=== PATIENT | male | born 1940 | race Caucasian/White ===

== ENCOUNTER 2017-09-09 18:26 | Emergency (ER) | payer OTHER, MEDICARE ==
[~2017-09-09] VITALS: Ht 182.9 cm; Wt 97.5 kg
[2017-09-09 19:03] LABS: ABSOLUTE BASOPHIL COUNT 0.1 /CUMM (0.0-0.2); ABSOLUTE EOSINOPHIL COUNT 0.1 /CUMM (0.0-0.7); ABSOLUTE GRANULOCYTE CT 6.6 /CUMM (1.4-6.5); ABSOLUTE LYMPH COUNT 3.2 /CUMM (1.2-3.4); ABSOLUTE MONOCYTE COUNT 1.1 /CUMM (0.10-0.60); BASOPHIL % 0.9 % (0.0-2.0); EOSINOPHIL % 0.8 % (0-5); GRANULOCYTE % 59.1 % (42.2-75.2); HEMATOCRIT 46.1 % (42-52); MEAN CORPUSCULAR HGB 32.7 PG (27.0-31.0); MEAN CORPUSCULAR HGB CONC 34.4 G/DL (33.0-37.0); MEAN CORPUSCULAR VOLUME 95.1 FL (80.0-94.0); MEAN PLATELET VOLUME 8.1 FL (7.4-10.4); PLATELET COUNT 287 /CUMM (130-400); RBC DISTRIBUTION WIDTH 13.1 % (11.5-14.5); RED BLOOD CELL CT 4.84 /CUMM (4.70-6.10); WHITE BLOOD CELL COUNT 11.2 /CUMM (4.8-10.8)
--- NOTE | 2017-09-09 19:25 | RADIOLOGY REPORT ---
EXAMINATION: XR ELBOW, LEFT CLINICAL INFORMATION: Fall with pain and swelling. COMPARISON: None TECHNIQUE: Four views of the left elbow. FINDINGS: The bones and soft tissues are normal. No fracture or joint effusion. Alignment is anatomic. Joint spaces are maintained. IMPRESSION: No acute findings of the left elbow.
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
[2017-09-09 20:33] VITALS: BP 117/58
== END 2017-09-09 20:33 ==
LOC: ERH 18:26
PROVIDERS: Emergency Medicine
DX: S20.211A Contusion of right front wall of thorax, initial encounter (principal); S09.90XA Unspecified injury of head, initial encounter; W19.XXXA Unspecified fall, initial encounter; Y92.003 Bedroom of unspecified non-institutional (private) residence as the place of occurrence of the external cause; Y93.9 Activity, unspecified
CPT/HCPCS: 73080-LT; 93005; 93010

== ENCOUNTER 2017-09-14 17:56 | Emergency (ER) | payer OTHER, MEDICARE ==
[~2017-09-14] VITALS: Ht 177.8 cm; Wt 86.2 kg
[2017-09-14 18:08] VITALS: BP 129/79
--- NOTE | 2017-09-14 18:19 | ED NECK/BACK PAIN COMPLAINT ---
History of Present Illness General Chief Complaint: Fall Stated Complaint: WORSENING NECK PAIN S/P FALL 2 WEEKS AGO 2ND VISIT Source: patient, old records Exam Limitations: no limitations Vital Signs & Intake/Output Vital Signs & Intake/Output Vital Signs Date Time Temp Pulse Resp B/P B/P Pulse O2 O2 Flow FiO2 Mean Ox Delivery Rate 09/14 1808 98.6 92 18 129/79 98 Room Air Allergies Coded Allergies: No Known Allergies (09/09/17) Reconcile Medications Cyclobenzaprine HCl 10 MG TABLET 1 TAB PO QPM NECK PAIN Ibuprofen 400 MG TABLET 1 TAB PO TID NECK PAIN Oxycodone HCl/Acetaminophen (Oxycodone-Acetaminophen 5-325) 5 MG-325 MG TABLET 1 TAB PO TIDPRN NECK PAIN Triage Note: 76M RETURNS TO ED AFTER BEING SEEN EARLIER THIS WEEK S/P ?SYNCOPAL EPISODE AND FALL, HAD CT OF HEAD, NECK, MAXILLOFACIAL AND CHEST DONE WITH LEFT ELBOX XRAY. REPORTS 2-3 DAYS OF WORSENING CERVICAL PAIN RADIATING INTO SHOULDERS. NOTABLE DECREASED ROM AND UNABLE TO TOLERATE EAR TO SHOULDER OR CHIN TO CHEST. DENIES C-SPINE BONY TENDERNESS. DENIES CHANGE IN TINGLING TO HANDS FROM BASELINE. REPORTS HE DID NOT HAVE RX'S ON DISCHARGE AFTER LAST VISIT. SEEN BY DR PRATHER IN TRIAGE AND MEDICATED WITH IM TORADOL Triage Nurses Notes Reviewed? yes HPI: 76M PMH T2DM, HLD, recently seen in [place] ED for fall 5 days ago, presents with 1 day of severe neck stiffness and pain. 5 days ago got out of bed, tripped and hit his face on a dresser, and fell unconscious to the floor for an unknown period of time. He was worked up in the ED and had imaging of the face, head, neck, and elbow, all of which were negative. He was sent home and was doing well. He had a long car ride yesterday and since then has had severe paraspinal bilateral neck pain radiating to both shoulders. He has difficulty moving his head to the right due to pain. He has chronic paresthesia of both hands that is unchanged. He denies trauma since his fall 5 days ago, and denies fever, chills, vision changes, confusion, hearing changes, extremity weakness/ numbness, imbalance, ataxia. He is otherwise well and has no other complaints. He is walking well and drove here. Past History Travel History Traveled to [place] past 21 day No Medical History Any Pertinent Medical History? see below for history Neurological: NONE EENT: NONE Cardiovascular: hypertension, hyperlipidemia Respiratory: NONE Gastrointestinal: NONE Hepatic: NONE Renal: benign prost hyperplasia Musculoskeletal: NONE Psychiatric: depression, insomnia Endocrine: diabetes Surgical History Surgical History: appendectomy, splenectomy d/t ITP in 2006 cervical neck surgery for herniated disc Psychosocial History Who do you live with Spouse What is your primary language Northern Irish Tobacco Use: Never used ETOH Use: occasional use Illicit Drug Use: denies illicit drug use Family History Hx Contributory? No Review of Systems Review of Systems Constitutional: Reports: no symptoms. Eyes: Reports: no symptoms. Ears, Nose, Throat, Mouth: Reports: no symptoms. Respiratory: Reports: no symptoms. Cardiovascular: Reports: no symptoms. Gastrointestinal/Abdominal: Reports: no symptoms. Musculoskeletal: Reports: see HPI. Skin: Reports: no symptoms. Neurological/Psychological: Reports: no symptoms. All Other Systems: Reviewed and Negative Physical Exam Physical Exam General Appearance: well developed/nourished, mild distress Head: atraumatic, normal appearance Eyes: Bilateral: normal appearance, PERRL, EOMI, normal inspection. Ears, Nose, Throat, Mouth: hearing grossly normal, moist mucous membrane Neck: normal inspection, supple, bilateral paraspinal muscle tenderness, movement to the rightlimited by pain Respiratory: normal breath sounds Cardiovascular: regular rate/rhythm Gastrointestinal: soft, non-tender Back: normal inspection Extremities: normal range of motion Neurologic/Psych: awake, alert, oriented x 3, normal mood/affect Skin: intact, normal color, warm/dry Core Measures CVA/TIA Diagnosis: No Progress Differential Diagnosis: AAA, aortic dissection, C spine injury, carotid dissection, cauda equina syn, herniated disc, myofascial strain, pyelo/UTI, sciatica, spinal cord inj, thoracic outlet syn, T/L spine injury, ureterolithiasis Plan of Care: Current Medications Sig/Laura Start time Last Medication Dose Stop Time Status Admin Ketorolac 30 MG ONCE ONE 09/14 1814 UNVr 09/14 Tromethamine 09/14 (Toradol) Imaging from 5 days ago was negative, no benefit to repeating. Patient has neck strain and can be treated symptomatically. Was educated about treatment at home and when to return to ED. Departure Departure Disposition: HOME OR SELF CARE Condition: Stable Clinical Impression Primary Impression: Neck strain Referrals: Patricia BACK,Amilcar Romero (PCP/Family) Additional Instructions: Follow up with your PCP. The pain medication prescribed may make you sleepy or drowsy. You should not drive while taking this medication. You can use a warm compress or a rice sock on your neck for pain. Hot showers will help as well. Return to ER if any new or worsening symptoms. Departure Forms: Customer Survey General Discharge Information Prescriptions: Current Visit Scripts Cyclobenzaprine HCl 1 TAB PO QPM #30 TAB Oxycodone HCl/Acetaminophen (Oxycodone-Acetaminophen 5-325) 1 TAB PO TIDPRN #15 TAB Ibuprofen 1 TAB PO TID #30 TAB Oxycodone HCl 1 TAB PO TIDPRN #15 TAB
[2017-09-14] MEDS ORDERED: OXYCODONE-ACET1 EACH PO (18:35)
[2017-09-14] MEDS ORDERED: IBUPROFEN400 M1 PO (18:35)
[2017-09-14] MEDS ORDERED: CYCLOBENZAPRINE10 M1 PO (18:35)
[2017-09-14] MEDS ORDERED: OXYCODONE HCL5 M1 PO (18:44)
== END 2017-09-14 18:41 ==
LOC: ERH 17:56
DX: S16.1XXA Strain of muscle, fascia and tendon at neck level, initial encounter (principal); W18.09XA Striking against other object with subsequent fall, initial encounter; Y92.9 Unspecified place or not applicable; Y93.9 Activity, unspecified
CPT/HCPCS: 96372; J1885

== ENCOUNTER 2017-09-20 00:46 | Observation (INO) | payer OTHER, MEDICARE ==
[~2017-09-20] VITALS: Ht 182.9 cm; Wt 97.5 kg
[~2017-09-20 00:46] MED LIST: CYCLOBENZAPRINE10 M1 PO; IBUPROFEN400 M1 PO; OXYCODONE HCL5 M1 PO; OXYCODONE-ACET1 EACH PO
[2017-09-20 01:31] LABS: ABSOLUTE BASOPHIL COUNT 0 /CUMM (0.0-0.2); ABSOLUTE EOSINOPHIL COUNT 0 /CUMM (0.0-0.7); ABSOLUTE GRANULOCYTE CT 7.7 /CUMM (1.4-6.5); ABSOLUTE LYMPH COUNT 1.4 /CUMM (1.2-3.4); ABSOLUTE MONOCYTE COUNT 1.1 /CUMM (0.10-0.60); BASOPHIL % 0.4 % (0.0-2.0); EOSINOPHIL % 0.3 % (0-5); GRANULOCYTE % 75.2 % (42.2-75.2); HEMATOCRIT 42.6 % (42-52); MEAN CORPUSCULAR HGB 32.9 PG (27.0-31.0); MEAN CORPUSCULAR HGB CONC 35.3 G/DL (33.0-37.0); MEAN CORPUSCULAR VOLUME 93.4 FL (80.0-94.0); MEAN PLATELET VOLUME 7.3 FL (7.4-10.4); PLATELET COUNT 393 /CUMM (130-400); RBC DISTRIBUTION WIDTH 12.7 % (11.5-14.5); RED BLOOD CELL CT 4.56 /CUMM (4.70-6.10); WHITE BLOOD CELL COUNT 10.3 /CUMM (4.8-10.8)
--- NOTE | 2017-09-20 02:21 | CT SCAN REPORT ---
EXAMINATION: CT HEAD WITHOUT CONTRAST CLINICAL INFORMATION: Fall, confusion, hallucination COMPARISON: 09/09/2017 TECHNIQUE: Contiguous axial imaging was performed from the skull base to vertex without intravenous administration of contrast. DLP: 627.9 mGy-cm FINDINGS: There is no evidence of acute intracranial hemorrhage or territorial infarction. No abnormal mass effect or midline shift is seen. Mclaughlin to white matter differentiation is well preserved. No extra-axial fluid collections are identified. The ventricles are normal in size. There is no abnormal attenuation within the brain parenchyma. The osseous structures and soft tissues are normal. The mastoid air cells and visualized portions of the paranasal sinuses are well aerated. IMPRESSION: No acute intracranial pathology.
--- NOTE | 2017-09-20 02:22 | RADIOLOGY REPORT ---
EXAMINATION: XR PORTABLE CHEST CLINICAL INFORMATION: Cough, confusion COMPARISON: 09/09/2017 TECHNIQUE: Portable frontal view of the chest was obtained. FINDINGS: Lung volumes are symmetric. No focal consolidation is seen. No evidence of pneumothorax, pleural effusion, or pulmonary edema. The cardiomediastinal contour is unremarkable. No acute osseous findings are seen. IMPRESSION: No acute cardiopulmonary findings.
--- NOTE | 2017-09-20 02:45 | ED AMS/SEIZURE/WEAK/DIZZY ---
History of Present Illness General Chief Complaint: Altered Mental Status Stated Complaint: BIBA AMS Source: patient, family, old records, EMS Exam Limitations: clinical condition, confusion Vital Signs & Intake/Output Vital Signs & Intake/Output Vital Signs Date Time Temp Pulse Resp B/P B/P Pulse O2 O2 Flow FiO2 Mean Ox Delivery Rate 09/20 0510 104 16 129/65 94 Room Air Room Air 09/20 0058 Room Air 09/20 0048 98.4 120 20 135/80 94 Room Air Allergies Coded Allergies: No Known Allergies (09/09/17) Reconcile Medications Cyclobenzaprine HCl 10 MG TABLET 1 TAB PO QPM NECK PAIN Ibuprofen 400 MG TABLET 1 TAB PO TID NECK PAIN Oxycodone HCl 5 MG TABLET 1 TAB PO TIDPRN NECK STRAIN Oxycodone HCl/Acetaminophen (Oxycodone-Acetaminophen 5-325) 5 MG-325 MG TABLET 1 TAB PO TIDPRN NECK PAIN Triage Note: 76YO MALE TO 3 VIA AMB W/CO "PAIN TO THE BACK OF HIS NECK,SHOULDERS SP FALL LAST" STATES HE WAS SEEN HERE, PLACED ON FLEXERIL AND IBUPROFEN BUT THEY ARE NOT WORKING" RAMBLING SPEECH AND UNSTEADY GAIT PRESENT Triage Nurses Notes Reviewed? yes Onset: 2 days Duration: day(s):, constant, continues in ED Timing: recent history Injury Environment: home Severity: moderate, severe Modifying Factors: Worsens With: medication. HPI: 2 days prior to admission family notes patient is had episodic delusions hallucinations and bizarre behavior. He was started on ibuprofen Flexeril Percocet for neck pain after fall 5 days prior to admission. He denies fever chills nausea vomiting diarrhea abdominal pain chest pain shortness of breath headache dysuria rash bleeding. Past History Travel History Traveled to [place] past 21 day No Medical History Any Pertinent Medical History? see below for history Neurological: NONE EENT: NONE Cardiovascular: hypertension, hyperlipidemia Respiratory: NONE Gastrointestinal: NONE Hepatic: NONE Renal: benign prost hyperplasia Musculoskeletal: NONE Psychiatric: depression, insomnia Endocrine: diabetes Surgical History Surgical History: appendectomy, splenectomy d/t ITP in 2006 cervical neck surgery for herniated disc Psychosocial History Who do you live with Spouse What is your primary language Georgian Tobacco Use: Refused to answer Family History Hx Contributory? No Review of Systems Review of Systems Constitutional: Reports: no symptoms. EENTM: Reports: no symptoms. Respiratory: Reports: no symptoms. Cardiovascular: Reports: no symptoms. GI: Reports: no symptoms. Genitourinary: Reports: no symptoms. Musculoskeletal: Reports: see HPI, neck pain. Skin: Reports: no symptoms. Neurological/Psychological: Reports: see HPI, confusion. Hematologic/Endocrine: Reports: no symptoms. Immunologic/Allergic: Reports: no symptoms. All Other Systems: Reviewed and Negative Physical Exam Physical Exam General Appearance: well developed/nourished, alert, awake, anxious, obese Head: atraumatic, normal appearance Eyes: Bilateral: normal appearance, PERRL, EOMI. Ears, Nose, Throat: normal pharynx, normal ENT inspection, hearing grossly normal Neck: normal inspection, supple, full range of motion, no midline tenderness Respiratory: normal breath sounds, chest non-tender, no respiratory distress, quiet respiration, lungs clear Cardiovascular: regular rate/rhythm, normal peripheral pulses, norml femoral pulses equa Peripheral Pulses: 4+ carotid (R), 4+ carotid (L) Gastrointestinal: normal bowel sounds, soft, non-tender, no organomegaly Back: normal inspection, normal range of motion Extremities: normal range of motion, no ligament instability Neurologic/Psych: no motor/sensory deficits, awake, alert, oriented x 3, normal gait, normal mood/affect, nurse orthopedic II-XII nml as tested Reflexes: 2+: bicep (R), bicep (L). Skin: intact, normal color, warm/dry Lymphatic: no anterior cervical carolyn Core Measures ACS in differential dx? No CVA/TIA Diagnosis No Sepsis Present: No Sepsis Focused Exam Completed? No Progress Differential Diagnosis: alcohol intoxication, CVA/stroke, drug intoxication, electrolyte imbalance, hypoxia, intracranial Hem., pneumonia Plan of Care: Orders Procedure Date/time Status Regular Diet 09/20 B Active Intake & Output 09/20 0511 Active Add-on Test (ER Only) 09/20 0503 Active Patient Data 09/20 0413 Active OXYGEN SETUP (GEN) 09/20 032 Active Saline Lock 09/[address] in observation 09/20 032 Active Vital Signs 09/21 327 Active Activity/Ambulation 09/21 327 Active Code Status 09/21 327 Active URINE DRUG SCREEN FOR ER ONLY 09/20 104 Complete ACETOMINOPHEN 09/20 104 Complete SALICYLATE 09/20 104 Complete AMMONIA 09/20 104 Complete ETHANOL 09/20 104 Complete COMPREHENSIVE METABOLIC PANEL 09/20 104 Complete CBC WITHOUT DIFFERENTIAL 09/20 104 Complete Laboratory Tests 09/20/17 0502: Urine Color Cancelled, Urine Clarity Cancelled, Urine pH Cancelled, Ur Specific [place] Cancelled, Urine Protein Cancelled, Urine Ketones Cancelled, Urine Nitrite Cancelled, Urine Bilirubin Cancelled, Urine Urobilinogen Cancelled, Ur Leukocyte Esterase Cancelled, Ur Microscopic Cancelled, Urine Hemoglobin Cancelled, Urine Glucose Cancelled 09/20/17 0124: Anion Gap 16, Estimated GFR 59 L, BUN/Creatinine Ratio 19.2, Glucose 122 H, Calcium 9.3, Total Bilirubin 0.7, AST 19, ALT 28, Alkaline Phosphatase 105, Ammonia < 9 L, Total Protein 6.9, Albumin 3.8, Globulin 3.1, Albumin/Globulin Ratio 1.2, CBC w Diff NO MAN DIFF REQ, RBC 4.56 L, MCV 93.4, MCH 32.9 H, MCHC 35.3, RDW 12.7, MPV 7.3 L, Gran % 75.2, Lymphocytes % 13.5 L, Monocytes % 10.6 H, Eosinophils % 0.3, Basophils % 0.4, Absolute Granulocytes 7.7 H, Absolute Lymphocytes 1.4, Absolute Monocytes 1.1 H, Absolute Eosinophils 0, Absolute Basophils 0, Salicylates < 1.0, Acetaminophen < 10.0 L, Serum Alcohol < 10.0 09/20/17 0110: Urine Opiates Screen 168, Methadone Screen 67, Barbiturate Screen < 60, Ur Phencyclidine Scrn < 6.00, Amphetamines Screen < 100, U Benzodiazepines Scrn < 85, Urine Cocaine Screen < 50, Urine Cannabis Screen > 80.00 H Diagnostic Imaging: Viewed by Me: Radiology Read, CT Scan. Discussed w/RAD: Radiology Read, CT Scan. Radiology Impression: No acute intracranial pathology. CXR Impression: No acute cardiopulmonary findings. 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
[2017-09-20] MEDS ORDERED: FINASTERIDE5 M1 PO (05:18)
[2017-09-20] MEDS ORDERED: TRAZODONE HCL50 M1 PO (05:18)
[2017-09-20] MEDS ORDERED: METFORMIN HCL500 M3 PO (05:19)
[2017-09-20] MEDS ORDERED: ATORVASTATIN CA20 M1 PO (05:19)
[2017-09-20] MEDS ORDERED: RAMIPRIL2.5 M1 PO (05:19)
[2017-09-20] MEDS ORDERED: PAROXETINE HC37.5 MG PO (05:19)
--- NOTE | 2017-09-20 05:28 | History & Physical ---
Emiliano Rodríguez 09/20/17 0528: General Information and HPI MD Statement: I have seen and personally examined SHILOH DINH and documented this H&P. The patient is a 76 year old M who presented with a patient stated chief complaint of [AMS]. Source of Information: patient, family, old records History of Present Illness: This is 76-year-old man with medical history of hypertension, hyperlipidemia, prediabetes, benign prostatic hyperplasia, ITP status post splenectomy, anxiety, depression, insomnia, status post C6 disc repair 1979. Patient presented to the emergency department the chief complaint of altered mental status and confusion for the past 3 days. part of the HX was provided by his son on bedside. Patient stated that around 2 weeks ago when he dry to move out from his bed in the middle of the night he fell down and hit his head and he couple of his teeth and he lost his consciousness according to his , patient at that time he stated that he presented to the hospital and he was discharged from the emergency department. These after that patient be present to the emergency department with a chief complaint of severe neck and back pain and he was prescribed Percocet, oxycodone and Flexeril additional ibuprofen him a patient stated that for the past 6 days he's been taking this medication and he also reports smoking marijuana daily for the past 40 years to help him with his pain, the son stated that since Sunday according to the patient didn't notice he started to have some visual hallucinations and become AMS. According to the family the patient started to see a 7-year-old boy in his car, and also his son stated that he was seeing his granddaughter and can't blink in front of him and there were no one in the room. Patient by himself report that he saw the boy and blond women infront of him. Patient stated that this is the first time he had the symptoms. The family report that for the past couple date the patient oral intake wasn't that good. Also the patient reports some on and off pain during urination. Patient deny any chest pain or increasing shortness of breath, heart racing fever, chills, abdominal pain, lower extremity edema, nausea, vomiting, hematuria, bloody bowel movement. In the emergency department patient had positive U tox for marijuana. Head CAT scan and chest x-ray came back within normal limits. Allergies/Medications Allergies: Coded Allergies: No Known Allergies (09/09/17) Home Med list Atorvastatin Calcium 20 MG TABLET 1 TAB PO DAILY HLD (Reported) Cyclobenzaprine HCl 10 MG TABLET 1 TAB PO QPM NECK PAIN Finasteride 5 MG TABLET 1 TAB PO DAILY BPH (Reported) Ibuprofen 400 MG TABLET 1 TAB PO TID NECK PAIN Metformin HCl 500 MG TABLET 1 TAB PO DAILY PRE dm (Reported) Oxycodone HCl 5 MG TABLET 1 TAB PO TIDPRN NECK STRAIN Oxycodone HCl/Acetaminophen (Oxycodone-Acetaminophen 5-325) 5 MG-325 MG TABLET 1 TAB PO TIDPRN NECK PAIN Paroxetine HCl 37.5 MG TAB.ER.24H 1 TAB PO DAILY DEPRESSION (Reported) Ramipril 2.5 MG CAPSULE 1 CAP PO DAILY HTN (Reported) Trazodone HCl 50 MG TABLET 1 TAB PO QPM SLEEP (Reported) Past History Travel History Traveled to [place] past 21 day No Medical History Neurological: NONE EENT: NONE Cardiovascular: hypertension, hyperlipidemia Respiratory: NONE Gastrointestinal: NONE Hepatic: NONE Renal: benign prost hyperplasia Musculoskeletal: NONE Psychiatric: depression, insomnia Endocrine: diabetes Surgical History Surgical History: appendectomy, splenectomy d/t ITP in 2006 cervical neck surgery for herniated disc Past Family/Social History Functional Ability ADLs Independent: dressing, eating, toileting, bathing. Ambulation: independent IADLs Independent: shopping, housework, finances, food prep, telephone, transportation , medication admin. Review of Systems Review of Systems Constitutional: Reports: see HPI. Cardiovascular: Reports: see HPI. Respiratory: Reports: see HPI. GI: Reports: see HPI. Genitourinary: Reports: see HPI. Exam & Diagnostic Data Last 24 Hrs of Vital Signs/I&O Vital Signs Date Time Temp Pulse Resp B/P B/P Pulse O2 O2 Flow FiO2 Mean Ox Delivery Rate 09/20 0510 104 16 129/65 94 Room Air Room Air 09/20 0058 Room Air 09/20 0048 98.4 120 20 135/80 94 Room Air Intake & Output 09/20 0800 09/20 0000 09/19 1600 Intake Total 490 Output Total 220 Balance 270 Intake, IV 250 Intake, Oral 240 Output, Urine 220 Patient 215 lb Weight Physical Exam General Appearance Alert, Oriented X3, Cooperative, No Acute Distress HEENT Atraumatic, PERRLA, EOMI Neck Supple, No JVD Cardiovascular Regular Rate, Normal S1, Normal S2 Lungs Clear to Auscultation, Normal Air Movement Neurological Normal Speech, Strength at 5/5 X4 Ext, Sensation Intact, Cranial Nerves 3-12 NL Extremities No Edema Last 24 Hrs of Labs/Stevie: Laboratory Tests 09/20/17 0502: Urine Color Cancelled, Urine Clarity Cancelled, Urine pH Cancelled, Ur Specific Vina Cancelled, Urine Protein Cancelled, Urine Ketones Cancelled, Urine Nitrite Cancelled, Urine Bilirubin Cancelled, Urine Urobilinogen Cancelled, Ur Leukocyte Esterase Cancelled, Ur Microscopic Cancelled, Urine Hemoglobin Cancelled, Urine Glucose Cancelled 09/20/17 0124: Anion Gap 16, Estimated GFR 59 L, BUN/Creatinine Ratio 19.2, Glucose 122 H, Calcium 9.3, Total Bilirubin 0.7, AST 19, ALT 28, Alkaline Phosphatase 105, Ammonia < 9 L, Total Protein 6.9, Albumin 3.8, Globulin 3.1, Albumin/Globulin Ratio 1.2, CBC w Diff NO MAN DIFF REQ, RBC 4.56 L, MCV 93.4, MCH 32.9 H, MCHC 35.3, RDW 12.7, MPV 7.3 L, Gran % 75.2, Lymphocytes % 13.5 L, Monocytes % 10.6 H, Eosinophils % 0.3, Basophils % 0.4, Absolute Granulocytes 7.7 H, Absolute Lymphocytes 1.4, Absolute Monocytes 1.1 H, Absolute Eosinophils 0, Absolute Basophils 0, Salicylates < 1.0, Acetaminophen < 10.0 L, Serum Alcohol < 10.0 09/20/17 011: Urine Opiates Screen 168, Methadone Screen 67, Barbiturate Screen < 60, Ur Phencyclidine Scrn < 6.00, Amphetamines Screen < 100, U Benzodiazepines Scrn < 85, Urine Cocaine Screen < 50, Urine Cannabis Screen > 80.00 H, Urine Color Pending, Urine Clarity Pending, Urine pH Pending, Ur Specific Vina Pending, Urine Protein Pending, Urine Ketones Pending, Urine Nitrite Pending, Urine Bilirubin Pending, Urine Urobilinogen Pending, Ur Leukocyte Esterase Pending, Ur Microscopic SEDIMENT EXAMINED, Urine RBC Pending, Urine Hemoglobin Pending, Urine Glucose Pending Microbiology 09/20 109 URINE ROUT: Urine Culture - RECD Diagnostic Data CXR Results EXAMINATION: XR PORTABLE CHEST CLINICAL INFORMATION: Cough, confusion COMPARISON: 09/09/2017 TECHNIQUE: Portable frontal view of the chest was obtained. FINDINGS: Lung volumes are symmetric. No focal consolidation is seen. No evidence of pneumothorax, pleural effusion, or pulmonary edema. The cardiomediastinal contour is unremarkable. No acute osseous findings are seen. IMPRESSION: No acute cardiopulmonary findings. Other Results EXAMINATION: CT HEAD WITHOUT CONTRAST CLINICAL INFORMATION: Fall, confusion, hallucination COMPARISON: 09/09/2017 TECHNIQUE: Contiguous axial imaging was performed from the skull base to vertex without intravenous administration of contrast. DLP: 627.9 mGy-cm FINDINGS: There is no evidence of acute intracranial hemorrhage or territorial infarction. No abnormal mass effect or midline shift is seen. Mclaughlin to white matter differentiation is well preserved. No extra-axial fluid collections are identified. The ventricles are normal in size. There is no abnormal attenuation within the brain parenchyma. The osseous structures and soft tissues are normal. The mastoid air cells and visualized portions of the paranasal sinuses are well aerated. IMPRESSION: No acute intracranial pathology. Assessment/Plan Assessment: This is 76-year-old man with medical history of hypertension, hyperlipidemia, prediabetes, benign prostatic hyperplasia, ITP status post splenectomy, anxiety, depression, insomnia, status post C6 disc repair 1979. Patient presented to the emergency department the chief complaint of altered mental status and confusion for the past 3 days. part of the HX was provided by his son on bedside. Problem list: -Altered mental status/confusion/hallucinations most likely due to polypharmacy -Generalized weakness -Volume depletion Plan: -Admit patient to general medicine floor -Vitals every shift -Gentle IV fluid hydration normal saline at 75 per hour -Physical therapy consultation in -Avoid any delirum trigger -Avoid any opioid -Otherwise continue home medication -Accu-Chek, carbohydrate consistent diet -Pain pathway -DVT ppt: SC levonox -Full code As Ranked By This Provider Problem List: 1. Altered mental status 2. Marijuana abuse Core Measures/Misc (02/04) Acute Coronary Syndrome ACS Diagnosis: No Congestive Heart Failure Congestive Heart Failure Diagnosis No Cerebrovascular Accident CVA/TIA Diagnosis: No VTE (View Protocol) VTE Risk Factors Age>40 No Mechanical VTE Prophylaxis d/t N/A MechProphylax Ordered No VTE Pharm Prophylaxis d/t NA PharmProphylax ordered Sepsis (View protocol) Sepsis Present: No Silver BACK, [facility] 09/20/17 0604: Attending MD Review Statement Attending Statement Attending MD Statement: examined this patient, discuss w/resident/PA/FUELS ENGINEER, agreed w/resident/PA/FUELS ENGINEER, discussed with family, reviewed images, amended to note Attending Assessment/Plan: 76 yo M with h/o ITP s/p splenectomy, liver hemangioma, HTN, BPH, T2DM, CKD stage 3, depression, chronic neck pain s/p cervical spine surgery for herniated disc with chronic paresthesias, is brought in for evaluation of bizarre behaviour, auditory hallucinations, confusion and unsteady gait for the past 3 days. Patient sustained a fall while asleep 2 weeks ago, was found by with face to ground. He was evaluated at [facility] on September 09, imaging negative and was discharged home. He returned to the ER on September 14 for neck stiffness and pain, was prescribed flexeril, percocet, ibuprofen and oxycodone for pain management. Please note patient is also a chronic marijuana user and states he uses it for pain, not sure where he gets it from though. He does not have a medical marijuana card. Vitals stable except for tachycardia. Neurologically intact, slight unsteady with gait. Labs: BUN 23, glucose 122, ammonia negative, UA negative. Urine tox positive for cannabis. Alcohol <10. Tylenol and salicylate levels negative. CT head and CXR are negative. Assessment and plan: 1. Confusion, auditory hallucinations 2. Acute delirium, toxic encephalopathy 3. Chronic marijuana user 4. Polypharmacy - prescription opiates, muscle relaxants and drug abuse 5. Tachycardia ?drug induced - 23 hour observation on general medicine - Neurochecks Q4 - Fall precautions - Obtain EKG - IV fluids - Monitor for any signs of worsening delirium - Frequent orientation - Discontinue opiates, sedative meds - Use tylenol as needed for pain - PT and OT therapy - Consider Nellie-pysh consult if symptoms do not improve - Resume all home meds atorvastatin, finasteride, paroxetine, ramipril, trazodone. - Hold metformin, place on accucheks and novolog SS DVT ppx Lovenox. Full code Observation Initial Note - I have personally examined SHILOH DINH on 09/20/17 at 0604. The disposition of SHILOH DINH is uncertain at this time and before a determination can be made, he requires a period of observation for the following reasons [Confusion, auditory hallucinations likely medication side effect]
[2017-09-20 06:00] VITALS: BP 120/74
--- NOTE | 2017-09-20 07:56 | Event Note ---
Event Note Event Note: 76-year-old male with past medical history of ITP status post splenectomy, liver hemangioma, hypertension, BPH, Type 2 diabetes, CK D stage III, chronic neck pain status post cervical spine surgery for herniated disc with chronic paresthesia, chronic cannabis use, was brought in to the emergency for altered mental status. His urine examination was positive for opiates as well as cannabis, which is explained by the fact that he recently had visited emergency department, was prescribed opiates, in both his visits, and the history from the patient saying he took pain medications in excess when he thought he was having severe pain. His corroborated the story that he had 30 pills with him at home, but now only 2 pills were found. Fortunately, the patient has had a remarkable recovery, not requiring any antidotes, did not have any respiratory depression, and does not have any altered mental status at all. Patient, with his permission, his , his sister, his son, together were all involved in group discussion about his current health condition, and ways to avoid over medications. Everyone understood the condition, and all questions were answered. He also agreed to seek his PCPs help to get physical therapy after his discharge. No meds were prescribed on his discharge.
[2017-09-20 08:13] LABS: ABSOLUTE BASOPHIL COUNT 0 /CUMM (0.0-0.2); ABSOLUTE EOSINOPHIL COUNT 0 /CUMM (0.0-0.7); ABSOLUTE GRANULOCYTE CT 6.8 /CUMM (1.4-6.5); ABSOLUTE LYMPH COUNT 1.5 /CUMM (1.2-3.4); ABSOLUTE MONOCYTE COUNT 1.2 /CUMM (0.10-0.60); BASOPHIL % 0.4 % (0.0-2.0); EOSINOPHIL % 0.5 % (0-5); GRANULOCYTE % 71.1 % (42.2-75.2); HEMATOCRIT 43.2 % (42-52); MEAN CORPUSCULAR HGB 32.5 PG (27.0-31.0); MEAN CORPUSCULAR HGB CONC 34.3 G/DL (33.0-37.0); MEAN CORPUSCULAR VOLUME 94.8 FL (80.0-94.0); MEAN PLATELET VOLUME 7.7 FL (7.4-10.4); PLATELET COUNT 396 /CUMM (130-400); RBC DISTRIBUTION WIDTH 12.9 % (11.5-14.5); RED BLOOD CELL CT 4.56 /CUMM (4.70-6.10); WHITE BLOOD CELL COUNT 9.5 /CUMM (4.8-10.8)
--- NOTE | 2017-09-20 13:32 | Patient Discharge Instructions ---
Discharge Instructions General Discharge Information You were seen/treated for: Altered mental status, likely due to med overdose Special Instructions: Please visit your PCP after dischrage. Please make sure about the instructions for all your medications, and call us if in doubt. Diet Continue normal diet: Yes Activity Full Activity/No Limits: No Activity Self Limited: Yes Acute Coronary Syndrome Inclusion Criteria At DC or during hospital stay patient has or had the following: ACS DIAGNOSIS No Discharge Core Measures Meds if any: Prescribed or Continued at Discharge Meds if any: NOT Prescribed or Continued at Discharge Congestive Heart Failure Inclusion Criteria At DC or during hospital stay patient has or had the following: CHF DIAGNOSIS No Discharge Core Measures Meds if any: Prescribed or Continued at Discharge Meds if any: NOT Prescribed or Continued at Discharge Cerebrovascular accident Inclusion Criteria At DC or during hospital stay patient has or had the following: CVA/TIA Diagnosis No Discharge Core Measures Meds if any: Prescribed or Continued at Discharge Meds if any: NOT Prescribed or Continued at Discharge Venous thromboembolism Inclusion Criteria VTE Diagnosis No VTE Type NONE VTE Confirmed by (Test) NONE Discharge Core Measures - Per Current guidelines, there needs to be overlap - treatment for the first 5 days of Warfarin therapy. - If discharged on Warfarin prior to 5 days of - overlap therapy, the patient will need to be - assessed for post discharge needs including - *Post discharge parental anticoagulation - *Warfarin and/or parental anticoagulation education - *Follow up date to check INR post discharge At least 5 days overlap therapy as Inpatient No Meds if any: Prescribed or Continued at Discharge Note: Overlap Therapy is Warfarin and Anticoagulant Meds if any: NOT Prescribed or Continued at Discharge
[2017-09-20] MEDS ORDERED: CYCLOBENZAPRINE10 M1 PO (13:44)
[2017-09-20 14:16] VITALS: BP 116/70
== END 2017-09-20 14:46 ==
LOC: ERH 00:46 → 2NA 03:28 → ERHI 03:28 → ENRESERV 04:50 → 2NA 05:38 → ENPENDDIS 14:00 → ENTRNSPT 14:37 → 2NA 14:46 → CMPTRNSPT 14:46
PROVIDERS: Emergency Medicine; Internal Medicine Hematology & Oncology
DX: G92 Toxic encephalopathy (principal); F05 Delirium due to known physiological condition; I12.9 Hypertensive chronic kidney disease with stage 1 through stage 4 chronic kidney disease, or unspecified chronic kidney disease; E11.22 Type 2 diabetes mellitus with diabetic chronic kidney disease; N18.3 Chronic kidney disease, stage 3 (moderate); N40.0 Benign prostatic hyperplasia without lower urinary tract symptoms; D69.3 Immune thrombocytopenic purpura; F41.9 Anxiety disorder, unspecified; F32.9 Major depressive disorder, single episode, unspecified; G47.00 Insomnia, unspecified; E86.9 Volume depletion, unspecified; D18.03 Hemangioma of intra-abdominal structures; R44.0 Auditory hallucinations; R26.9 Unspecified abnormalities of gait and mobility; M54.2 Cervicalgia; F11.20 Opioid dependence, uncomplicated; R00.0 Tachycardia, unspecified; Z79.84 Long term (current) use of oral hypoglycemic drugs; F12.20 Cannabis dependence, uncomplicated
CPT/HCPCS: 6030; 71045; 80307; 81001; 82436; 87086; 93005; 93010; 97116-GP; 97161-GP; G0378; G0480; G8978-GP; G8979-GP; G8980-GP; J1650

== ENCOUNTER 2017-09-26 16:42 | Emergency (ER) | payer OTHER, MEDICARE ==
[~2017-09-26] VITALS: Ht 182.9 cm; Wt 93.9 kg
[~2017-09-26 16:42] MED LIST changes: +ATORVASTATIN CA20 M1 PO; +FINASTERIDE5 M1 PO; +METFORMIN HCL500 M3 PO; +PAROXETINE HC37.5 MG PO; +RAMIPRIL2.5 M1 PO; +TRAZODONE HCL50 M1 PO
[2017-09-26 16:58] VITALS: BP 117/63
--- NOTE | 2017-09-26 17:04 | ED UPPER/LOWER EXTREMITY COMPL ---
History of Present Illness General Chief Complaint: Lower Extremity Problems Stated Complaint: PT THINKS HIS RT ANKLE ISBROKEN Source: patient Exam Limitations: no limitations Vital Signs & Intake/Output Vital Signs & Intake/Output Vital Signs Date Time Temp Pulse Resp B/P B/P Pulse O2 O2 Flow FiO2 Mean Ox Delivery Rate 09/26 1658 97.8 94 18 117/63 94 Room Air Allergies Coded Allergies: No Known Allergies (09/26/17) Reconcile Medications Atorvastatin Calcium 20 MG TABLET 1 TAB PO DAILY HLD (Reported) Cyclobenzaprine HCl 10 MG TABLET 1 TAB PO QPM PRN NECK PAIN Finasteride 5 MG TABLET 1 TAB PO DAILY BPH (Reported) Ibuprofen 400 MG TABLET 1 TAB PO TID NECK PAIN Metformin HCl 500 MG TABLET 1 TAB PO DAILY PRE dm (Reported) Oxycodone HCl 5 MG TABLET 1 TAB PO TIDPRN NECK STRAIN Paroxetine HCl 37.5 MG TAB.ER.24H 1 TAB PO DAILY DEPRESSION (Reported) Ramipril 2.5 MG CAPSULE 1 CAP PO DAILY HTN (Reported) Trazodone HCl 50 MG TABLET 1 TAB PO QPM SLEEP (Reported) Triage Note: PT TO TRIAGE FOR RIGHT ANKLE PAIN P ROLLING IT GETTING OUT OF BED, SOME SWELLING NOTED, ICE APPLIED, TOOK TYLENOL AT HOME, DENIES MOTRIN BECAUSE HE TAKES MELOXICAM AT HOME Triage Nurses Notes Reviewed? yes Onset: Abrupt Duration: constant Timing: single episode today Severity: severe Severity Numbers: 8 HPI: Patient is a 36-year-old male with a past medical history of hypertension hyperlipidemia, BPH, anxiety depression who was recently admitted to [facility] for observation for concerns of altered mental status in which old records indicate there was concerns of polysubstance abuse where patient was overusing his previously prescribed opiates and combining this with marijuana and muscle relaxers. He no longer gets prescribed opiates in which today he was in his normal state of health patient states that getting out of his bed at 1430 he fell and twisted his right ankle and had acute onset of sharp stabbing severe right ankle pain. Patient denies any preceding episode of lightheaded sensation or dizziness denies any foot or knee pain. Patient took Tylenol before arrival. Patient states ambulation makes worse. (Deandra SALAMANCA,Antonio) Past History Travel History Traveled to [place] past 21 day No Medical History Any Pertinent Medical History? 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 No (Antonio Lazcano) Review of Systems Review of Systems Constitutional: Reports: no symptoms. EENTM: Reports: no symptoms. Respiratory: Reports: no symptoms. Cardiovascular: Reports: no symptoms. Gastrointestinal/Abdominal: Reports: no symptoms. Genitourinary: Reports: no symptoms. Musculoskeletal: Reports: see HPI, joint pain, joint swelling. Skin: Reports: no symptoms. Neurological/Psychological: Reports: no symptoms. Hematologic/Endocrine: Reports: no symptoms. Immunological: Reports: no symptoms. All Other Systems: Reviewed and Negative (Antonio Lazcano) Physical Exam Physical Exam General Appearance: no apparent distress, alert, comfortable Head: atraumatic Eyes: Bilateral: normal appearance. Ears, Nose, Throat: hearing grossly normal Neck: normal inspection Peripheral Pulses: 2+ dorsalis pedis (R) Neurologic/Tendon: normal sensation, normal motor functions, normal tendon functions, responds to pain, no evidence tendon injury, no pulse deficit Skin: intact, normal color, warm/dry Comments: Right knee normal inspection nontender Right ankle noted general his point tenderness swelling and decreased active range of motion Right foot normal section nontender pedal pulse +2 (Antonio Lazcano) Progress Differential Diagnosis: arterial insufficiency, compartment syndrome, contusion, dislocation, DVT, fracture, gout, septic arthritis, sprain, tendon injury Plan of Care: Orders Procedure Date/time Status XRY-ANKLE 3 OR MORE VIEWS R 09/26 1700 Active Current Medications Sig/Laura Start time Last Medication Dose Stop Time Status Admin Ibuprofen 600 MG ONCE ONE 09/26 1699 UNVr (Motrin) 09/26 1700 Due to past medical history and recent admission of polysubstance abuse and opiate misuse that he was offered Motrin in the emergency room, Patient does have concerned of right distal fibular fracture. Using Malhotra an Kannan wrap I also used with orthopedic glass, I applied splinting to the right ankle of a posterior splint and a stirrup. Pre-and post- neurovascular was intact. PT WAS GIVEN A STEERABLE ROLLING KNEE WALKER Patient felt comfortable to be safely discharged home. I strongly advised patient that if he did not feel comfortable with his mobility to return to emergency room. Diagnostic Imaging: Viewed by Me: Radiology Read. Radiology Impression: acute abnormality Comments: PATIENT: SHILOH DINH PRESENT AGE: 76 PATIENT ACCOUNT NO: [id number] : 41 LOCATION: [facility] ORDERING PHYSICIAN: Antonio SALAMANCA SERVICE DATE: 09/26/17 EXAM TYPE: RAD - XRY-ANKLE 3 OR MORE VIEWS R EXAMINATION: XR ANKLE, RIGHT CLINICAL INFORMATION: Right ankle pain. COMPARISON: None TECHNIQUE: AP, lateral, and mortise views of the right ankle. FINDINGS: The talar dome is well-positioned within the ankle mortise. Acute, oblique fracture of the distal fibular metadiaphysis with 0.2 cm lateral displacement of the distal fibular fragment (i.e., Malhotra B injury). Soft tissues of the lateral ankle are mildly swollen. No evidence of medial malleolar or posterior malleolar fracture. Small plantar calcaneal enthesophyte. IMPRESSION: Acute, minimally displaced, oblique fracture of the distal fibular metadiaphysis. DICTATED BY: Familia Hernandez MD DATE/TIME DICTATED:09/26/171718 ROVING WEIGHT GAUGER:LOREN DATE/TIME TRANSCRIBED:09/26/171718 CONFIDENTIAL, DO NOT COPY WI (Deandra SALAMANCA,Antonio) Departure Departure Disposition: HOME OR SELF CARE Condition: Stable Clinical Impression Primary Impression: Closed fracture of right distal fibula Referrals: Patricia BACK,Amilcar Romero (PCP/Family) Bebo Aquino MD Additional Instructions: As discussed begin to elevate the foot for swelling. Begin [id number] Motrin or Tylenol for pain. The splint that has been given to you in the emergency room, leave this on all Times until you follow up with the orthopedic doctor, tomorrow please follow up with orthopedic Dr. Aquino for further evaluation treatment. If symptoms worsen return to emergency room. Begin using the walker that you have at home for weightbearing as tolerated Departure Forms: Customer Survey General Discharge Information Prescriptions: Current Visit Scripts [Steerable Knee Walke] UNIT ONCE #1 STEERABLE KNEE WALKER DX- RIGHT DISTAL FIBULAR FRACTURE (Antonio Lazcano) PA/CORONER TECHNICIAN Co-Sign Statement Statement: ED Attending supervision documentation- [x] I saw and evaluated the patient. I have also reviewed all the pertinent lab results and diagnostic results. I agree with the findings and the plan of care as documented in the PA's/CORONER TECHNICIAN's documentation. [] I have reviewed the ED Record and agree with the PA's/CORONER TECHNICIAN's documentation. [] Additions or exceptions (if any) to the PAs/CORONER TECHNICIAN's note and plan are summarized below: [] (Qiuncy Corral DO)
--- NOTE | 2017-09-26 17:25 | RADIOLOGY REPORT ---
EXAMINATION: XR ANKLE, RIGHT CLINICAL INFORMATION: Right ankle pain. COMPARISON: None TECHNIQUE: AP, lateral, and mortise views of the right ankle. FINDINGS: The talar dome is well-positioned within the ankle mortise. Acute, oblique fracture of the distal fibular metadiaphysis with 0.2 cm lateral displacement of the distal fibular fragment (i.e., Malhotra B injury). Soft tissues of the lateral ankle are mildly swollen. No evidence of medial malleolar or posterior malleolar fracture. Small plantar calcaneal enthesophyte. IMPRESSION: Acute, minimally displaced, oblique fracture of the distal fibular metadiaphysis.
[2017-09-26] MEDS ORDERED: [UNRECOGNIZED DRUG - SUPPLY] (17:47)
== END 2017-09-26 19:09 ==
LOC: ERH 16:42
DX: S82.431A Displaced oblique fracture of shaft of right fibula, initial encounter for closed fracture (principal); X58.XXXA Exposure to other specified factors, initial encounter; Y92.003 Bedroom of unspecified non-institutional (private) residence as the place of occurrence of the external cause; Y93.89 Activity, other specified
CPT/HCPCS: 73610-RT

== ENCOUNTER 2017-11-12 12:27 | Inpatient (IN) | payer OTHER, MEDICARE ==
[~2017-11-12] VITALS: Ht 182.9 cm; Wt 85.3 kg
[~2017-11-12 12:27] MED LIST changes: +[UNRECOGNIZED DRUG - SUPPLY]
[2017-11-12] MEDS ORDERED: MELOXICAM15 M1 PO (13:15)
--- NOTE | 2017-11-12 13:15 | ED GENERAL ADULT ---
History of Present Illness General Chief Complaint: General Adult Stated Complaint: SIB DR MAXWELL FOR ADMISSION S/P CAT SCAN RESULTS Source: patient Exam Limitations: no limitations Allergies Coded Allergies: No Known Allergies (09/26/17) Reconcile Medications Atorvastatin Calcium 20 MG TABLET 1 TAB PO DAILY HLD (Reported) Finasteride 5 MG TABLET 1 TAB PO DAILY BPH (Reported) Meloxicam 15 MG TABLET 1 TAB PO DAILY PAIN (Reported) Metformin HCl 500 MG TABLET 1 TAB PO DAILY PRE dm (Reported) Paroxetine HCl 37.5 MG TAB.ER.24H 1 TAB PO DAILY DEPRESSION (Reported) Ramipril 2.5 MG CAPSULE 1 CAP PO DAILY HTN (Reported) Trazodone HCl 50 MG TABLET 1 TAB PO QPM SLEEP (Reported) Triage Note: 77 Y/O MALE SENT IN BY DR GUTIERREZ FOR ADMISSION SECONDARY TO CT RESULTS, ? OSTEOMYLITIS/ABCESS IN CERVICAL NECK. PT REPORTS PAIN AND FEVERS X WEEK. PT REPORTS PAIN WORSE LAST NIGHT, RELIEVED WITH TRAMADOL AND TYLENOL LAST NIGHT WITH GOOD EFFECT (NO MEDS TAKEN TODAY). EVAL'D BY JADYN MARIE AND TAKEN TO ROOM 2 FOR BLOODWORK/EKG Triage Nurses Notes Reviewed? yes Onset: Gradual Duration: week(s): Timing: constant HPI: 77-year-old male history of hypertension, hyperlipidemia, diabetes, ITP presenting with neck pain 2 months and fevers one week. Reports two mechanical falls in early September where she struck his mouth and lost several teeth, no direct C-spine trauma, but states this is when his pain initially began. He has had gradually worsening neck pain over the past few weeks and now with fevers. Reports a C6 discectomy 30 years ago, no recent C-spine surgical interventions. No history of IV drug use. Denies back pain, numbness, paresthesias. Patient was seen by his PMD Dr. Marshall had outpatient CT that showed C-spine osteomyelitis and discitis with questionable epidural phlegmon versus abscess. (Sophie Angel) Vital Signs & Intake/Output Vital Signs & Intake/Output Vital Signs Date Time Temp Pulse Resp B/P B/P Pulse O2 O2 Flow FiO2 Mean Ox Delivery Rate 11/12 1659 98.8 85 18 136/70 95 Room Air 11/12 1418 98.6 125/62 96 Room Air 11/12 1235 98.6 103 18 114/76 95 Room Air (Grace BACK,Quincy Holland) Past History Travel History Traveled to [place] past 21 day No Medical History Any Pertinent Medical History? 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 No (Sophie Angel) Review of Systems Review of Systems Constitutional: Reports: see HPI. EENTM: Reports: no symptoms. Respiratory: Reports: no symptoms. Cardiovascular: Reports: no symptoms. GI: Reports: no symptoms. Genitourinary: Reports: no symptoms. Musculoskeletal: Reports: see HPI. Skin: Reports: no symptoms. Neurological/Psychological: Reports: no symptoms. Hematologic/Endocrine: Reports: no symptoms. Immunologic/Allergic: Reports: no symptoms. (Sophie Angel) Physical Exam Physical Exam General Appearance: well developed/nourished, no apparent distress, alert, awake , comfortable Head: atraumatic, normal appearance Eyes: Bilateral: normal appearance, PERRL, EOMI. Neck: normal inspection, supple, full range of motion, diffuse midline tenderness to palpation Respiratory: normal breath sounds, lungs clear Cardiovascular: regular rate/rhythm Gastrointestinal: soft, non-tender Back: normal inspection, normal range of motion, no vertebral tenderness Extremities: normal inspection Neurologic/Psych: no motor/sensory deficits, awake, alert, oriented x 3, normal gait, normal mood/affect, field checker II-XII nml as tested, cerebellar function intact Skin: intact, normal color, warm/dry Core Measures ACS in differential dx? No CVA/TIA Diagnosis: No Sepsis Present: No Sepsis Focused Exam Completed? No (Sophie Angel) Progress Differential Diagnoses I considered the following diagnoses in my evaluation of the patient: [ Osteomyelitis versus discitis versus epidural abscess versus sepsis] Initial ED EKG: NSR, no ST T wave changes (Sophie Angel) Plan of Care: Orders Procedure Date/time Status XRY-CERV SPINE 4 OR 5 VIEWS 11/13 0700 Active Nothing by Mouth 11/12 D Active Pathway - chart 11/12 1623 Active House Staff 11/12 1623 Active Patient Data 11/12 1623 Active Code Status 11/12 1623 Active URINALYSIS 11/12 1620 Active URINE DRUGS OF ABUSE 11/12 1619 Active LACTIC ACID 11/12 1538 Active Misc Message 11/12 1458 Active ED Holding Orders 11/12 1458 Active Admit to inpatient 11/12 1458 Active Patient Data 11/12 1458 Active Vital Signs 11/12 1458 Active Code Status 11/12 1458 Complete Intake & Output 11/12 1314 Active BLOOD CULTURE 11/12 1238 Active TROPONIN LEVEL 11/12 1238 Complete LACTIC ACID 11/12 1238 Complete WESTERGREN SED RATE 11/12 1238 Complete C-REACTIVE PROTEIN 11/12 1238 Complete COMPREHENSIVE METABOLIC PANEL 11/12 1238 Complete CBC WITHOUT DIFFERENTIAL 11/12 1238 Complete EKG 11/12 1238 Active VTE Mechanical Prophylaxis 11/12 UNK Active MISTAKE 11/12 UNK Active Splints 11/12 UNK Active Intake & Output 11/12 UNK Active [place] Coma Scale 11/12 UNK Active Activity/Ambulation 11/12 UNK Active Current Medications Sig/Laura Start time Last Medication Dose Stop Time Status Admin Atorvastatin Calcium 20 MG DAILY 11/13 09 AC (Lipitor) Finasteride 5 MG DAILY 11/13 899 AC (Proscar) Lisinopril 10 MG DAILY 11/13 09 AC (Prinivil) Paroxetine HCl 20 MG DAILY 11/13 09 AC (Paxil) Acetaminophen 650 MG Q6P PRN 11/12 1630 AC (Tylenol) Lidocaine 1 PAT Q24H 11/12 1630 AC 11/12 (Lidoderm) 1657 Morphine Sulfate 2 MG Q4P PRN 11/12 1630 AC (MORPHINE SULFATE) Oxycodone/ 1 TAB Q6P PRN 11/12 1630 AC Acetaminophen (Percocet) Laboratory Tests 11/12/ 1308: Anion Gap 10, Estimated GFR > 60, BUN/Creatinine Ratio 22.2, Glucose 108 H, Lactic Acid 1.2, Calcium 9.7, Total Bilirubin 0.5, AST 17, ALT 20 L, Alkaline Phosphatase 106, Troponin I < 0.01, C-Reactive Prot, Quant 3.2 H, Total Protein 6.8, Albumin 3.6, Globulin 3.2, Albumin/Globulin Ratio 1.1, CBC w Diff NO MAN DIFF REQ, RBC 4.39 L, MCV 94.1 H, MCH 32.5 H, MCHC 34.6, RDW 13.2, MPV 7.8, Gran % 66.3, Lymphocytes % 21.3, Monocytes % 10.7 H, Eosinophils % 0.5, Basophils % 1.2, Absolute Granulocytes 6.7 H, Absolute Lymphocytes 2.2, Absolute Monocytes 1.1 H, Absolute Eosinophils 0.1, Absolute Basophils 0.1, ESR Westergren 55 H Microbiology 11/12 1308 BLOOD: Blood Culture - RECD 11/12 1257 BLOOD: Blood Culture - RECD Labs including cultures sent. Patient covered with vancomycin and ceftriaxone. MRI shows no drainable collection. Discussed with neurosurgery attending and surgical PA. [facility] admit to [facility]. 6:15PM Pt initially endorses mechanical falls, but is now stating that he believes his two falls were syncopal episodes. Discussed with hospitalist and will change admission to tele. (Sophie Angel) (Grace BACK,Quincy Holland) Departure Departure Disposition: STILL A PATIENT Condition: Stable Clinical Impression Primary Impression: Osteomyelitis Secondary Impressions: Discitis, Epidural abscess Referrals: Patricia BACK,Amilcar Romero (PCP/Family) Departure Forms: Customer Survey General Discharge Information Admission Note Spoke With: Nita Jacobs MD Documentation of Exam: Documentation of any treatments & extenuating circumstances including Concerns Regarding Discharge (functional status, medication knowledge or non-compliance, living conditions, etc.) that warrant an admission rather than observation: [IV antibiotics, neurosurgical evaluation, possible surgical intervention for epidural abscess drainage and washout, hemodynamic monitoring] (Sophie Angel) PA/OBSERVER [employer]LECT[employer]OSPECTING Co-Sign Statement Statement: ED Attending supervision documentation- [X] I saw and evaluated the patient. I have also reviewed all the pertinent lab results and diagnostic results. I agree with the findings and the plan of care as documented in the PA's/OBSERV[employer]PECTING's documentation. Pt presents at request of PMD for possible spinal abscess/myeltis seen on ct scan. Physical examination reveals a grossly nonfocal neurologic examination and otherwise comfortable/conversant patient. [] I have reviewed the ED Record and agree with the PA's/OBS[employer]PECTING's documentation. [] Additions or exceptions (if any) to the PAs/OBS[employer]ER [employer]PECTING's note and plan are summarized below: [] (Grace BACK,Quincy Holland) Critical Care Note Critical Care Note Critical Care Time: 30-74 min (Caitlyn SALAMANCA,Sophie)
[2017-11-12 13:21] LABS: ABSOLUTE BASOPHIL COUNT 0.1 /CUMM (0.0-0.2); ABSOLUTE EOSINOPHIL COUNT 0.1 /CUMM (0.0-0.7); ABSOLUTE GRANULOCYTE CT 6.7 /CUMM (1.4-6.5); ABSOLUTE LYMPH COUNT 2.2 /CUMM (1.2-3.4); ABSOLUTE MONOCYTE COUNT 1.1 /CUMM (0.10-0.60); BASOPHIL % 1.2 % (0.0-2.0); EOSINOPHIL % 0.5 % (0-5); GRANULOCYTE % 66.3 % (42.2-75.2); HEMATOCRIT 41.3 % (42-52); MEAN CORPUSCULAR HGB 32.5 PG (27.0-31.0); MEAN CORPUSCULAR HGB CONC 34.6 G/DL (33.0-37.0); MEAN CORPUSCULAR VOLUME 94.1 FL (80.0-94.0); MEAN PLATELET VOLUME 7.8 FL (7.4-10.4); PLATELET COUNT 333 /CUMM (130-400); RBC DISTRIBUTION WIDTH 13.2 % (11.5-14.5); RED BLOOD CELL CT 4.39 /CUMM (4.70-6.10); WHITE BLOOD CELL COUNT 10.1 /CUMM (4.8-10.8)
--- NOTE | 2017-11-12 14:47 | History & Physical ---
Chan BACK,[facility] 11/12/17 1446: General Information and HPI MD Statement: I have seen and personally examined SHILOH DINH and documented this H&P. The patient is a 77 year old M who presented with a patient stated chief complaint of [worsening neck pain]. Source of Information: patient, family, old records Exam Limitations: no limitations History of Present Illness: 76-year-old man with medical history of hypertension, hyperlipidemia, prediabetes, benign prostatic hyperplasia, ITP status post splenectomy, anxiety, depression, insomnia, status post C6 disc repair 1979. Patient states his symptoms have been going on for the past two months now. He recalls the inciting event when he initially fell down (September 09), while rushing out of bed to use the bathroom, when he accidentally tripped and fell down on the floor, losing his teeth. He was seen in the ER at the time and had a CT of his head which showed no acute traumatic injury of the head, face, or cervical spine. The next week (September 16) he had another fall for which he was seen in the [place] ER with complains of severe neck pain. He was prescribed pain killers and muscle relaxants at the time and discharged. On September 20, the patient was admitted under observation for AMS which was attributed to pain medications. The patient presented again (September 26) after another fall with concerns of ankle fracture. He was provided an orthopedic referral and subsequently received physical therapy. A week after around mid-September , the patient mentions that he had some dental work done for his broken teeth. Today he had a root canal that was done. Throughout this period, he states that his neck pain has been progressively getting worse. He descibes his neck pain as sharp, 8/10 in severity, radiating downwards, constant in nature, aggravated with exercise with no relieving factors. He denies any weakness, numbess, pins/needles sensation or loss of bowel/urinary control. However, he does endorses lightheadedness which is new for him experiencing every time he gets up from bed. He was seen in his PCP office a few days ago and was recommended a CAT scan of neck which came back with findings suggestive of osteomyelitis of the neck. The patient was recommended to come to the ER for further management. Endorses fevers and chills for the past 2-3 weeks but is unsure how high his temperature was he did not measure it. Allergies/Medications Allergies: Coded Allergies: No Known Allergies (09/26/17) Home Med list Atorvastatin Calcium 20 MG TABLET 1 TAB PO DAILY HLD (Reported) Finasteride 5 MG TABLET 1 TAB PO DAILY BPH (Reported) Meloxicam 15 MG TABLET 1 TAB PO DAILY PAIN (Reported) Metformin HCl 500 MG TABLET 1 TAB PO DAILY PRE dm (Reported) Paroxetine HCl 37.5 MG TAB.ER.24H 1 TAB PO DAILY DEPRESSION (Reported) Ramipril 2.5 MG CAPSULE 1 CAP PO DAILY HTN (Reported) Trazodone HCl 50 MG TABLET 1 TAB PO QPM SLEEP (Reported) Past History Travel History Traveled to [place] past 21 day No Medical History Neurological: NONE EENT: NONE Cardiovascular: hypertension, hyperlipidemia Respiratory: NONE Gastrointestinal: NONE Hepatic: NONE Renal: benign prost hyperplasia Musculoskeletal: NONE Psychiatric: depression, insomnia Endocrine: diabetes Blood Disorders: ITP Cancer(s): NONE CLINICAL NURSING DIRECTOR/Reproductive: NONE Surgical History Surgical History: appendectomy, splenectomy d/t ITP in 2005 cervical neck surgery for herniated disc Past Family/Social History Functional Ability ADLs Independent: dressing, eating, toileting, bathing. Ambulation: independent IADLs Independent: shopping, housework, finances, food prep, telephone, transportation , medication admin. Review of Systems Review of Systems Constitutional: Reports: chills, fever. EENTM: Reports: no symptoms. Cardiovascular: Denies: chest pain, palpitations. Respiratory: Denies: cough, short of breath. GI: Denies: abdominal pain, diarrhea. Genitourinary: Reports: nocturia. Musculoskeletal: Reports: joint pain, muscle pain. Skin: Reports: no symptoms. Neurological/Psychological: Denies: headache, numbness, paresthesia, tingling. Exam & Diagnostic Data Last 24 Hrs of Vital Signs/I&O Vital Signs Date Time Temp Pulse Resp B/P B/P Pulse O2 O2 Flow FiO2 Mean Ox Delivery Rate 11/12 1418 98.6 125/62 96 Room Air 11/12 1235 98.6 103 18 114/76 95 Room Air Intake & Output 11/12 1600 11/12 0800 11/12 0000 Intake Total 0 Output Total Balance 0 Intake, Oral 0 Patient 190 lb Weight Weight Reported by Patient Measurement Method Physical Exam General Appearance Alert, Oriented X3, Cooperative, Mild Distress Skin No Rashes, No Breakdown Skin Temp/Moisture Exam: Warm/Dry Sepsis Skin Exam (color): Normal for Ethnicity HEENT Atraumatic Neck palpable tenderness at C5-6 level Cardiovascular Normal S1, Normal S2, No Murmurs Lungs Normal Air Movement Abdomen Soft, No Tenderness Neurological Normal Speech, Strength at 5/5 X4 Ext, Sensation Intact, Cranial Nerves 3-12 NL, palpable tenderness in neck around C6. weakness with turning face against resistance Extremities No Edema Last 24 Hrs of Labs/Stevie: Laboratory Tests 11/12/17 1308: Anion Gap 10, Estimated GFR > 60, BUN/Creatinine Ratio 22.2, Glucose 108 H, Lactic Acid 1.2, Calcium 9.7, Total Bilirubin 0.5, AST 17, ALT 20 L, Alkaline Phosphatase 106, Troponin I < 0.01, C-Reactive Prot, Quant 3.2 H, Total Protein 6.8, Albumin 3.6, Globulin 3.2, Albumin/Globulin Ratio 1.1, CBC w Diff NO MAN DIFF REQ, RBC 4.39 L, MCV 94.1 H, MCH 32.5 H, MCHC 34.6, RDW 13.2, MPV 7.8, Gran % 66.3, Lymphocytes % 21.3, Monocytes % 10.7 H, Eosinophils % 0.5, Basophils % 1.2, Absolute Granulocytes 6.7 H, Absolute Lymphocytes 2.2, Absolute Monocytes 1.1 H, Absolute Eosinophils 0.1, Absolute Basophils 0.1, ESR Westergren 55 H Microbiology 11/12 1308 BLOOD: Blood Culture - RECD 11/12 1257 BLOOD: Blood Culture - RECD Assessment/Plan Assessment: 76-year-old man with medical history of hypertension, hyperlipidemia, prediabetes, benign prostatic hyperplasia, ITP status post splenectomy, anxiety, depression, insomnia, status post C6 disc repair 1979 was sent in to the ED by his PCP after findings of osteomyelitis on his CT scan. Assessment: 1. 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 2. Hyperkalemia 3. History of diabetes Plan: * Admit patient to telemetry. * He has already received IV Vancomycin and Ceftriaxone in the ER. * Would hold off further antibiotics at this time. * Blood cultures - pending * Await MRI - results * ESR - pending. His CRP was high. * Neurosugrical evaluation * Soft collar of the neck was recommended to the patient but he is refusing this currently. * ID consult * Hyperkalemia can be watched for now. Will repeat BEP in am. * Hold Metformin, Trazodone and Meloxicam at this time. * Insulin SS with Accucheks * Diet: Diabetic. NPO after midnight * DVT Prophylaxis: SC Lovenox * Code: Full Code As Ranked By This Provider Problem List: 1. Epidural abscess Core Measures/Misc (02/04) Acute Coronary Syndrome ACS Diagnosis: No Congestive Heart Failure Congestive Heart Failure Diagnosis No Cerebrovascular Accident CVA/TIA Diagnosis: No VTE (View Protocol) VTE Risk Factors Age>40 No Mechanical VTE Prophylaxis d/t N/A MechProphylax Ordered No VTE Pharm Prophylaxis d/t NA PharmProphylax ordered Sepsis (View protocol) Sepsis Present: No If YES complete Sepsis Event Note If YES complete Sepsis Event Note Alek BACK,[facility] 11/12/17 1459: Core Measures/Misc (02/04) Sepsis (View protocol) If YES complete Sepsis Event Note If YES complete Sepsis Event Note Resident Review Statement Resident Statement: examined this patient, discussed with internet network specialist, agreed with internet network specialist Other Findings: This is a 77-year-old male with past medical history significant for hypertension, BPH, hyperlipidemia, ITP status post splenectomy 2005, anxiety, depression, disc repair at the level of C6 in 1979, who was sent in by his PCP Dr. Thomason for further evaluation of cervical spine osteomyelitis. Apparently, patient had imaging performed on the outpatient basis for evaluation of his chronic back pain and it showed evidence of acute changes in cervical spine. Notably, a maxillofacial CT on 09/09/2017 was relatively normal other than some narrowing at the level of C6-C7, however his November 09 CT shows concern for infection infection. Pt states that he had a series of falls since July. Several falls have resulted in significant trauma as his first fall resulted in loss of three teeth and then in September 26 he another fall that resulted in broken ankle, and last week he fell again and lost two additional teeth. He states that he has had chronic neck pain since his episode of discitis in 1979, but it has acutely worsened since August. He states that for the past three nights he has had 8/10 constant stabbing pain in his neck radiating to his mid back that prevented him sleeping. Due to falls he had seen Dr. Gomez his PCP who ordered a CAT scan of neck which came back today with the findings. Notably pt has had dental surgery around Mid-September and today. He complains of fevers for 2-3 weeks, along with chills. He also endorses dizziness prior to each fall which gets worse when he stands up suddenly He also has chronic r. index finger pins and needles. Other figueredo he denies any weakness , headache, nausea, vomiting, diarrhea. He does endorse some constipation. Notably, patient had an admission to [facility] in September 20, 2017 for chief complaint of altered mental status which was thought to be secondary to polypharmacy. ASSESSMENT: This is a 77-year-old male with past medical history significant for hypertension, BPH, hyperlipidemia, ITP status post splenectomy 2005, anxiety, depression, disc repair at the level of C6 in 1979, who was sent in by his PCP Dr. Thomason for further evaluation of cervical spine osteomyelitis. CAT scan shows " new erosive endplate changes and there is new vertebral body height loss involving the C5-C6 opposing endplates and an anterior endplate osteophyte at this level. Progressive opposing endplate erosive changes at C6- C7. There is prevertebral soft tissue swelling and possible anterior epidural soft tissue at these levels. Findings are concerning for the sequela of osteomyelitis discitis with paravertebral and possibly epidural phlegmon and/or abscess." A CAT scan 3 months ago shows no evidence of infectious changes in spine, so these changes seem more acute in nature. In addressing possible etiologies of bacteremia pt has had recent dental surgery and trauma w/ broken bone and soft tissue injury to his LE. Pt has no weakness or focal neurologic deficits and further intervention will be guided by pending MRI. PLAN: Cervical osteomyelitis/discitis/epidual abscess: * ESR * CRP * Blood culture * Urine culture * Awaiting MRI * Appreciate ID recs * Appreciate neurosurgery recs * Got Vanc and Ceftriaxone in ED. Will await MRI prior to more abx. Hyperkalemia: K 5.4. No intervention at this time. * Con't monitor HLD: * Con't statin DM: * Hold metformin * FS * CCD * SS HTN: * Con't Home ACEi HOLDING: Trazadone and Meloxicam Note that is bringing his med list as he is unsure of the doses of meds FC Chem ppx NPO pending possible intervention. Jason BACK,[facility] 11/12/17 1520: Core Measures/Misc (02/04) Sepsis (View protocol) If YES complete Sepsis Event Note If YES complete Sepsis Event Note Attending MD Review Statement Attending Statement Attending MD Statement: examined this patient, discuss w/resident/PA/SERVICE CENTER MANAGER, agreed w/resident/PA/SERVICE CENTER MANAGER, discussed with family, reviewed EMR data (avail), discussed with nursing, reviewed images, amended to note Attending Assessment/Plan: 77-year-old male with past medical history significant for hypertension, hyperlipidemia, diabetes, depression, insomnia who was sent in from Dr. Pinedo's office after his CT cervical spine shows evidence off discitis and possible loss to myelitis. Patient had a history of cervical spine surgery in 1979. He has been complaining of neck pain for last 2 months. It is worse from last 2 days. Now the pain is almost 8-9 out of 10 in intensity and it is shooting down into his arms and his shoulder. He denies any low back pain. He did complain of some headache. He denies any blurriness of vision. He denies any weakness as such but he also has a right ankle fracture that occurred few weeks ago. Therefore his gait is not perfect and he does complain of some pain in his right ankle when he walks. He denies any urinary or stool incontinence. Vital Signs Date Time Temp Pulse Resp B/P B/P Pulse O2 O2 Flow FiO2 Mean Ox Delivery Rate 11/12 1418 98.6 125/62 96 Room Air 11/12 1235 98.6 103 18 114/76 95 Room Air on exam; aox3, nad. cv; s1,s2, rrr resp; clear abd; soft, nt, bs+ ext; no edema neuro: Non focal. rom at right ankle is somewhat limited. Laboratory Tests 11/12 1308 Chemistry Sodium (137 - 145 mmol/L) 140 Potassium (3.5 - 5.1 mmol/L) 5.4 H Chloride (98 - 107 mmol/L) 100 Carbon Dioxide (22 - 30 mmol/L) 30 Anion Gap (5 - 16) 10 BUN (9 - 20 mg/dL) 20 Creatinine (0.7 - 1.2 mg/dL) 0.9 Estimated GFR (>60 ml/min) > 60 BUN/Creatinine Ratio (7 - 25 %) 22.2 Glucose (65 - 99 mg/dL) 108 H Lactic Acid (0.7 - 2.1 mmol/L) 1.2 Calcium (8.4 - 10.2 mg/dL) 9.7 Total Bilirubin (0.2 - 1.3 mg/dL) 0.5 AST (17 - 59 U/L) 17 ALT (21 - 72 U/L) 20 L Alkaline Phosphatase (< 127 U/L) 106 Troponin I (<0.11 ng/ml) < 0.01 C-Reactive Prot, Quant (<1.0 mg/dL) 3.2 H Total Protein (6.3 - 8.2 g/dL) 6.8 Albumin (3.5 - 5.0 g/dL) 3.6 Globulin (1.9 - 4.2 gm/dL) 3.2 Albumin/Globulin Ratio (1.1 - 2.2 %) 1.1 Hematology CBC w Diff NO MAN DIFF REQ WBC (4.8 - 10.8 /CUMM) 10.1 RBC (4.70 - 6.10 /CUMM) 4.39 L Hgb (14.0 - 18.0 G/DL) 14.3 Hct (42 - 52 %) 41.3 L MCV (80.0 - 94.0 FL) 94.1 H MCH (27.0 - 31.0 PG) 32.5 H MCHC (33.0 - 37.0 G/DL) 34.6 RDW (11.5 - 14.5 %) 13.2 Plt Count (130 - 400 /CUMM) 333 MPV (7.4 - 10.4 FL) 7.8 Gran % (42.2 - 75.2 %) 66.3 Lymphocytes % (20.5 - 51.1 %) 21.3 Monocytes % (1.7 - 9.3 %) 10.7 H Eosinophils % (0 - 5 %) 0.5 Basophils % (0.0 - 2.0 %) 1.2 Absolute Granulocytes (1.4 - 6.5 /CUMM) 6.7 H Absolute Lymphocytes (1.2 - 3.4 /CUMM) 2.2 Absolute Monocytes (0.10 - 0.60 /CUMM) 1.1 H Absolute Eosinophils (0.0 - 0.7 /CUMM) 0.1 Absolute Basophils (0.0 - 0.2 /CUMM) 0.1 ESR Westergren (0 - 10 MM) 55 H EKG>>> NSR. CT HEAD AND CERVICAL SPINE WITHOUT CONTRAST. IMPRESSION: 1. No acute intracranial abnormality. 2. There are new erosive endplate changes and there is new vertebral body height loss involving the C5-C6 opposing endplates and an anterior endplate osteophyte at this level. Progressive opposing endplate erosive changes at C6-C7. There is prevertebral soft tissue swelling and possible anterior epidural soft tissue at these levels. Findings are concerning for the sequela of osteomyelitis discitis with paravertebral and possibly epidural phlegmon and/or abscess. A cervical spine MRI with and without contrast is recommended for further assessment. A/P: 77-year-old male with past medical history significant for hypertension, hyperlipidemia, diabetes, depression, insomnia sent in from his primary care doctor's office with complains of neck pain and CT of the cervical spine showing possible discitis/osteomyelitis with paravertebral and possibly epidural phlegmon and/or abscess. Patient received vancomycin and ceftriaxone in the emergency room. Patient is getting cervical spine MRI. Neurosurgery consult has been called. We'll also consult infectious disease. Currently neurosurgeon is an operating room therefore we could not speak with Dr. Méndez directly. Will follow up cultures. Hold any antiplatelet patient taking any. Confirm and continue the rest of the home meds. Sliding scale insulin and Accu-Cheks for diabetes. DVT prophylaxis: Mechanical until we know plan from a neurosurgical standpoint. Discussed with patient's at bedside
--- NOTE | 2017-11-12 16:07 | Cons- Neurosurgical ---
Emil Ji 11/12/17 1530: General Information and HPI Consulting Request Date of Consult: 11/12/17 Requested By: Noreen Gomez MD Reason for Consult: Cervical osteo/discitis, possible abscess Source of Information: patient History of Present Illness: This is a 77 year-old male who presents to the emergency room at the request of his PCP, Dr. Gloria due to findings on a outpatient CT cervical spinal preformed on 11/09/17, which revealed finding concerning for osteomyelitis discitis with paravertebral and possibly epidural phlegmon and/or abscess at C5-C6, C6-C7. Patient reports history of a mechanical fall 2 months ago while getting up out of bed at night to urinate, he felt lightheaded and feel face forward and broke his two front teeth. He reports having temporary fillers twice due to the intial filler coming out due to chewing gum. He reports having a root canal and bridge placed today. During his inital fall in August, he presented to [place] [facility] two days after the fall on 09/09/17 where he had a CT head and cervical spine which revealed no acute traumatic injury of the head, face, or cervical spine. The following week he had another fall which and was prescribed narcotics and muscle relaxants, which resulted in AMS changes approximately 4 days later and was admitted due to polysubstance use. He reports falling again on 09/26/17, which resulted in a right ankle fracture and was placed in a boot and did not require surgical intervention. Since then he reports progressively worsening constant sharp neck pain that radiates down the midline of his back with assoicated fevers and chills. He reports a baseline history of numbness/parasthesias in his left index finger and lightheadedness when he gets up quickly. He denies further numbness, parathesias, headache, stool/urine incontience, dizziness, nausea, vomiting, vision or changes in speech. Allergies/Medications Allergies: Coded Allergies: No Known Allergies (09/26/17) Home Med List: Atorvastatin Calcium 20 MG TABLET 1 TAB PO DAILY HLD (Reported) Finasteride 5 MG TABLET 1 TAB PO DAILY BPH (Reported) Meloxicam 15 MG TABLET 1 TAB PO DAILY PAIN (Reported) Metformin HCl 500 MG TABLET 1 TAB PO DAILY PRE dm (Reported) Paroxetine HCl 37.5 MG TAB.ER.24H 1 TAB PO DAILY DEPRESSION (Reported) Ramipril 2.5 MG CAPSULE 1 CAP PO DAILY HTN (Reported) Trazodone HCl 50 MG TABLET 1 TAB PO QPM SLEEP (Reported) Past History Medical History Neurological: NONE EENT: NONE Cardiovascular: hypertension, hyperlipidemia Respiratory: NONE Gastrointestinal: NONE Hepatic: NONE Renal: benign prost hyperplasia Musculoskeletal: NONE Psychiatric: depression, insomnia Endocrine: diabetes Blood Disorders: ITP Cancer(s): NONE 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 Ambulation: independent IADLs Independent: shopping, housework, finances, food prep, telephone, transportation , medication admin. Review of Systems Review of Systems: As per HPI Exam & Diagnostic Data Vital Signs and I&O Vital Signs Date Time Temp Pulse Resp B/P B/P Pulse O2 O2 Flow FiO2 Mean Ox Delivery Rate 11/12 1418 98.6 125/62 96 Room Air 11/12 1235 98.6 103 18 114/76 95 Room Air Intake & Output 11/12 1600 11/12 0800 11/12 0000 11/11 1600 11/11 0800 11/11 0000 Intake Total 0 Output Total Balance 0 Intake, Oral 0 Patient 190 lb Weight Weight Reported by Patient Measurement Method Physical Exam: General: resting comfortably accompained by his in nad Cardiac: S1S2 noted, RRR Lungs: CTAB Abdomen: Soft, nontender Extremities: paraspinal tenderness noted along the posterior C4-6 region, no edema or calf tenderness noted Neuro: A&O x3, UE 5/5, LE 5/5, sensory intact, no gross focal deficits Last 24 Hours of Labs: Laboratory Tests 11/12 1308 Chemistry Sodium (137 - 145 mmol/L) 140 Potassium (3.5 - 5.1 mmol/L) 5.4 H Chloride (98 - 107 mmol/L) 100 Carbon Dioxide (22 - 30 mmol/L) 30 Anion Gap (5 - 16) 10 BUN (9 - 20 mg/dL) 20 Creatinine (0.7 - 1.2 mg/dL) 0.9 Estimated GFR (>60 ml/min) > 60 BUN/Creatinine Ratio (7 - 25 %) 22.2 Glucose (65 - 99 mg/dL) 108 H Lactic Acid (0.7 - 2.1 mmol/L) 1.2 Calcium (8.4 - 10.2 mg/dL) 9.7 Total Bilirubin (0.2 - 1.3 mg/dL) 0.5 AST (17 - 59 U/L) 17 ALT (21 - 72 U/L) 20 L Alkaline Phosphatase (< 127 U/L) 106 Troponin I (<0.11 ng/ml) < 0.01 C-Reactive Prot, Quant (<1.0 mg/dL) 3.2 H Total Protein (6.3 - 8.2 g/dL) 6.8 Albumin (3.5 - 5.0 g/dL) 3.6 Globulin (1.9 - 4.2 gm/dL) 3.2 Albumin/Globulin Ratio (1.1 - 2.2 %) 1.1 Hematology CBC w Diff NO MAN DIFF REQ WBC (4.8 - 10.8 /CUMM) 10.1 RBC (4.70 - 6.10 /CUMM) 4.39 L Hgb (14.0 - 18.0 G/DL) 14.3 Hct (42 - 52 %) 41.3 L MCV (80.0 - 94.0 FL) 94.1 H MCH (27.0 - 31.0 PG) 32.5 H MCHC (33.0 - 37.0 G/DL) 34.6 RDW (11.5 - 14.5 %) 13.2 Plt Count (130 - 400 /CUMM) 333 MPV (7.4 - 10.4 FL) 7.8 Gran % (42.2 - 75.2 %) 66.3 Lymphocytes % (20.5 - 51.1 %) 21.3 Monocytes % (1.7 - 9.3 %) 10.7 H Eosinophils % (0 - 5 %) 0.5 Basophils % (0.0 - 2.0 %) 1.2 Absolute Granulocytes (1.4 - 6.5 /CUMM) 6.7 H Absolute Lymphocytes (1.2 - 3.4 /CUMM) 2.2 Absolute Monocytes (0.10 - 0.60 /CUMM) 1.1 H Absolute Eosinophils (0.0 - 0.7 /CUMM) 0.1 Absolute Basophils (0.0 - 0.2 /CUMM) 0.1 ESR Westergren (0 - 10 MM) 55 H Imaging Results: SERVICE DATE: 11/09/17151 EXAM TYPE: CAT - CT CERV SPINE WO IV CONTRAST; CT HEAD WO IV CONTRAST CT HEAD WITHOUT IV CONTRAST CT CERVICAL SPINE WITHOUT IV CONTRAST INDICATION: 3 falls in one month. COMPARISON: Head CT 09/20/2017. Cervical spine CT 09/09/2017. TECHNIQUE: Multidetector CT acquisitions of the head and cervical spine were obtained without IV contrast. Multiplanar reformats were acquired and utilized for image interpretation. FINDINGS: HEAD: Arachnoid granulations within the occipital bone. There is no intracranial hemorrhage, hydrocephalus, extra-axial surface collection, midline shift, or other herniation pattern. Mclaughlin to white matter differentiation is diffusely maintained without evidence of an evolved acute territorial infarct. The basilar cisterns are preserved. No significant soft tissue abnormality. No acute osseous abnormality. The paranasal sinuses and the mastoid air cells are well-aerated. CERVICAL SPINE: There are new erosive endplate changes and vertebral body height loss involving the C5-C6 opposing endplates and an anterior endplate osteophyte at this level. There is prevertebral soft tissue swelling at these levels and possible anterior epidural soft tissue at these levels. Findings are concerning for the sequela of osteomyelitis discitis with paravertebral and possibly epidural phlegmon. A cervical spine MRI with and without contrast is recommended for further assessment. There are left foraminotomy changes at C6-C7. The craniocervical and atlantoaxial articulations are normal. No significant soft tissue abnormality within the neck. The visualized lung apices are clear. IMPRESSION: 1. No acute intracranial abnormality. 2. There are new erosive endplate changes and there is new vertebral body height loss involving the C5-C6 opposing endplates and an anterior endplate osteophyte at this level. Progressive opposing endplate erosive changes at C6-C7. There is prevertebral soft tissue swelling and possible anterior epidural soft tissue at these levels. Findings are concerning for the sequela of osteomyelitis discitis with paravertebral and possibly epidural phlegmon and/or abscess. A cervical spine MRI with and without contrast is recommended for further assessment. Findings discussed with Dr. Gomez at 4:17 PM on 11/09/2017. Assessment/Plan Assessment/Plan This is a 77 year-old male who presents with a progressively worsening neck pain and fever with imaging concerning for osteomyelitis, discitis with prevertebral soft tissue swelling and a possible epidural phlegmon and/or abscess at C5-C6, C6-C7 likely due to recent dental procedure Admit to medical service Await MRI w/ and w/o gadolinium Continue IV antibiotics Recommend soft cervical collar Follow up blood cultures Further recommendations to follow pending MRI Discussed with Dr. Méndez Consult Acknowledgment - Thank you for your consult request. Kimberli Méndez MD 11/12/17 0538: Assessment/Plan Consult Acknowledgment - Thank you for your consult request.
--- NOTE | 2017-11-12 17:19 | MRI REPORT ---
MR CERVICAL SPINE WITHOUT AND WITH CONTRAST CLINICAL INFORMATION: Neck pain and fever with possible osteomyelitis discitis. COMPARISON: Cervical spine CT 11/09/2017. TECHNIQUE: MRI of the cervical spine without and with contrast was obtained using routine sequences. Intravenous contrast: Gadavist 9 mL. FINDINGS: Enhancing marrow replacement throughout the C5, C6, and C7 vertebral bodies as well as the C5-C6 and C6-C7 intervertebral discs compatible with osteomyelitis discitis at these levels. Possible early osteomyelitis discitis involving the anterior aspect of C4-C5. There is enhancing epidural phlegmon at the C4-C7 levels flattening the ventral cord and resulting in moderate central canal stenosis at C5-C6 and C6-C7. There is enhancing paravertebral soft tissue at C4-C7 compatible with paravertebral phlegmon. There is longus coli muscle Myositis. No discrete drainable soft tissue abscess is identified. No discrete epidural abscess. Engorgement of the ventral epidural venous plexus above the levels of osteomyelitis discitis. No cord signal abnormality. The cervical arterial flow voids are maintained. Reversal of the cervical lordosis. The vertebral body heights are maintained. Severe disc volume loss at C5-C6 and C6-C7 and moderate disc volume loss at C4-C5. The craniocervical junction is unremarkable. C2-C3: Disc contour normal. No central canal stenosis and no foraminal stenosis. C3-C4: Slight anterior subluxation. Right paracentral disc osteophyte complex flattens the right ventral cord resulting in mild narrowing of the central canal. Uncovertebral joint hypertrophy and hypertrophic facet arthropathy result in moderate right and mild left foraminal stenosis. C4-C5: Shallow central disc protrusion flattens the ventral cord, resulting in mild to moderate central canal stenosis. Uncovertebral joint hypertrophy and hypertrophic facet arthropathy result in severe right and mild left foraminal stenosis. C5-C6: As discussed above there is enhancing epidural phlegmon that flattens the ventral cord resulting in moderate central canal stenosis. There is disc osteophyte also indenting the ventral thecal sac. Uncovertebral joint spurring and hypertrophic facet arthropathy result in severe bilateral foraminal stenosis. C6-C7: Enhancing epidural phlegmon flattens the ventral cord resulting in moderate central canal stenosis of the C6 vertebral body level. Left foraminotomy changes. Uncovertebral joint spurring with mild foraminal narrowing bilaterally. C7-T1: Disc contour is normal. No central canal stenosis and no foraminal stenosis. IMPRESSION: - There is osteomyelitis discitis at C5-C6, C6-C7, and possibly involving the anterior aspect of C4-C5 associated with enhancing epidural phlegmon at C4-C7 that results in flattening of the ventral cord and moderate central canal stenosis at C5-C6 and C6-C7. There is also enhancing paravertebral retropharyngeal phlegmon at these levels and there is longus coli myositis. No discrete abscesses. - Cervical spondylosis as discussed above. These findings were discussed with Dr. Garibay at 5:09 PM on 11/12/2017.
--- NOTE | 2017-11-12 17:21 | PN- Neurosurgical ---
See Addendum Surgical Brief Attending Note Brief Attending Note: Pt's history and imaging reviewed including the MRI C-spine done today c/w osteomyelitis, discitis of C4/5, C5/6, C6/7 with pre and paravertebral enhancement and anterior longitudinal epidural enhancement from C1 to C7 c/w engorged, prominent venous plexus vs. granulation/phlegmon superimposed on multilevel spondylosis and DDD, kyphosis, and mild to mod canal stenosis with mild ventral thecal sac compression without any cord signal change. Would await result of blood cultures. could consider biopsy of the prevertebral collection to culture organism vs. multilevel anterior corpectomy and reconstruction though no compelling symptomatic compression or clear epidural abscess requiring urgent surgery at this time in this pt with axial neck pain and normal neuro exam. soft collar for comfort. obtain baseline cervical xrays - AP, lat views call with questions.
--- NOTE | 2017-11-12 17:21 | Cons- Infect Disease ---
General Information and HPI Consulting Request Date of Consult: 11/12/17 Requested By: Noreen Gomez MD Reason for Consult: Cervical discitis/osteomyelitis Source of Information: patient, old records History of Present Illness: This is a 77-year-old man with a history of hypertension, prediabetes, ITP, status post splenectomy, BPH, status post C6 disc repair 38 years prior to admission, status post a fall 2 months prior to admission, resulting in a nasal laceration and loss of several front teeth, seen in the ER 2 days later with right rib, left elbow and neck pain, with a CT of the head, cervical spine and chest negative, seen again in the ER 5 days later with severe paraspinal neck pain and discharged on Oxycodone, Motrin and Flexeril, admitted for observation 6 days later because of an altered mental status felt to be secondary to medications, with a negative chest x-ray and CT of the head, seen again in the emergency room 6 days later with right ankle pain after another fall, found to have a minimally displaced oblique fracture of the distal fibula, managed conservatively, admitted today after he was referred to the emergency room by his primary care physician after a CT of the head and cervical spine 3 days prior to admission, done because of persistent neck pain and several weeks of fevers, revealed findings concerning for discitis/osteomyelitis C5-C7 with a paravertebral and possibly epidural phlegmon or abscess. On admission he was afebrile. Laboratory data revealed a white blood cell count of 10,000, ESR 55, BUN/creatinine 20 and 0.9, with normal liver enzymes. He was given Vancomycin and Ceftriaxone in the emergency room. At present he does not offer any complaints. He did have dental work performed today with root canal and a bridge placed. Allergies/Medications Allergies: Coded Allergies: No Known Allergies (09/26/17) Home Med List: Atorvastatin Calcium 20 MG TABLET 1 TAB PO DAILY HLD (Reported) Finasteride 5 MG TABLET 1 TAB PO DAILY BPH (Reported) Meloxicam 15 MG TABLET 1 TAB PO DAILY PAIN (Reported) Metformin HCl 500 MG TABLET 1 TAB PO DAILY PRE dm (Reported) Paroxetine HCl 37.5 MG TAB.ER.24H 1 TAB PO DAILY DEPRESSION (Reported) Ramipril 2.5 MG CAPSULE 1 CAP PO DAILY HTN (Reported) Trazodone HCl 50 MG TABLET 1 TAB PO QPM SLEEP (Reported) Past History Travel History Traveled to [place] past 21 day No Medical History Neurological: NONE EENT: NONE Cardiovascular: hypertension, hyperlipidemia Respiratory: NONE Gastrointestinal: NONE Hepatic: NONE Renal: benign prost hyperplasia Musculoskeletal: NONE Psychiatric: depression, insomnia Endocrine: diabetes Blood Disorders: ITP Cancer(s): NONE 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 Ambulation: independent IADLs Independent: shopping, housework, finances, food prep, telephone, transportation , medication admin. Review of Systems Review of Systems All Other Systems: Reviewed and Negative Exam & Diagnostic Data Last 24 Hrs of Vital Signs/I&O Vital Signs Date Time Temp Pulse Resp B/P B/P Pulse O2 O2 Flow FiO2 Mean Ox Delivery Rate 11/12 1659 98.8 85 18 136/70 95 Room Air 11/12 1418 98.6 125/62 96 Room Air 11/12 1235 98.6 103 18 114/76 95 Room Air Intake & Output 11/12 1600 11/12 0800 11/12 0000 Intake Total 0 Output Total Balance 0 Intake, Oral 0 Patient 190 lb Weight Weight Reported by Patient Measurement Method Physical Exam Other Physical Findings: He is awake and alert in no acute distress. He is afebrile. Skin reveals no rash. HEENT exam is negative. Neck is supple with no adenopathy; mild paraspinal tenderness. Lungs are clear. Heart regular rhythm with no murmur. Abdomen is soft, nontender with positive bowel sounds. Back no CVA tenderness. Extremities no cyanosis, clubbing or edema. Neuro is without focality. Last 24 Hours of Lab Results: Laboratory Tests 11/12 1308 Chemistry Sodium (137 - 145 mmol/L) 140 Potassium (3.5 - 5.1 mmol/L) 5.4 H Chloride (98 - 107 mmol/L) 100 Carbon Dioxide (22 - 30 mmol/L) 30 Anion Gap (5 - 16) 10 BUN (9 - 20 mg/dL) 20 Creatinine (0.7 - 1.2 mg/dL) 0.9 Estimated GFR (>60 ml/min) > 60 BUN/Creatinine Ratio (7 - 25 %) 22.2 Glucose (65 - 99 mg/dL) 108 H Lactic Acid (0.7 - 2.1 mmol/L) 1.2 Calcium (8.4 - 10.2 mg/dL) 9.7 Total Bilirubin (0.2 - 1.3 mg/dL) 0.5 AST (17 - 59 U/L) 17 ALT (21 - 72 U/L) 20 L Alkaline Phosphatase (< 127 U/L) 106 Troponin I (<0.11 ng/ml) < 0.01 C-Reactive Prot, Quant (<1.0 mg/dL) 3.2 H Total Protein (6.3 - 8.2 g/dL) 6.8 Albumin (3.5 - 5.0 g/dL) 3.6 Globulin (1.9 - 4.2 gm/dL) 3.2 Albumin/Globulin Ratio (1.1 - 2.2 %) 1.1 Hematology CBC w Diff NO MAN DIFF REQ WBC (4.8 - 10.8 /CUMM) 10.1 RBC (4.70 - 6.10 /CUMM) 4.39 L Hgb (14.0 - 18.0 G/DL) 14.3 Hct (42 - 52 %) 41.3 L MCV (80.0 - 94.0 FL) 94.1 H MCH (27.0 - 31.0 PG) 32.5 H MCHC (33.0 - 37.0 G/DL) 34.6 RDW (11.5 - 14.5 %) 13.2 Plt Count (130 - 400 /CUMM) 333 MPV (7.4 - 10.4 FL) 7.8 Gran % (42.2 - 75.2 %) 66.3 Lymphocytes % (20.5 - 51.1 %) 21.3 Monocytes % (1.7 - 9.3 %) 10.7 H Eosinophils % (0 - 5 %) 0.5 Basophils % (0.0 - 2.0 %) 1.2 Absolute Granulocytes (1.4 - 6.5 /CUMM) 6.7 H Absolute Lymphocytes (1.2 - 3.4 /CUMM) 2.2 Absolute Monocytes (0.10 - 0.60 /CUMM) 1.1 H Absolute Eosinophils (0.0 - 0.7 /CUMM) 0.1 Absolute Basophils (0.0 - 0.2 /CUMM) 0.1 ESR Westergren (0 - 10 MM) 55 H Last 24 Hours of Stevie Results: Blood cultures 2 November 12 pending Diagnostic Data Recent Imaging Findings: MRI of the cervical spine pending Assessment/Plan Assessment/Plan Impression: This is a 77-year-old man with a history of ITP, status post splenectomy, status post C6 disc repair 38 years prior to admission, status post a fall 2 months prior to admission, resulting in a nasal laceration and loss of several front teeth, with persistent neck pain over the past 2 months and fevers over the past 3 weeks, admitted today after a CT of the head and cervical spine 3 days prior to admission revealed evidence of discitis/osteomyelitis C5-C7 with a paravertebral and possibly epidural phlegmon or abscess. The CT findings are suggestive of discitis/osteomyelitis, with a possible epidural phlegmon or abscess, and he is scheduled for an MRI of the cervical spine later today. The etiology of this is unclear and is presumed secondary to the recent trauma, with perhaps a break in the skin resulting in bacteremia and seeding of the spine, or direct spread posteriorly from an odontogenic or oropharyngeal process. Endocarditis could also be considered, particularly with his dental trauma. He does not appear to have any focality on neurologic exam but will await the results of the MRI to rule out cord compression. Based on the MRI results a CT-guided aspiration of the disc space/vertebral body will need to be considered to identify the pathogen/pathogens responsible for his presumed infection. As he is stable, with no fever or leukocytosis, feel that he can be followed off antibiotics pending further evaluation. Suggestion: 1. Await MRI of the cervical spine 2. Further evaluation, for example CT-guided aspiration of the disc space/ vertebral body by IR, based on above 3. Echocardiogram 4. Follow-up blood cultures 5. Follow off antibiotics pending above Consult Acknowledgment - Thank you for your consult request.
[2017-11-12 20:38] VITALS: BP 124/88
[2017-11-12 22:13] VITALS: BP 124/80
[2017-11-13 06:23] VITALS: BP 130/66
--- NOTE | 2017-11-13 06:39 | PN- Housestaff ---
Alan BACK,Stacey 11/13/17 0639: Subjective Follow-up For: Osteomyelitis of the cervical spine Complaints: no complaints Tele-Events Since Last Visit: Normal sinus rhythm with a heart rate of 60 Subjective: Patient seen and examined at bedside patient was lying in his bed comfortably. He denies dizziness, neck pain, weakness, incontinence to bowel or bladder. Review of Systems Constitutional: Reports: no symptoms. Objective Last 24 Hrs of Vital Signs/I&O Vital Signs Date Time Temp Pulse Resp B/P B/P Pulse O2 O2 Flow FiO2 Mean Ox Delivery Rate 11/13 0800 97 Room Air 11/13 0623 97.6 76 18 130/66 95 Room Air 11/12 2213 99.2 84 16 124/80 94 11/12 2038 99.3 86 18 124/88 96 11/12 1923 99.3 88 20 135/63 94 Room Air 11/12 1659 98.8 85 18 136/70 95 Room Air Intake & Output 11/13 1600 11/13 0800 11/13 0000 Intake Total 400 250 Output Total 125 Balance 400 125 Intake, IV 400 250 Intake, Oral 0 Output, Urine 125 Patient 186 lb Weight Weight Bed scale Measurement Method Physical Exam General Appearance: Alert, Oriented X3, Cooperative, No Acute Distress HEENT: Atraumatic, PERRLA, mild restriction upon neck rotation Cardiovascular: Regular Rate, Normal S1, Normal S2, No Murmurs Lungs: Clear to Auscultation Abdomen: Soft, No Tenderness, No Hepatospenomegaly Neurological: Normal Speech, Strength at 5/5 X4 Ext, Normal Tone, Sensation Intact Current Medications: Current Medications Sig/Laura Start time Last Medication Dose Route Stop Time Status Admin Acetaminophen 650 MG Q6P PRN 11/12 1630 AC PO Atorvastatin Calcium 20 MG DAILY 11/13 0900 AC PO Dextrose/Sodium 1,000 ML Q20H 11/13 0645 AC 11/13 Chloride IV 11/14 0244 0658 Fentanyl Citrate 0 .STK-MED ONE 11/13 1459 DC .ROUTE Fentanyl Citrate 0 .STK-MED ONE 11/13 1331 DC .ROUTE Finasteride 5 MG DAILY 11/13 0900 AC PO Insulin Aspart 0 TIDAC 11/13 0800 CAN SC Insulin Human Regular 0 Q6 11/13 0637 AC 11/13 SC 0658 Lidocaine 1 ML .STK-MED ONE 11/13 1534 DC ID 11/13 1535 Lidocaine 1 PAT Q24H 11/12 1630 AC 11/12 EXT 1657 Lisinopril 10 MG DAILY 11/13 0900 AC PO Melatonin 5 MG ONCE ONE 11/125 DC 11/12 PO 11/13 2115 2228 Midazolam HCl 0 .STK-MED ONE 11/13 1331 DC .ROUTE Morphine Sulfate 2 MG Q4P PRN 11/12 1630 AC 11/13 IV 0624 Oxycodone/ 1 TAB Q6P PRN 11/12 1630 AC 11/12 Acetaminophen PO 2226 Paroxetine HCl 20 MG DAILY 11/13 0900 AC PO Last 24 Hrs of Lab/Stevie Results Last 24 Hrs of Labs/Mics: Laboratory Tests 11/13/17 1445: Fluid WBC Pending, Fld Total RBCs Counted Pending 11/13/17 1445: Fluid Glucose Pending, Fluid Total Protein Pending 11/13/17 0929: PT 12.6 H, INR 1.15 11/13/17 0622: Anion Gap 13, Estimated GFR > 60, BUN/Creatinine Ratio 27.5 H, CBC w Diff NO MAN DIFF REQ, RBC 4.29 L, MCV 95.5 H, MCH 32.1 H, MCHC 33.6, RDW 13.7, MPV 8.0, Gran % 62.6, Lymphocytes % 23.1, Monocytes % 12.1 H, Eosinophils % 1.8, Basophils % 0.4, Absolute Granulocytes 6.1, Absolute Lymphocytes 2.2, Absolute Monocytes 1.2 H, Absolute Eosinophils 0.2, Absolute Basophils 0 11/12/172129: Urine Opiates Screen < 100, Methadone Screen 42, Barbiturate Screen < 60, Ur Phencyclidine Scrn < 6.00, Amphetamines Screen < 100, U Benzodiazepines Scrn < 85, Urine Cocaine Screen < 50, Urine Cannabis Screen 79.40 H, Urine Color YEL, Urine Clarity CLEAR, Urine pH 7.5, Ur Specific [place] 1.020, Urine Protein NEG, Urine Ketones NEG, Urine Nitrite NEG, Urine Bilirubin NEG, Urine Urobilinogen 0.2, Ur Leukocyte Esterase NEG, Ur Microscopic EXAM NOT REQUIRED, Urine Hemoglobin NEG, Urine Glucose NEG 11/12/172044: Lactic Acid 1.0 Microbiology 11/13 1500 BODY FLUID: Body Fluid Culture - RECD 11/13 1500 BODY FLUID: Gram Stain - RECD 11/13 1500 BODY FLUID: AFB Culture with PCR Identification - RECD 11/13 1500 BODY FLUID: AFB Smear Concentration - RECD 11/13 1500 BODY FLUID: Fungal Culture - RECD 11/13 1500 BODY FLUID: AFB Culture with PCR Identification - RECD 11/13 1500 BODY FLUID: AFB Smear Concentration - RECD 11/13 1445 BODY FLUID: Fungal Culture - RECD 11/13 1445 BODY FLUID: Body Fluid Culture - RECD 11/13 1445 BODY FLUID: Gram Stain - RECD Assessment/Plan Assessment: 77-year-old male with past medical history significant for hypertension, BPH, hyperlipidemia, ITP status post splenectomy 2005, anxiety, depression, disc repair at the level of C6 in 1979, who was sent in by his PCP Dr. Thomason for further evaluation of cervical spine osteomyelitis. Assessment and plan Cervical spine osteomyelitis/discitis-patient got 1 dose of vancomycin and ceftriaxone in ED. For now we are following him off antibiotics. Awaiting blood cultures. Patient will be going today for IR guided biopsy to help us with the micro. We will follow cell count, culture. Meanwhile we will get echocardiogram. Patient is n.p.o. for the procedure. Pain management with morphine, Percocet, Lidoderm patch. We will continue his home medication finasteride, atorvastatin, lisinopril, paroxetine. Problem List: 1. Osteomyelitis Pain Ratin Pain Location: Neck Pain Goal: Remain pain free Pain Plan: Morphine, Percocet Tomorrow's Labs & Rationales: C BC, BP Niall BACK,Jaron 11/13/17 1534: Attending MD Review Statement Attending Statement Attending MD Statement: examined this patient, discuss w/resident/PA/BOILERMAKER PIPE FITTER, agreed w/resident/PA/BOILERMAKER PIPE FITTER, reviewed EMR data (avail) Attending Assessment/Plan: Patient seen and examined at bedside. Agree with resident assessment and plan. Cervical spinal osteomyelitis, awaiting IR-guided biopsy, will follow neurosurgery, ID, ENT, IR recommendations. Telemetry can be discontinued and patient can be transferred to general medicine floor. Continue current management.
[2017-11-13 07:45] LABS: ABSOLUTE BASOPHIL COUNT 0 /CUMM (0.0-0.2); ABSOLUTE EOSINOPHIL COUNT 0.2 /CUMM (0.0-0.7); ABSOLUTE GRANULOCYTE CT 6.1 /CUMM (1.4-6.5); ABSOLUTE LYMPH COUNT 2.2 /CUMM (1.2-3.4); ABSOLUTE MONOCYTE COUNT 1.2 /CUMM (0.10-0.60); BASOPHIL % 0.4 % (0.0-2.0); EOSINOPHIL % 1.8 % (0-5); GRANULOCYTE % 62.6 % (42.2-75.2); MEAN CORPUSCULAR HGB 32.1 PG (27.0-31.0); MEAN CORPUSCULAR HGB CONC 33.6 G/DL (33.0-37.0); MEAN CORPUSCULAR VOLUME 95.5 FL (80.0-94.0); PLATELET COUNT 343 /CUMM (130-400); RBC DISTRIBUTION WIDTH 13.7 % (11.5-14.5); RED BLOOD CELL CT 4.29 /CUMM (4.70-6.10); WHITE BLOOD CELL COUNT 9.7 /CUMM (4.8-10.8)
--- NOTE | 2017-11-13 08:35 | PN- Neurosurgical ---
Subjective Subjective: No acute overnight events reported. Pt denies difficulty breathing, speaking or swallowing. Denies any new neurological deficits. Was evaluated by ENT this am , no airway or esophageal compromise per Dr. Reina, no biopsy performed. Objective Vital Signs and I&Os GVital Signs Date Time Temp Pulse Resp B/P B/P Pulse O2 O2 Flow FiO2 Mean Ox Delivery Rate 11/13 0623 97.6 76 18 130/66 95 Room Air 11/12 2213 99.2 84 16 124/80 94 11/12 2038 99.3 86 18 124/88 96 11/12 1923 99.3 88 20 135/63 94 Room Air 11/12 1659 98.8 85 18 136/70 95 Room Air 11/12 1418 98.6 125/62 96 Room Air 11/12 1235 98.6 103 18 114/76 95 Room Air Intake & Output 11/13 1600 11/13 0800 11/13 0000 11/12 1600 11/12 0800 11/12 0000 Intake Total 250 0 Output Total 125 Balance 125 0 Intake, IV 250 Intake, Oral 0 Output, Urine 125 Patient 186 lb 190 lb Weight Weight Bed scale Reported by Patient Measurement Method Physical Exam: General: Alert and oriented x3, no acute distress CN assessment intact, voices strong, no tracheal deviation, swallow intact Cardiac: R RR, s1s2 Pulm: Non-labored respiratory effort Abd: non-tender, non-distended Extremiteis: motor 5/5 upper and lower extremities bialterally, bialteral calves soft and non-tender. Assessment/Plan Assessment/Plan This is a 77 year old male, hospital day 1 with imaging suggestive of osteomyelitis, discitis of C4/5, C5/6, C6/7 with pre and paravertebral enhancement and anterior longitudinal epidural enhancement from C1 to C7 c/w engorged, prominent venous plexus vs. granulation/phlegmon superimposed on multilevel spondylosis and DDD, kyphosis, and mild to moderate canal stenosis with mild ventral thecal sac compression without any cord signal change. Was seen by ENT earlier this am, no airway or esphageal compromise. Per Dr. Gomez previously made recommendations, would continue to monitor ESR , wbc and clinical exam and defer surgical intervention unless there ia a failure to respond to medical tx, worsening neuro exam from progressive epidural disease/cord compromise, or progressive spinal deformity. Recommend IR guided soft tissue biopsy for ID purposes if necessary. If he remains stable , would consider repeat early MRI in 7-10 days, sooner for any change in clinical status.
--- NOTE | 2017-11-13 08:38 | Cons- Ear,Nose&Throat ---
General Information and HPI Consulting Request Date of Consult: 11/13/17 Requested By: Jaron Tierney MD Reason for Consult: Evaluate upper airway and cervical spine Source of Information: patient, PCP Exam Limitations: no limitations History of Present Illness: History of having several falls over past few months. Has developed neck pain primarily posterior neck radiating into his shoulders. No dysphagia, but relates slight hoarseness of voice. No airway symptoims Not ill, but recent chills, no fever CT cervical spine ordered by his LMD Dr. Gomez showed evidence of cervical spine osteomyelitis and degeneration at C5-C6 MRI of cerival spine suggests similar findings. Has been evaluated by neurosurgery and ID and considering biopsy vs sampling of the area for culture. Prior history of cervical spine surgery 38 years ago at C5-C6 Allergies/Medications Allergies: Coded Allergies: No Known Allergies (09/26/17) Home Med List: Atorvastatin Calcium 20 MG TABLET 1 TAB PO DAILY HLD (Reported) Finasteride 5 MG TABLET 1 TAB PO DAILY BPH (Reported) Meloxicam 15 MG TABLET 1 TAB PO DAILY PAIN (Reported) Metformin HCl 500 MG TABLET 1 TAB PO DAILY PRE dm (Reported) Paroxetine HCl 37.5 MG TAB.ER.24H 1 TAB PO DAILY DEPRESSION (Reported) Ramipril 2.5 MG CAPSULE 1 CAP PO DAILY HTN (Reported) Trazodone HCl 50 MG TABLET 1 TAB PO QPM SLEEP (Reported) Current Medications: Current Medications Sig/Laura Start time Last Medication Dose Route Stop Time Status Admin Acetaminophen 650 MG Q6P PRN 11/12 1630 AC PO Atorvastatin Calcium 20 MG DAILY 11/13 09 AC PO Ceftriaxone Sodium 0 .STK-MED ONE 11/12 1319 DC .ROUTE Ceftriaxone Sodium 2,000 MG ONCE ONE 11/12 1315 DC 11/12 IV 11/12 1316 1332 Dextrose/Sodium 1,000 ML Q20H 11/13 0645 AC 11/13 Chloride IV 11/14 0244 0658 Finasteride 5 MG DAILY 11/13 0900 AC PO Insulin Aspart 0 TIDAC 11/13 0800 CAN SC Insulin Human Regular 0 Q6 11/13 0637 AC 11/13 SC 0658 Lidocaine 1 PAT Q24H 11/12 1630 AC 11/12 EXT 1657 Lisinopril 10 MG DAILY 11/13 0900 AC PO Melatonin 5 MG ONCE ONE 11/12 2115 DC 11/12 PO 11/12 2116 2228 Morphine Sulfate 2 MG Q4P PRN 11/12 1630 AC 11/13 IV 0624 Oxycodone/ 1 TAB Q6P PRN 11/12 1630 AC 11/12 Acetaminophen PO 2226 Paroxetine HCl 20 MG DAILY 11/13 0900 AC PO Vancomycin HCl 0 .STK-MED ONE 11/12 1319 DC .ROUTE Vancomycin HCl 1,000 MG ONCE ONE 11/12 1315 DC 11/12 Sodium Chloride 250 ML IV 11/12 1414 1406 Past History Medical History Neurological: NONE EENT: NONE Cardiovascular: hypertension, hyperlipidemia Respiratory: NONE Gastrointestinal: NONE Hepatic: NONE Renal: benign prost hyperplasia Musculoskeletal: NONE Psychiatric: depression, insomnia Endocrine: diabetes Blood Disorders: ITP Cancer(s): NONE HEAD GOLF PROFESSIONAL/Reproductive: NONE Surgical History Pertinent Surgical History: appendectomy, splenectomy d/t ITP in 2005 cervical neck surgery for herniated disc Psychosocial History Where Do You Live? Home Services at Home: None Smoking Status: Former Smoker Functional Ability ADLs Independent: dressing, eating, toileting, bathing. Ambulation: independent IADLs Independent: shopping, housework, finances, food prep, telephone, transportation , medication admin. Exam & Diagnostic Data Vital Signs and I&O Vital Signs Date Time Temp Pulse Resp B/P B/P Pulse O2 O2 Flow FiO2 Mean Ox Delivery Rate 11/13 622 97.6 76 18 130/66 95 Room Air 11/12 2213 99.2 84 16 124/80 94 11/12 2038 99.3 86 18 124/88 96 11/12 1923 99.3 88 20 135/63 94 Room Air 11/12 1659 98.8 85 18 136/70 95 Room Air 11/12 1418 98.6 125/62 96 Room Air 11/12 1235 98.6 103 18 114/76 95 Room Air Intake & Output 11/13 1600 11/13 0811/13 0000 11/12 1600 11/12 0800 11/12 0000 Intake Total 250 0 Output Total 125 Balance 125 0 Intake, IV 250 Intake, Oral 0 Output, Urine 125 Patient 186 lb 190 lb Weight Weight Bed scale Reported by Patient Measurement Method Exam at the bedside Awake and alert and co-operative voice sounds normal quality and clarity Ear: normal, AU Nose: clear Throat unremarkable Neck: slight guarding, but mobile Fiberoptic nasopharyngolaryngoscopy performed anesthesia: topical xylocaine findings: unremarkable upper airway with specific attention to the posterior pharyngeal wall and laryns MRI reviewed with the resident staff evidence of degeneration and ?inflammatory process at C4- C6 poaterior pharyngeal wall is not displaced Assessment/Plan Assessment/Plan Impression: cervical spine inflammatory and degenerative process normal upper airway Recommend: defer to ID and neurosurgery as to further evaluation and treatment IR for consultation of accessing the prevertebral area if biospy or cultures are required Open access to the prevertebral area could be performed via anterior apperoach to the spine Consult Acknowledgment - Thank you for your consult request.
[2017-11-13 09:57] LABS: PT 12.6 SEC (9.4-12.5)
--- NOTE | 2017-11-13 11:50 | PN- Infect Dx ---
Subjective Subjective: Afebrile. He complains of mild neck pain. Objective Last 24 Hrs of Vital Signs/I&O Vital Signs Date Time Temp Pulse Resp B/P B/P Pulse O2 O2 Flow FiO2 Mean Ox Delivery Rate 11/13 0623 97.6 76 18 130/66 95 Room Air 11/12 2213 99.2 84 16 124/80 94 11/12 2038 99.3 86 18 124/88 96 11/12 1923 99.3 88 20 135/63 94 Room Air 11/12 1659 98.8 85 18 136/70 95 Room Air 11/12 1418 98.6 125/62 96 Room Air 11/12 1235 98.6 103 18 114/76 95 Room Air Intake & Output 11/13 1600 11/13 0800 11/13 0000 Intake Total 250 Output Total 125 Balance 125 Intake, IV 250 Output, Urine 125 Patient 186 lb Weight Weight Bed scale Measurement Method Physical Exam Other Physical Findings: He appears comfortable in no acute distress HEENT negative Neck is supple with no adenopathy; mild tenderness over the paraspinal muscles Lungs are clear Heart regular rhythm with no murmur Extremities no cyanosis, clubbing or edema; right ankle with no inflammation Results Last 24 Hours of Lab Results: Laboratory Tests 11/13 11/13 0929 0622 Chemistry Sodium (137 - 145 mmol/L) 141 Potassium (3.5 - 5.1 mmol/L) 5.1 Chloride (98 - 107 mmol/L) 102 Carbon Dioxide (22 - 30 mmol/L) 26 Anion Gap (5 - 16) 13 BUN (9 - 20 mg/dL) 22 H Creatinine (0.7 - 1.2 mg/dL) 0.8 Estimated GFR (>60 ml/min) > 60 BUN/Creatinine Ratio (7 - 25 %) 27.5 H Coagulation PT (9.4 - 12.5 SEC) 12.6 H INR (0.90 - 1.17) 1.15 Hematology CBC w Diff NO MAN DIFF REQ WBC (4.8 - 10.8 /CUMM) 9.7 RBC (4.70 - 6.10 /CUMM) 4.29 L Hgb (14.0 - 18.0 G/DL) 13.8 L Hct (42 - 52 %) 41.0 L MCV (80.0 - 94.0 FL) 95.5 H MCH (27.0 - 31.0 PG) 32.1 H MCHC (33.0 - 37.0 G/DL) 33.6 RDW (11.5 - 14.5 %) 13.7 Plt Count (130 - 400 /CUMM) 343 MPV (7.4 - 10.4 FL) 8.0 Gran % (42.2 - 75.2 %) 62.6 Lymphocytes % (20.5 - 51.1 %) 23.1 Monocytes % (1.7 - 9.3 %) 12.1 H Eosinophils % (0 - 5 %) 1.8 Basophils % (0.0 - 2.0 %) 0.4 Absolute Granulocytes (1.4 - 6.5 /CUMM) 6.1 Absolute Lymphocytes (1.2 - 3.4 /CUMM) 2.2 Absolute Monocytes (0.10 - 0.60 /CUMM) 1.2 H Absolute Eosinophils (0.0 - 0.7 /CUMM) 0.2 Absolute Basophils (0.0 - 0.2 /CUMM) 0 11/12 11/12 2130 2045 Chemistry Lactic Acid (0.7 - 2.1 mmol/L) 1.0 Toxicology Urine Opiates Screen (>2000 NG/ML) < 100 Methadone Screen (>300 NG/ML) 42 Barbiturate Screen (>200 NG/ML) < 60 Ur Phencyclidine Scrn (>25 NG/ML) < 6.00 Amphetamines Screen (>1000 NG/ML) < 100 U Benzodiazepines Scrn (>200 NG/ML) < 85 Urine Cocaine Screen (>300 NG/ML) < 50 Urine Cannabis Screen (>50 NG/ML) 79.40 H Urines Urine Color (YEL,AMB,STR) YEL Urine Clarity (CLEAR) CLEAR Urine pH (5.0 - 8.0) 7.5 Ur Specific [place] (1.001 - 1.035) 1.020 Urine Protein (NEG,<30 MG/DL) NEG Urine Ketones (NEG) NEG Urine Nitrite (NEG) NEG Urine Bilirubin (NEG) NEG Urine Urobilinogen (0.1 - 1.0 EU/dl) 0.2 Ur Leukocyte Esterase (NEG) NEG Ur Microscopic EXAM NOT REQUIRED Urine Hemoglobin (NEG) NEG Urine Glucose (N MG/DL) NEG 11/12 1308 Chemistry Sodium (137 - 145 mmol/L) 140 Potassium (3.5 - 5.1 mmol/L) 5.4 H Chloride (98 - 107 mmol/L) 100 Carbon Dioxide (22 - 30 mmol/L) 30 Anion Gap (5 - 16) 10 BUN (9 - 20 mg/dL) 20 Creatinine (0.7 - 1.2 mg/dL) 0.9 Estimated GFR (>60 ml/min) > 60 BUN/Creatinine Ratio (7 - 25 %) 22.2 Glucose (65 - 99 mg/dL) 108 H Lactic Acid (0.7 - 2.1 mmol/L) 1.2 Calcium (8.4 - 10.2 mg/dL) 9.7 Total Bilirubin (0.2 - 1.3 mg/dL) 0.5 AST (17 - 59 U/L) 17 ALT (21 - 72 U/L) 20 L Alkaline Phosphatase (< 127 U/L) 106 Troponin I (<0.11 ng/ml) < 0.01 C-Reactive Prot, Quant (<1.0 mg/dL) 3.2 H Total Protein (6.3 - 8.2 g/dL) 6.8 Albumin (3.5 - 5.0 g/dL) 3.6 Globulin (1.9 - 4.2 gm/dL) 3.2 Albumin/Globulin Ratio (1.1 - 2.2 %) 1.1 Hematology CBC w Diff NO MAN DIFF REQ WBC (4.8 - 10.8 /CUMM) 10.1 RBC (4.70 - 6.10 /CUMM) 4.39 L Hgb (14.0 - 18.0 G/DL) 14.3 Hct (42 - 52 %) 41.3 L MCV (80.0 - 94.0 FL) 94.1 H MCH (27.0 - 31.0 PG) 32.5 H MCHC (33.0 - 37.0 G/DL) 34.6 RDW (11.5 - 14.5 %) 13.2 Plt Count (130 - 400 /CUMM) 333 MPV (7.4 - 10.4 FL) 7.8 Gran % (42.2 - 75.2 %) 66.3 Lymphocytes % (20.5 - 51.1 %) 21.3 Monocytes % (1.7 - 9.3 %) 10.7 H Eosinophils % (0 - 5 %) 0.5 Basophils % (0.0 - 2.0 %) 1.2 Absolute Granulocytes (1.4 - 6.5 /CUMM) 6.7 H Absolute Lymphocytes (1.2 - 3.4 /CUMM) 2.2 Absolute Monocytes (0.10 - 0.60 /CUMM) 1.1 H Absolute Eosinophils (0.0 - 0.7 /CUMM) 0.1 Absolute Basophils (0.0 - 0.2 /CUMM) 0.1 ESR Westergren (0 - 10 MM) 55 H Last 24 Hours of Stevie Results: Blood cultures 2 November 12 negative Recent Imaging Studies: MRI of the cervical spine November 12 revealed osteomyelitis/discitis C5 through C7 and possibly involving the anterior aspect of C4-C5 associated with enhancing epidural phlegmon C4 through C7 resulting in flattening of the ventral cord and moderate central canal stenosis C5 through C7; an enhancing paravertebral retropharyngeal phlegmon at these levels with myositis is also noted; no discrete abscess Assessment/Plan ID Impression: Cervical osteomyelitis/discitis in the setting of recent trauma, which was the likely precipitating factor for this presumed infection, resulting in a, possibly transient, bacteremia with seeding of the cervical spine or perhaps related to a odontogenic/oropharyngeal process with direct extension to the prevertebral space and, subsequently, the spine. He remains afebrile with a normal white blood cell count since admission, and his blood cultures are so far negative. He is scheduled for an aspiration of the disc space/vertebral body by IR later today. Suggestion: 1. Await CT-guided aspiration of the cervical disc space/vertebral body ( discussed with IR) 2. Follow-up blood cultures 3. Follow-up Echocardiogram 4. Continue to follow off antibiotics pending above
[2017-11-13 16:44] VITALS: BP 140/66
--- NOTE | 2017-11-13 18:31 | CT SCAN REPORT ---
PROCEDURE: CT GUIDED NEEDLE ASPIRATION OF THE C5-C6 AND C6-C7 DISCS CLINICAL INFORMATION: 77-year-old male patient status post 3 falls in the past month, now presenting with fever and neck pain. Imaging studies showed destructive changes of the vertebral endplates at the C5-C6 and C6-C7 levels with associated enhancing inflammatory changes in the soft tissues consistent with infectious discitis and osteomyelitis. COMPARISON: CT of the cervical spine dated 11/09/2017, MRI of the cervical spine dated 11/12/2017. FACILITY MAINTENANCE TECHNICIAN: Mahin Carl M.D. DESCRIPTION: The patient was referred by Dr. Dannie Yates of infectious disease. Informed consent was obtained from the patient prior to the procedure. During this process, the procedure and potential alternatives was explained, along with the intended outcome and benefits. The risks of the procedure, as well as the risk of not doing the procedure, were discussed. The patient was given the opportunity to ask questions regarding the procedure and appeared competent to make medical decisions. A signed consent form which documents this discussion was placed in the medical record. The patient's prior imaging studies were reviewed. The patient was brought to the CT suite and a final timeout procedure was performed. The patient was placed in the CT gantry in the supine position. IV conscious sedation was induced under my direction and supervision using Versed and fentanyl. The patient was continuously monitored by an independent, registered nurse. At no time was there evidence of instability. [employer] films were obtained through the lower cervical spine with a grid overlying the left neck for localization of the C5-C6 and C6-C7 discs. The overlying soft tissues were sterilely prepped and draped. Maximum sterile barrier technique was maintained throughout the procedure. Following administration of local anesthesia using 1% lidocaine, a 20-gauge Quincke tip needle was introduced into the C5-C6 disc space via a anterolateral approach through a window between the thyroid cartilage and left internal carotid artery. Approximately 8 mL of bloody fluid was aspirated from the disc and paravertebral soft tissues. Using the same window, the needle was then directed into the C6-C7 disc under CT fluoroscopic guidance. Proximally 4 mL of bloody fluid was aspirated from the disc spaces and paravertebral soft tissues. Both specimens were sent for culture and sensitivity. The fluid from the C5-C6 level was also sent for cell count with differentiation. Scans were obtained through the lower cervical level after removal of needles and no hematoma or other complication was detected. DLP: 457.5 mGy-cm SEDATION TIME: 45 minutes SEDATION MEDICATIONS: 2 mg Versed, 100 mcg fentanyl COMPLICATIONS: None IMPRESSION: CT-guided aspiration performed of the C5-C6 and C6-C7 discs and the paravertebral soft tissues without evidence of complications. Bloody fluid was aspirated at both levels and sent for analysis.
[2017-11-13 22:14] VITALS: BP 98/60
[2017-11-13 22:54] VITALS: BP 112/60
[2017-11-14 06:36] VITALS: BP 112/60
--- NOTE | 2017-11-14 07:05 | PN- Housestaff ---
Alan BACK,Stacey 11/14/17 0704: Subjective Follow-up For: Cervical spine osteomyelitis Complaints: no complaints Tele-Events Since Last Visit: Normal sinus rhythm with a heart rate of 80s Subjective: Patient seen and examined at bedside no overnight events. Patient complains of mild neck pain. He denies vision changes, headache, fever, chills, weakness, bowel or bladder incontinence. Review of Systems Constitutional: Reports: no symptoms. Objective Last 24 Hrs of Vital Signs/I&O Vital Signs Date Time Temp Pulse Resp B/P B/P Pulse O2 O2 Flow FiO2 Mean Ox Delivery Rate 11/14 1011 82 112/60 11/14 0636 98.5 74 18 112/60 94 Room Air 11/13 2254 112/60 11/13 2214 98.0 76 18 98/60 92 11/13 1651 65 140/66 11/13 1644 98.5 65 16 140/66 95 Room Air Intake & Output 11/14 1600 11/14 0800 11/14 0000 Intake Total 200 200 Output Total Balance 200 200 Intake, Oral 200 200 Patient 185 lb Weight Physical Exam General Appearance: Alert, Oriented X3, Cooperative, No Acute Distress Cardiovascular: Regular Rate, Normal S1, Normal S2, No Murmurs Lungs: Clear to Auscultation Abdomen: Normal Bowel Sounds, Soft, No Tenderness, No Hepatospenomegaly Neurological: Normal Speech, Strength at 5/5 X4 Ext, Normal Tone, Sensation Intact Extremities: No Edema Current Medications: Current Medications Sig/Laura Start time Last Medication Dose Route Stop Time Status Admin Acetaminophen 650 MG .STK-MED ONE 11/13 1647 DC PO 11/13 1648 Acetaminophen 650 MG Q6P PRN 11/12 1630 AC 11/13 PO 1652 Atorvastatin Calcium 20 MG DAILY 11/13 0900 AC 11/14 PO 1012 Dextrose/Sodium 1,000 ML Q20H 11/13 0645 DC 11/13 Chloride IV 11/14 0244 0658 Docusate Sodium 100 MG BID 11/14 0900 AC 11/14 PO 1012 Fentanyl Citrate 0 .STK-MED ONE 11/13 1459 DC .ROUTE Fentanyl Citrate 0 .STK-MED ONE 11/13 1331 DC .ROUTE Finasteride 5 MG DAILY 11/13 0900 DC PO Insulin Aspart 0 TIDAC/HS 11/13 1700 AC SC Insulin Human Regular 0 Q6 11/13 0637 DC 11/13 SC 0658 Lidocaine 1 ML .STK-MED ONE 11/13 1534 DC ID 11/13 1535 Lidocaine 1 PAT Q24H 11/12 1630 11/13 EXT 1652 Lisinopril 10 MG DAILY 11/13 0900 AC 11/14 PO 1011 Melatonin 5 MG ONCE ONE 11/13 2230 DC 11/13 PO 11/13 2230 223 Midazolam HCl 0 .STK-MED ONE 11/13 1331 DC .ROUTE Morphine Sulfate 2 MG Q4P PRN 11/12 1630 AC 11/13 IV 0624 Oxycodone/ 1 TAB Q6P PRN 11/12 1630 AC 11/14 Acetaminophen PO 0757 Paroxetine HCl 20 MG DAILY 11/13 0900 AC 11/14 PO 1012 Polyethylene Glycol 17 GM DAILY 11/14 0900 AC 11/14 PO 1010 Last 24 Hrs of Lab/Stevie Results Last 24 Hrs of Labs/Mics: Laboratory Tests 11/14/17 0612: Anion Gap 10, Estimated GFR > 60, BUN/Creatinine Ratio 23.3, CBC w Diff NO MAN DIFF REQ, RBC 4.29 L, MCV 95.0 H, MCH 31.8 H, MCHC 33.4, RDW 13.2, MPV 7.9, Gran % 63.7, Lymphocytes % 24.4, Monocytes % 9.3, Eosinophils % 1.9, Basophils % 0.7, Absolute Granulocytes 5.8, Absolute Lymphocytes 2.2, Absolute Monocytes 0.8 H, Absolute Eosinophils 0.2, Absolute Basophils 0.1 11/13/17 1445: Lymphocytes 11, % Normal PMNs 85, Misc Hematology Test , Fluid Glucose 117, Fluid Total Protein 6.9 Microbiology 11/13 1500 BODY FLUID: Body Fluid Culture - RES 11/13 1500 BODY FLUID: Gram Stain - RES 11/13 1500 BODY FLUID: AFB Culture with PCR Identification - RES 11/13 1500 BODY FLUID: AFB Smear Concentration - RES 11/13 1500 BODY FLUID: Fungal Culture - RECD 11/13 1500 BODY FLUID: AFB Culture with PCR Identification - RES 11/13 1500 BODY FLUID: AFB Smear Concentration - RES 11/13 1445 BODY FLUID: Fungal Culture - RECD 11/13 1445 BODY FLUID: Body Fluid Culture - RES 11/13 144 BODY FLUID: Gram Stain - RES Assessment/Plan Assessment: 7-year-old male with past medical history significant for hypertension, BPH, hyperlipidemia, ITP status post splenectomy 2005, anxiety, depression, disc repair at the level of C6 in 1979, who was sent in by his PCP Dr. Thomason for further evaluation of cervical spine osteomyelitis. Assessment and plan * Cervical spine osteomyelitis/discitis-patient got 1 dose of vancomycin and ceftriaxone in ED. For now we are following him off antibiotics. Awaiting blood cultures. Patient got IR guided biopsy of the abscess. 8 mL of bloody fluid was sent for culture and cell count. We will hold off antibiotics until be get the final cultures. * Meanwhile we will get echocardiogram. * Patient is off telemetry. * Pain management with morphine, Percocet, Lidoderm patch. * We will continue his home medication finasteride, atorvastatin, lisinopril, paroxetine. Code-full code Diet-regular diet Problem List: 1. Osteomyelitis Pain Ratin Pain Location: neck Pain Goal: Remain pain free Pain Plan: tylenol Tomorrow's Labs & Rationales: cbc,bep Jaron Tierney MD 11/14/17 1221: Attending MD Review Statement Attending Statement Attending MD Statement: examined this patient, discuss w/resident/PA/GLOBAL CEO, agreed w/resident/PA/GLOBAL CEO, reviewed EMR data (avail) Attending Assessment/Plan: 77M PMH HTN, HLD, T2DM, neck surgery 40 years ago sent from his PCP's office after a CT of the neck obtained for chronic neck pain revealed discitis and possible osteomyelitis of C4-C6, with MRI confirming osteomyelitis. IR-guided biopsy done 11/13 without complication. Patient has no complaints today. Pain managed with Percocet. Afebrile, vitals stable, cultures negative. 1. Cervical spine acute osteomyelitis C4/C5/C6 with discitis Plan - Discontinue telemetry, transfer to general medicine - Follow cultures - Follow ID, neurosurgery, ENT recommendations - Continue Percocet q6h for pain control - Continue home medications - DVT PPx
[2017-11-14 08:09] LABS: ABSOLUTE BASOPHIL COUNT 0.1 /CUMM (0.0-0.2); ABSOLUTE EOSINOPHIL COUNT 0.2 /CUMM (0.0-0.7); ABSOLUTE GRANULOCYTE CT 5.8 /CUMM (1.4-6.5); ABSOLUTE LYMPH COUNT 2.2 /CUMM (1.2-3.4); ABSOLUTE MONOCYTE COUNT 0.8 /CUMM (0.10-0.60); BASOPHIL % 0.7 % (0.0-2.0); EOSINOPHIL % 1.9 % (0-5); GRANULOCYTE % 63.7 % (42.2-75.2); HEMATOCRIT 40.7 % (42-52); MEAN CORPUSCULAR HGB 31.8 PG (27.0-31.0); MEAN CORPUSCULAR HGB CONC 33.4 G/DL (33.0-37.0); MEAN PLATELET VOLUME 7.9 FL (7.4-10.4); PLATELET COUNT 368 /CUMM (130-400); RBC DISTRIBUTION WIDTH 13.2 % (11.5-14.5); RED BLOOD CELL CT 4.29 /CUMM (4.70-6.10)
--- NOTE | 2017-11-14 08:42 | Patient Discharge Instructions ---
See Addendum Discharge Instructions General Discharge Information You were seen/treated for: Cervical osteomyelitis Watch for these problems: In case of neck pain, weakness, fever, chills tingling sensation, incontinence to bowel and bladder please go to the nearest emergency room Special Instructions: Please follow-up with your primary care provider/neurosurgery within 1-2 weeks of discharge and let them know about your recent admission. Please take the antibiotics as prescribed. Diet Continue normal diet: Yes Activity Full Activity/No Limits: No Activity Self Limited: Yes Acute Coronary Syndrome Inclusion Criteria At DC or during hospital stay patient has or had the following: ACS DIAGNOSIS No Discharge Core Measures Meds if any: Prescribed or Continued at Discharge Meds if any: NOT Prescribed or Continued at Discharge Congestive Heart Failure Inclusion Criteria At DC or during hospital stay patient has or had the following: CHF DIAGNOSIS No Discharge Core Measures Meds if any: Prescribed or Continued at Discharge Meds if any: NOT Prescribed or Continued at Discharge Cerebrovascular accident Inclusion Criteria At DC or during hospital stay patient has or had the following: CVA/TIA Diagnosis No Discharge Core Measures Meds if any: Prescribed or Continued at Discharge Meds if any: NOT Prescribed or Continued at Discharge Venous thromboembolism Inclusion Criteria VTE Diagnosis No VTE Type NONE VTE Confirmed by (Test) NONE Discharge Core Measures - Per Current guidelines, there needs to be overlap - treatment for the first 5 days of Warfarin therapy. - If discharged on Warfarin prior to 5 days of - overlap therapy, the patient will need to be - assessed for post discharge needs including - *Post discharge parental anticoagulation - *Warfarin and/or parental anticoagulation education - *Follow up date to check INR post discharge At least 5 days overlap therapy as Inpatient No Meds if any: Prescribed or Continued at Discharge Note: Overlap Therapy is Warfarin and Anticoagulant Meds if any: NOT Prescribed or Continued at Discharge
--- NOTE | 2017-11-14 09:15 | ECHOCARDIOGRAM REPORT ---
SHILOH DINH Age: 77 : 1940 Gender: M Exam Date: 11/13/2017 08:44 Exam Location: 1 [address] Ht (in): 72 Wt (lb): 190 BSA: 2.10 BP: 135 / 63 Ordering Physician: Rober Giles MD Referring Physician: Rober Giles MD Technologist: Josesito Anderson [facility] Room Number: [id number] Indications: INFECTIVE ENDOCARDITIS Rhythm: Sinus Technical Quality: Fair FINDINGS Left Ventricle Normal size left ventricle. No obvious regional wall motion abnormalities. Normal left ventricular ejection fraction estimated at 60-65%. Right Ventricle Right ventricle not well visualized, grossly normal. Right Atrium Normal right atrial size. Left Atrium Left atrial size at the upper limits of normal. Mitral Valve Mitral valve thickened. Mitral annular calcification. Trace to mild mitral regurgitation. Aortic Valve Trileaflet aortic valve. Diffuse thickening (sclerosis) of the aortic valve cusps without reduced excursion. No aortic stenosis. Mild aortic regurgitation. Tricuspid Valve Tricuspid valve not well visualized, grossly normal. Trace to mild tricuspid regurgitation. Pulmonic Valve Structurally normal pulmonic valve. Trace pulmonic regurgitation. Pericardium No pericardial effusion. Great Vessels Normal size aortic root and proximal ascending aorta. CONCLUSIONS 1.Moderate aortic sclerosis is present with mild aortic insufficiency. 2.Mitral leaflet thickening is present with minimal anular calcification and minimal to mild mitral insufficiency. 3.There is no pericardial fluid detected. 4.The left ventricular chamber size and systolic function are normal. 5. Minimal to mild tricuspid and pulmonic insufficiency are present with no evidence of pulmonary hypertension. 6. There are no obvious vegetative lesions detected on this examination Elmer Morris M.D. (Electronically Signed) Final Date: 14 November 2017 09:15 MEASUREMENTS (Male / Female) Normal Values 2D ECHO LV Diastolic Diameter PLAX 5.2 cm 4.2 - 5.9 / 3.9 - 5.3 cm LV Systolic Diameter PLAX 3.2 cm 2.1 - 4.0 cm LV Fractional Shortening PLAX 38.0 % 25 - 46 % LV Ejection Fraction 2D Teich 67.8 % IVS Diastolic Thickness 1.1 cm LVPW Diastolic Thickness 1.0 cm LV Relative Wall Thickness 0.4 RV Internal Dim ED PLAX 2.9 cm 1.9 - 3.8 cm LVOT Diameter 1.9 cm Aortic Root Diameter 3.4 cm LA Systolic Diameter LX 3.5 cm 3.0 - 4.0 / 2.7 - 3.8 cm LA Volume 39.0 cm 18 - 58 / 22 - 52 cm Ascending Aorta Diameter 3.1 cm DOPPLER AV Peak Velocity 214.0 cm/s AV Peak Gradient 18.3 mmHg AV Mean Velocity 133.0 cm/s AV Mean Gradient 8.0 mmHg AV Velocity Time Integral 50.9 cm AI Deceleration [place] 208.0 cm/s AI Peak Velocity 389.0 cm/s AI Pressure Half Time 547.0 ms AI Peak Gradient 60.5 mmHg LVOT Peak Velocity 72.2 cm/s LVOT Peak Gradient 2.1 mmHg LVOT Mean Velocity 46.6 cm/s LVOT Mean Gradient 1.0 mmHg LVOT Velocity Time Integral 20.6 cm LVOT Stroke Volume 58.4 cm AV Area Cont Eq vti 1.1 cm AV Area Cont Eq pk 1.0 cm MV Peak Velocity 106.0 cm/s MV Peak Gradient 4.5 mmHg MV Mean Velocity 60.6 cm/s MV Mean Gradient 2.0 mmHg Mitral E Point Velocity 69.1 cm/s Mitral A Point Velocity 104.0 cm/s Mitral E to A Ratio 0.7 MV PHT Velocity 85.5 cm/s MV Deceleration [place] 341.0 cm/s MV Pressure Half Time 75.2 ms MV Area PHT 2.9 cm MV Deceleration Time 271.0 ms PV Peak Velocity 60.7 cm/s PV Peak Gradient 1.5 mmHg PV Mean Velocity 40.1 cm/s PV Mean Gradient 1.0 mmHg PV Velocity Time Integral 12.6 cm LV E' Lateral Velocity 8.5 cm/s Mitral E to LV E' Lateral Ratio 8.1 LV E' Septal Velocity 6.2 cm/s Mitral E to LV E' Septal Ratio 11.1
--- NOTE | 2017-11-14 11:11 | PN- Neurosurgical ---
Surgical Brief Attending Note Brief Attending Note: Pt seen this am. Was comfortable sitting in a chair reading the paper, having breakfast. reports 6/10 post axial neck pain, no new neurologic symptoms. exam stable s/p percutaneous guided biopsy with aspiration C5/6, C6/7 disc spaces yest by IR appreciate ENT c/s At this time, would await cx result and either start tailored abx regimen if positive or empiric tx if neg and follow pt clinically. At this time, any surgical intervention would be extensive and high risk given need for multilevel corpectomy and instrumented reconstruction in presence of infection and should be avoided if pt stable. I discussed this with pt this am. Call with questions.
--- NOTE | 2017-11-14 14:25 | PN- Infect Dx ---
Subjective Subjective: Afebrile. His neck pain is well controlled with pain medication and he offers no other complaints. He has had no chills since admission. Objective Last 24 Hrs of Vital Signs/I&O Vital Signs Date Time Temp Pulse Resp B/P B/P Pulse O2 O2 Flow FiO2 Mean Ox Delivery Rate 11/14 1011 82 112/60 11/14 0636 98.5 74 18 112/60 94 Room Air 11/13 2254 112/60 11/13 2214 98.0 76 18 98/60 92 11/13 1651 65 140/66 11/13 1644 98.5 65 16 140/66 95 Room Air Intake & Output 11/14 1600 11/14 0800 11/14 0000 Intake Total 200 200 Output Total Balance 200 200 Intake, Oral 200 200 Patient 185 lb Weight Physical Exam Other Physical Findings: He appears comfortable in no acute distress Neck supple, with minimal tenderness on palpation Neuro without focality Results Last 24 Hours of Lab Results: Laboratory Tests 11/14 11/13 0612 1445 Chemistry Sodium (137 - 145 mmol/L) 138 Potassium (3.5 - 5.1 mmol/L) 5.2 H Chloride (98 - 107 mmol/L) 99 Carbon Dioxide (22 - 30 mmol/L) 29 Anion Gap (5 - 16) 10 BUN (9 - 20 mg/dL) 21 H Creatinine (0.7 - 1.2 mg/dL) 0.9 Estimated GFR (>60 ml/min) > 60 BUN/Creatinine Ratio (7 - 25 %) 23.3 Hematology CBC w Diff NO MAN DIFF REQ WBC (4.8 - 10.8 /CUMM) 9.0 RBC (4.70 - 6.10 /CUMM) 4.29 L Hgb (14.0 - 18.0 G/DL) 13.6 L Hct (42 - 52 %) 40.7 L MCV (80.0 - 94.0 FL) 95.0 H MCH (27.0 - 31.0 PG) 31.8 H MCHC (33.0 - 37.0 G/DL) 33.4 RDW (11.5 - 14.5 %) 13.2 Plt Count (130 - 400 /CUMM) 368 MPV (7.4 - 10.4 FL) 7.9 Gran % (42.2 - 75.2 %) 63.7 Lymphocytes % (20.5 - 51.1 %) 24.4 Monocytes % (1.7 - 9.3 %) 9.3 Eosinophils % (0 - 5 %) 1.9 Basophils % (0.0 - 2.0 %) 0.7 Absolute Granulocytes (1.4 - 6.5 /CUMM) 5.8 Absolute Lymphocytes (1.2 - 3.4 /CUMM) 2.2 Lymphocytes (%) 11 Absolute Monocytes (0.10 - 0.60 /CUMM) 0.8 H Absolute Eosinophils (0.0 - 0.7 /CUMM) 0.2 Absolute Basophils (0.0 - 0.2 /CUMM) 0.1 % Normal PMNs (%) 85 Misc Hematology Test (%) Other Body Source Fluid Glucose (mg/dL) 117 Fluid Total Protein (g/dL) 6.9 Last 24 Hours of Stevei Results: Blood cultures 2 November 12 negative Aspiration of the C5/C6 disc space and the C6/C7 disc space negative, with AFB smears negative Recent Imaging Studies: Echocardiogram November 13 reveals moderate aortic sclerosis with mild aortic insufficiency; mitral leaflet thickening with minimal to mild mitral insufficiency; no obvious vegetations Assessment/Plan ID Impression: Stable, with temperatures and white blood cell count remaining normal, off antibiotics status post CT-guided needle aspiration of the C5/C6 and C6/C7 discs yesterday, with the cultures so far negative. The lack of fever or leukocytosis suggests the possibility of a noninfectious process, as do his negative blood cultures, and will await the final cultures. If his cultures remain negative options include (1) repeating the aspiration by IR; (2) open biopsy; (3) repeat MRI in 4 weeks with symptomatic treatment until then; (4) empiric antibiotics, which would be fraught with the usual problems associated with empiric treatment. Suggestion: 1. Follow-up cultures from the recent aspiration 2. Continue to follow off antibiotics pending above
[2017-11-14 14:47] VITALS: BP 110/62
[2017-11-14 22:00] VITALS: BP 118/64
[2017-11-14 22:20] VITALS: BP 118/64
[2017-11-15 06:09] VITALS: BP 112/66
--- NOTE | 2017-11-15 07:30 | PN- Housestaff ---
Alan BACK,Stacey 11/15/17 0729: Subjective Follow-up For: Cervical osteomyelitis/discitis Complaints: no complaints Subjective: Patient seen and examined at bedside. Patient complained of 10 x 10 neck pain and difficulty sleeping last night. Patient said after getting Percocet and melatonin he was able to sleep. Now he says his pain is 0 x 10. Otherwise he is able to ambulate well. Review of Systems Constitutional: Reports: no symptoms. Objective Last 24 Hrs of Vital Signs/I&O Vital Signs Date Time Temp Pulse Resp B/P B/P Pulse O2 O2 Flow FiO2 Mean Ox Delivery Rate 11/15 0609 97.7 94 18 112/66 93 Room Air 11/14 2200 98.8 88 18 118/64 92 Room Air 11/14 1447 97.7 79 20 110/62 93 Room Air 11/14 1011 82 112/60 Intake & Output 11/15 1600 11/15 0800 11/15 0000 Intake Total 120 450 Output Total Balance 120 450 Intake, Oral 120 450 Number 0 Bowel Movements Patient 186 lb Weight Weight Bed scale Measurement Method Physical Exam General Appearance: Alert, Oriented X3, Cooperative, No Acute Distress Neck: restricted movement Cardiovascular: Regular Rate, Normal S1, Normal S2, No Murmurs Lungs: Clear to Auscultation Abdomen: Soft, No Tenderness, No Hepatospenomegaly Neurological: Normal Speech, Strength at 5/5 X4 Ext, Normal Tone, Sensation Intact Current Medications: Current Medications Sig/Laura Start time Last Medication Dose Route Stop Time Status Admin Acetaminophen 650 MG Q6P PRN 11/12 1630 AC 11/13 PO 1652 Atorvastatin Calcium 20 MG DAILY 11/13 09 AC 11/14 PO 1012 Docusate Sodium 100 MG BID 11/14 09 AC 11/14 PO 203 Insulin Aspart 0 TIDAC/HS 11/13 1700 AC SC Lidocaine 1 PAT Q24H 11/12 1630 AC 11/14 EXT 1638 Lisinopril 10 MG DAILY 11/13 09 AC 11/14 PO 1011 Morphine Sulfate 2 MG Q4P PRN 11/12 1630 AC 11/15 IV 0517 Oxycodone/ 1 TAB Q6P PRN 11/12 1630 AC 11/14 Acetaminophen PO 203 Paroxetine HCl 20 MG DAILY 11/13 09 AC 11/14 PO 1012 Polyethylene Glycol 17 GM DAILY 11/14 0900 AC 11/14 PO 1010 Senna 187 MG AT BEDTIME 11/14 2100 AC 11/14 PO 2041 Last 24 Hrs of Lab/Stevie Results Last 24 Hrs of Labs/Mics: Laboratory Tests 11/15/17 0840: Sodium Pending, Potassium Pending, Chloride Pending, Carbon Dioxide Pending, Anion Gap Pending, BUN Pending, Creatinine Pending, BUN/Creatinine Ratio Pending Assessment/Plan Assessment: 77-year-old male with past medical history significant for hypertension, BPH, hyperlipidemia, ITP status post splenectomy 2005, anxiety, depression, disc repair at the level of C6 in 1979, who was sent in by his PCP Dr. Thomason for further evaluation of cervical spine osteomyelitis. Assessment and plan * Cervical spine osteomyelitis/discitis-patient got 1 dose of vancomycin and ceftriaxone in ED. For now we are following him off antibiotics.Patient got IR guided biopsy of the abscess. 8 mL of bloody fluid was sent for culture and cell count. We will hold off antibiotics until be get the final cultures. Awaiting blood cultures. * Echocardiogram obtained to rule out any involvement of valves-patient had no evidence of any vegetation with an ejection fraction of 60-65% * Patient is off telemetry. * Pain management with morphine, Percocet, Lidoderm patch. * We will continue his home medication finasteride, atorvastatin, lisinopril, paroxetine. Code-full code Diet-regular diet Problem List: 1. Osteomyelitis Pain Ratin Pain Location: neck Pain Goal: Remain pain free Pain Plan: Morphine and Percocet Tomorrow's Labs & Rationales: Jaron Haile MD 11/15/17 1330: Attending MD Review Statement Attending Statement Attending MD Statement: examined this patient, discuss w/resident/PA/PNEUMATIC RIVETER, agreed w/resident/PA/PNEUMATIC RIVETER, reviewed EMR data (avail) Attending Assessment/Plan: 77M PMH HTN, HLD, T2DM, neck surgery 40 years ago sent from his PCP's office after a CT of the neck obtained for chronic neck pain revealed discitis and possible osteomyelitis of C4-C6, with MRI confirming osteomyelitis. IR-guided biopsy done 11/13 without complication. Patient has no complaints today. Pain managed with Percocet. Afebrile, vitals stable, cultures negative. 1. Cervical spine acute osteomyelitis C4/C5/C6 with discitis Plan - Discontinue telemetry, transfer to general medicine - Follow cultures - Follow ID, neurosurgery, ENT recommendations - Continue Percocet q6h for pain control - Continue home medications - DVT PPx
--- NOTE | 2017-11-15 11:02 | PN- Infect Dx ---
Subjective Subjective: Afebrile. He continues to complain of neck pain, which is relieved with Percocet. He has had no fever or chills since admission. Objective Last 24 Hrs of Vital Signs/I&O Vital Signs Date Time Temp Pulse Resp B/P B/P Pulse O2 O2 Flow FiO2 Mean Ox Delivery Rate 11/15 0842 94 112/66 11/15 0609 97.7 94 18 112/66 93 Room Air 11/14 2200 98.8 88 18 118/64 92 Room Air 11/14 1447 97.7 79 20 110/62 93 Room Air Intake & Output 11/15 1600 11/15 0800 11/15 0000 Intake Total 120 450 Output Total Balance 120 450 Intake, Oral 120 450 Number 0 Bowel Movements Patient 186 lb Weight Weight Bed scale Measurement Method Physical Exam Other Physical Findings: He appears comfortable in no acute distress Neck mild resistance to flexion; tender to palpation over the posterior cervical spine and paravertebral areas Results Last 24 Hours of Lab Results: Laboratory Tests 11/15 0840 Chemistry Sodium (137 - 145 mmol/L) 139 Potassium (3.5 - 5.1 mmol/L) 4.4 Chloride (98 - 107 mmol/L) 100 Carbon Dioxide (22 - 30 mmol/L) 28 Anion Gap (5 - 16) 11 BUN (9 - 20 mg/dL) 20 Creatinine (0.7 - 1.2 mg/dL) 0.8 Estimated GFR (>60 ml/min) > 60 BUN/Creatinine Ratio (7 - 25 %) 25.0 Last 24 Hours of Stevie Results: Aspiration of C5/C6 and C6/C7 disc spaces November 13 negative after 2 days Blood cultures x 2 November 12 negative Assessment/Plan ID Impression: Stable, with temperatures and white blood cell count remaining normal, off antibiotics status post CT-guided needle aspiration of the C5/C6 and C6/C7 discs 2 days ago, with the cultures remaining negative. The lack of fever or leukocytosis suggests the possibility of a noninfectious process, as do his negative blood and aspiration cultures, though the CT and MRI findings, not seen on his initial CT 2 months prior to admission, do favor an acute process. Have discussed with Dr. Thakur, the interventional radiologist, who is reluctant to pursue a repeat aspiration; therefore options include an open biopsy, a repeat MRI in approximately 4 weeks, with symptomatic treatment until then, or empiric antibiotics, which would be fraught with the usual problems associated with empiric treatment. Suggestion: 1. Follow-up final cultures from the recent aspiration 2. Will discuss above options with the medical team 3. Continue to follow off antibiotics pending above
[2017-11-15 14:50] VITALS: BP 110/60
[2017-11-15 22:24] VITALS: BP 120/72
--- NOTE | 2017-11-16 07:00 | PN- Housestaff ---
Alan BACK,Stacey 11/16/17 0659: Subjective Follow-up For: Cervical osteomyelitis/discitis/arthritis Complaints: no complaints Subjective: Patient seen and examined at bedside no overnight events. complaints of on and off neck pain. He denies weakness, bowel or bladder incontinence. He is ambulating well Review of Systems Constitutional: Reports: no symptoms. Objective Last 24 Hrs of Vital Signs/I&O Vital Signs Date Time Temp Pulse Resp B/P B/P Pulse O2 O2 Flow FiO2 Mean Ox Delivery Rate 11/16 0946 74 130/68 11/16 0702 97.7 74 18 130/68 94 Room Air 11/15 2224 98.1 73 18 120/72 93 11/15 1600 92 Room Air 11/15 1450 97.8 89 20 110/60 92 Intake & Output 11/16 1600 11/16 0800 11/16 0000 Intake Total 400 360 640 Output Total Balance 400 360 640 Intake, IV 100 300 Intake, Oral 300 60 640 Patient 186 lb Weight Physical Exam General Appearance: Alert, Oriented X3, Cooperative, No Acute Distress Cardiovascular: Regular Rate, Normal S1, Normal S2, No Murmurs Lungs: Normal Air Movement Abdomen: Soft, No Tenderness, No Hepatospenomegaly Neurological: Normal Speech, Strength at 5/5 X4 Ext, Normal Tone, Sensation Intact Current Medications: Current Medications Sig/Laura Start time Last Medication Dose Route Stop Time Status Admin Acetaminophen 650 MG Q6P PRN 11/12 1630 AC 11/13 PO 1652 Atorvastatin Calcium 20 MG DAILY 11/13 09 AC 11/16 PO 0945 Dextrose/Sodium 1,000 ML Q20H 11/15 2330 DC 11/15 Chloride IV 11/16 1929 2341 Docusate Sodium 100 MG BID 11/14 0900 11/16 PO 0945 Hydromorphone HCl 2 MG ONCE ONE 11/16 1315 DC 11/16 PO 11/16 1316 1318 Insulin Aspart 0 TIDAC 11/16 1200 AC SC Insulin Aspart 0 TIDAC/HS 11/13 1700 DC SC 11/15 2300 Insulin Human Regular 0 Q6 11/15 2359 DC 11/16 SC 0551 Lidocaine 1 PAT Q24H 11/12 1630 AC 11/14 EXT 1638 Lisinopril 10 MG DAILY 11/13 0900 AC 11/16 PO 0946 Magnesium Hydroxide 30 ML AT BEDTIME PRN 11/15 1700 AC 11/15 PO 1723 Morphine Sulfate 2 MG Q4P PRN 11/12 1630 DC 11/16 IV 0551 Oxycodone/ 1 TAB Q6P PRN 11/12 1630 AC 11/16 Acetaminophen PO 0944 Paroxetine HCl 20 MG DAILY 11/13 0900 AC 11/16 PO 0945 Patient Medication 1 ED ONE ONE 11/15 1700 DC Teaching ED 11/15 1701 Polyethylene Glycol 17 GM DAILY 11/14 0900 AC 11/16 PO 0947 Senna 187 MG AT BEDTIME 11/14 2100 AC 11/15 PO 2059 Last 24 Hrs of Lab/Stevie Results Last 24 Hrs of Labs/Mics: Laboratory Tests 11/16/17 0616: Anion Gap 10, Estimated GFR > 60, BUN/Creatinine Ratio 27.5 H, PT 13.1 H, INR 1.20 H Assessment/Plan Assessment: 77-year-old male with past medical history significant for hypertension, BPH, hyperlipidemia, ITP status post splenectomy 2005, anxiety, depression, disc repair at the level of C6 in 1979, who was sent in by his PCP Dr. Thomason for further evaluation of cervical spine osteomyelitis. Assessment and plan * Cervical spine osteomyelitis/discitis-patient got 1 dose of vancomycin and ceftriaxone in ED. For now we are following him off antibiotics.Patient got IR guided biopsy of the abscess. 8 mL of bloody fluid was sent for culture and cell count. We will hold off antibiotics until be get the final cultures. Awaiting blood cultures. * Echocardiogram obtained to rule out any involvement of valves-patient had no evidence of any vegetation with an ejection fraction of 60-65% * Patient is off telemetry. * Pain management with morphine, Percocet, Lidoderm patch. * We will continue his home medication finasteride, atorvastatin, lisinopril, paroxetine. Code-full code Diet-regular diet Problem List: 1. Osteomyelitis 2. Discitis Pain Ratin Pain Location: NONE Pain Goal: Remain pain free Pain Plan: TYLENOL Tomorrow's Labs & Rationales: Jaron Wade MD 11/16/17 1020: Attending MD Review Statement Attending Statement Attending MD Statement: examined this patient, discuss w/resident/PA/PROFESSOR OF EXERCISE SCIENCE, agreed w/resident/PA/PROFESSOR OF EXERCISE SCIENCE, reviewed EMR data (avail) Attending Assessment/Plan: 77M PMH HTN, HLD, T2DM, neck surgery 40 years ago sent from his PCP's office after a CT of the neck obtained for chronic neck pain revealed discitis and possible osteomyelitis of C4-C6, with MRI confirming osteomyelitis. IR-guided biopsy done 11/13 without complication. Patient has no complaints today. Pain managed with Percocet. Afebrile, vitals stable, cultures negative. 1. Cervical spine acute osteomyelitis C4/C5/C6 with discitis Plan - Will speak with ID regarding discharge planning - Follow cultures - Follow ID, neurosurgery, ENT recommendations - Continue Percocet q6h for pain control - Continue home medications - DVT PPx
[2017-11-16 07:02] VITALS: BP 130/68
[2017-11-16 08:36] LABS: PT 13.1 SEC (9.4-12.5)
--- NOTE | 2017-11-16 11:43 | PN- Infect Dx ---
Subjective Subjective: Afebrile. He feels improved with decreased neck pain (on Percocet) Objective Last 24 Hrs of Vital Signs/I&O Vital Signs Date Time Temp Pulse Resp B/P B/P Pulse O2 O2 Flow FiO2 Mean Ox Delivery Rate 11/16 0946 74 130/68 11/16 0702 97.7 74 18 130/68 94 Room Air 11/15 2224 98.1 73 18 120/72 93 11/15 1600 92 Room Air 11/15 1450 97.8 89 20 110/60 92 Intake & Output 11/16 1600 11/16 0800 11/16 0000 Intake Total 100 360 640 Output Total Balance 100 360 640 Intake, IV 100 300 Intake, Oral 60 640 Patient 186 lb Weight Physical Exam Other Physical Findings: He appears comfortable in no acute distress Neck supple, with no tenderness on palpation Neuro without focality Results Last 24 Hours of Lab Results: Laboratory Tests 11/16 0616 Chemistry Sodium (137 - 145 mmol/L) 140 Potassium (3.5 - 5.1 mmol/L) 4.9 Chloride (98 - 107 mmol/L) 102 Carbon Dioxide (22 - 30 mmol/L) 28 Anion Gap (5 - 16) 10 BUN (9 - 20 mg/dL) 22 H Creatinine (0.7 - 1.2 mg/dL) 0.8 Estimated GFR (>60 ml/min) > 60 BUN/Creatinine Ratio (7 - 25 %) 27.5 H Coagulation PT (9.4 - 12.5 SEC) 13.1 H INR (0.90 - 1.17) 1.20 H Last 24 Hours of Stevie Results: Aspiration of C5/C6 and C6/C7 disc spaces November 13 negative after 3 days, with the thio broth being evaluated Blood cultures 2 November 12 negative Assessment/Plan ID Impression: Stable, with temperatures and white blood cell count remaining normal, off antibiotics status post CT-guided needle aspiration of the C5/C6 and C6/C7 discs 3 days ago, with the cultures remaining negative. Have discussed with Dr. Thakur , the interventional radiologist, who is reluctant to pursue a repeat aspiration and, as there are no plans for an open biopsy, feel that he should be followed off antibiotics with a follow-up MRI and serial ESR's as an outpatient. Of note his culture is not yet finalized, as the thio broth is being evaluated. Suggestion: 1. Follow-up final culture from his recent aspiration 2. Continue to follow off antibiotics pending above 3. If his final culture is negative would follow serial ESR's and MRIs as an outpatient
--- NOTE | 2017-11-16 12:14 | Discharge Summary ---
Visit Information Visit Dates Admission Date: 11/12/17 Discharge Date: 11/17/17 Hospital Course Course Attending Physician: Jaron Tierney MD Primary Care Physician: Amilcar Gomez MD Hospital Course: 76-year-old man with medical history of hypertension, hyperlipidemia, prediabetes, benign prostatic hyperplasia, ITP status post splenectomy, anxiety, depression, insomnia, status post C6 disc repair 1979. Patient stated his symptoms have been going on for the past two months now. He recalls the inciting event when he initially fell down (September 09), while rushing out of bed to use the bathroom, when he accidentally tripped and fell down on the floor, losing his teeth. He was seen in the ER at the time and had a CT of his head which showed no acute traumatic injury of the head, face, or cervical spine. The next week (September 16) he had another fall for which he was seen in the [facility] with complains of severe neck pain. He was prescribed pain killers and muscle relaxants at the time and discharged. On September 20, the patient was admitted under observation for AMS which was attributed to pain medications. The patient presented again (September 26) after another fall with concerns of ankle fracture. He was provided an orthopedic referral and subsequently received physical therapy. A week after around mid-September , the patient mentions that he had some dental work done for his broken teeth. On the day of admission patient had a root canal done. Throughout this period, he stated that his neck pain has been progressively getting worse. He descibed his neck pain as sharp, 8/10 in severity, radiating downwards, constant in nature, aggravated with exercise with no relieving factors. He denied any weakness, numbess, pins/needles sensation or loss of bowel/urinary control. However, he does endorsed lightheadedness which is new for him experiencing every time he gets up from bed. He was seen in his PCP office a few days ago and was recommended a CAT scan of neck which came back with findings suggestive of osteomyelitis of the neck. The patient was recommended to come to the ER for further management. Endorsed fevers and chills for the past 2-3 weeks but is unsure how high his temperature was he did not measure it. Hospital course 77-year-old man with a history of ITP, status post splenectomy, status post C6 disc repair 38 years prior to admission, status post a fall 2 months prior to admission, resulting in a nasal laceration and loss of several front teeth, with persistent neck pain over the past 2 months and fevers over the past 3 weeks, admitted today after a CT of the head and cervical spine 3 days prior to admission revealed evidence of discitis/osteomyelitis C5-C7 with a paravertebral and possibly epidural phlegmon or abscess. Cervical spine osteomyelitis/discitis Patient had osteomyelitis/discitis which can be secondary due to recent fall following which had a skin break resulting in bacteremia or direct spread from his recent root canal treatment. Endocarditis was ruled out by echocardiogram. PAtient got 1 dose of vancomycin and ceftriaxone in ED. His blood cultures were negative . be followed him off antibiotics throughout the hospital course. Patient got CT-guided aspiration of the disc space/vertebral body C5/C6 and C6/C7 discs and 8 mL of bloody fluid was sent for culture and cell count. Patient was seen by neurosurgery and ENT who suggested conservative management in view of high risk for surgery. Final cultures were negative. Patient will follow with his primary care physician with repeat MRI in 4 weeks and ESR weekly. His pain was managed with morphine, Percocet and Lidoderm patch. We will send him home with 12 pills of Percocet and follow with his primary care physician for further pain management. Patient will follow with neurosurgery and ENT as outpatient. Referral for the same was given. Allergies: Coded Allergies: No Known Allergies (09/26/17) Disposition Summary Disposition Principal Diagnosis: discitis/osteomyelitis C5-C7 with a paravertebral and possibly epidural phlegmon or abscess Additional Diagnosis: none Discharge Disposition: home or self care Discharge Instructions General Discharge Information Code Status: Full Code Patient's Diet: Regular diet Patient's Activity: as tolerated Follow-Up Instructions/Appts: Please follow-up with your primary care physician/neurosurgery/ENT within 1-2 weeks of discharge. Medications at Discharge Discharge Medications: Stop taking the following medications: Meloxicam (Meloxicam) 15 MG TABLET ORAL DAILY Qty = 30 Continue taking these medications: Trazodone HCl (Trazodone HCl) 50 MG TABLET 1 Tablet ORAL Every night Qty = 90 Comments: PT DID NOT RECEIVE IN HOSPITAL Finasteride (Finasteride) 5 MG TABLET 1 Tablet ORAL DAILY Qty = 90 Comments: PT DID NOT RECEIVE IN HOSPITAL Paroxetine HCl (Paroxetine HCl) 37.5 MG TAB.ER.24H 1 Tablet ORAL DAILY Qty = 90 Comments: Last Taken: 11/17/17 Time: 9:00 AM 20MG GIVEN IN HOSPITAL Atorvastatin Calcium (Atorvastatin Calcium) 20 MG TABLET 1 Tablet ORAL DAILY Qty = 90 Comments: Last Taken: 11/17/17 Time: 9:00 AM Metformin HCl (Metformin HCl) 500 MG TABLET 1 Tablet ORAL DAILY Qty = 90 Comments: PT DID NOT RECEIVE IN HOSPITAL Ramipril (Ramipril) 2.5 MG CAPSULE 1 Capsule ORAL DAILY Qty = 90 Comments: Last Taken: 11/17/17 Time: 9:00 AM LISINOPRIL SUBSTITUTED FOR RAMIPRIL Start taking the following new medications: Oxycodone HCl/Acetaminophen (Percocet 5-325 MG Tablet) 5 MG-325 MG TABLET 1 Tablet ORAL EVERY SIX HOURS NEEDED as needed for PAIN SCALE 4-6 ( MODERATE) Qty = 12 No Refills Instructions: . Comments: Last Taken: 11/17/17 Time: 12:15 PM Magnesium Hydroxide (Milk Of Magnesia) 400 MG/5 ML ORAL.SUSP 30 Milliliters ORAL AT BEDTIME as needed for CONSTIPATION Qty = 300 No Refills Polyethylene Glycol 3350 (Miralax) 17 GRAM/DOSE POWDER 17 Gram ORAL DAILY Qty = 30 No Refills Sennosides/Docusate Sodium (Senna-Time S Tablet) 8.6 MG-50 MG TABLET 187 Milligram ORAL AT BEDTIME Qty = 30 No Refills Copies To: Patricia BACK,Amilcar Méndez MD,Kimberli Lara
[2017-11-16 14:15] VITALS: BP 114/67
[2017-11-16] MEDS ORDERED: PERCOCET 5-3251 EACH PO (15:23)
[2017-11-16 22:04] VITALS: BP 124/68
[2017-11-17 07:06] VITALS: BP 138/80
--- NOTE | 2017-11-17 09:07 | PN- Housestaff ---
Michael BACK,Gelacio 11/17/17 09: Subjective Follow-up For: cervical discitis/osteomyelitis Subjective: neck pain is improved when laying down at rest, worse with activity has not had a bowel movement all week, on oxycodone, despite suppository afebrile, no leukocytosis, off antibiotics Review of Systems Constitutional: Reports: see HPI. Objective Last 24 Hrs of Vital Signs/I&O Vital Signs Date Time Temp Pulse Resp B/P B/P Pulse O2 O2 Flow FiO2 Mean Ox Delivery Rate 11/17 1226 108 108/70 95 Room Air Room Air 11/17 0904 87 138/80 11/17 0706 97.7 87 18 138/80 94 Room Air 11/16 2204 98.0 70 18 124/68 94 Room Air 11/16 1415 98.6 84 17 114/67 93 Room Air Intake & Output 11/17 1600 11/17 0800 11/17 0000 Intake Total 400 240 250 Output Total Balance 400 240 250 Intake, Oral 400 240 250 Patient 85.332 kg 85.332 kg Weight Physical Exam General Appearance: Alert, Oriented X3, Cooperative, No Acute Distress Cardiovascular: Regular Rate, Normal S1, Normal S2, No Murmurs Lungs: Clear to Auscultation, Normal Air Movement Abdomen: Normal Bowel Sounds, Soft, No Tenderness, No Masses Extremities: No Clubbing, No Cyanosis, No Edema, Normal Pulses Current Medications: Current Medications Sig/Laura Start time Last Medication Dose Route Stop Time Status Admin Acetaminophen 650 MG Q6P PRN 11/12 1630 AC 11/13 PO 1652 Atorvastatin Calcium 20 MG DAILY 11/13 09 AC 11/17 PO 0904 Bisacodyl 10 MG ONCE ONE 11/17 1200 DC 11/17 MI 11/17 1201 1200 Docusate Sodium 100 MG BID 11/14 09 AC 11/17 PO 0904 Hydromorphone HCl 2 MG ONCE ONE 11/16 1315 DC 11/16 PO 11/16 1316 1318 Insulin Aspart 0 TIDAC 11/16 1200 AC SC Lidocaine 1 PAT Q24H 11/12 1630 AC 11/16 EXT 1629 Lisinopril 10 MG DAILY 11/13 0900 AC 11/17 PO 0904 Magnesium Hydroxide 30 ML AT BEDTIME PRN 11/15 1700 AC 11/17 PO 0902 Morphine Sulfate 2 MG Q4P PRN 11/12 1630 DC 11/16 IV 0551 Oxycodone/ 1 TAB Q6P PRN 11/12 1630 AC 11/17 Acetaminophen PO 1225 Paroxetine HCl 20 MG DAILY 11/13 0900 AC 11/17 PO 09 Polyethylene Glycol 17 GM DAILY 11/14 0900 AC 11/17 PO 09 Senna 187 MG AT BEDTIME 11/14 2100 AC 11/16 PO 2016 Sodium Phosphate 1 UNIT ONCE ONE 11/17 1245 UNVr MI 11/17 1246 Last 24 Hrs of Lab/Stevie Results Last 24 Hrs of Labs/Mics: Laboratory Tests 11/17/17 0622: Anion Gap 10, Estimated GFR > 60, BUN/Creatinine Ratio 23.3 Assessment/Plan Assessment: 77-year-old white male with PMH of HTN, HLD, BPH, ITP s/p splenectomy, anxiety/ depression and previous cervical disc surgery C6 presented with neck pain and imaging findings consistent with cervical osteomyelitis/discitis. Osteomyelitis: Afebrile, no leukocytosis off antibiotics Analgesia with morphine, oxycodone, lidoderm s/p CT-guided needle aspiration of the C5/C6 and C6/C7 discs Cultures NGTD Infectious disease consulted, appreciate recommendations Continue to monitor off antibiotics Plan for repeat MRI and sed rates as an outpatient HTN: Continue lisinopril HLD: Continue atorvastatin BPH: Restarted finasteride Anxiety/Depression: Continue paxil Constipation: Senna/colace/Miralax Dulcolax suppository given Fleets enema x 1 now Regular diet DVT ppx-ALPs Full code Stable for discharge with outpatient re-imaging and blood tests after bowel movement Moderate hyperkalemia and elevated bicarbonate on todays chemistry, repeat in AM if not d/c'd Problem List: 1. Discitis 2. Osteomyelitis Pain Ratin Pain Location: neck Pain Goal: Pain 4 or less Pain Plan: prn Tomorrow's Labs & Rationales: cbc,bep Micah BACK,Amir 11/17/17 1103: Attending MD Review Statement Attending Statement Attending MD Statement: examined this patient, discuss w/resident/PA/OPTOMETRIST PRESIDENT/PRACTICE OWNER, agreed w/resident/PA/OPTOMETRIST PRESIDENT/PRACTICE OWNER, discussed with family, reviewed EMR data (avail), discussed with nursing Attending Assessment/Plan: Mr. Hernandez was seen and evaluated by me. Chart reviewed. He reports doing OK, however, reports recurrent falls at home. Pt was seen by Neurosurgery and ID during this admission. So far bld cx being reported as NGT. --please confirm with ID about follow up plans, once f/u appt are made, he can be d/april home -- was updated by me at the bedside. --rest of the plan as per resident's note
[2017-11-17 12:26] VITALS: BP 108/70
--- NOTE | 2017-11-17 12:41 | PN- Infect Dx ---
Subjective Subjective: This is a 77-year-old man with discitis/osteomyelitis C5-C7 with a paravertebral and possibly epidural phlegmon or abscess. Percutaneous guided biopsy with aspiration of the C5 through 7 disc spaces. He currently feels well is afebrile with improved pain. The patient's only concern is 7 days without a bowel movement. Review of Systems Comments: 13 point review of system negative except for HPI. Objective Last 24 Hrs of Vital Signs/I&O Vital Signs Date Time Temp Pulse Resp B/P B/P Pulse O2 O2 Flow FiO2 Mean Ox Delivery Rate 11/17 1226 108 108/70 95 Room Air Room Air 11/17 0904 87 138/80 11/17 0706 97.7 87 18 138/80 94 Room Air 11/16 2204 98.0 70 18 124/68 94 Room Air 11/16 1415 98.6 84 17 114/67 93 Room Air Intake & Output 11/17 1600 11/17 0800 11/17 0000 Intake Total 400 240 250 Output Total Balance 400 240 250 Intake, Oral 400 240 250 Patient 188 lb 188 lb Weight Physical Exam Other Physical Findings: Awake alert oriented 3 Pupils equal and reactive to light and accommodation Neck wound clean Lungs clear to auscultation bilaterally Heart regular rate and rhythm S1-S2 Abdomen is soft nontender normal bowel sounds No edema or rashes noted Results Last 24 Hours of Lab Results: Laboratory Tests 11/17 06 Chemistry Sodium (137 - 145 mmol/L) 142 Potassium (3.5 - 5.1 mmol/L) 5.4 H Chloride (98 - 107 mmol/L) 99 Carbon Dioxide (22 - 30 mmol/L) 32 H Anion Gap (5 - 16) 10 BUN (9 - 20 mg/dL) 21 H Creatinine (0.7 - 1.2 mg/dL) 0.9 Estimated GFR (>60 ml/min) > 60 BUN/Creatinine Ratio (7 - 25 %) 23.3 No recent white blood cell count Last 24 Hours of Stevie Results: No positive cultures Recent Imaging Studies: No recent imaging Assessment/Plan ID Impression: This patient is a 77-year-old white male with multiple medical problems. Stable, with temperatures and white blood cell count remaining normal, off antibiotics status post CT-guided needle aspiration of the C5/C6 and C6/C7 discs 4 days ago, with the cultures remaining negative. He should be followed off antibiotics with a follow-up MRI and serial ESR's as an outpatient. Plan for discharge after bowel movement Suggestion: 1. Follow-up cultures remain negative 2. Continue to follow off antibiotics 3. Follow serial ESR's and MRIs as an outpatient
[2017-11-17] MEDS ORDERED: MIRALAX119 GM PO (13:56)
[2017-11-17] MEDS ORDERED: MILK OF MA400 MG/52 PO (13:56)
[2017-11-17] MEDS ORDERED: SENNA-TIME S T1 EACH PO (13:56)
[2017-11-17] MEDS ORDERED: PERCOCET 5-3251 EACH PO (14:05)
== END 2017-11-17 14:50 | DRG 478 ==
LOC: ERH 12:27 → ERHI 14:58 → 1NO 14:58 → ENRESERV 16:09 → CANRESERV 16:09 → EDBEDREQ 18:46 → ENRESERV 19:10 → ENTRNSPT 20:10 → EDTRNSPTSTS 20:18 → EDTRNSPT 20:18 → 1NO 20:22 → CMPTRNSPT 20:49 → 1NO 11-13 07:59 → ENPENDDIS 11-17 14:05 → 1NO 11-17 14:50
PROVIDERS: Physician Assistant Medical; Student in an Organized Health Care Education/Training Program
PROC: 0P9 Upper Bones, Drainage (ICD-10-PCS; principal; 2017-11-13)
PROC: 0CJY8ZZ Inspection of Mouth and Throat, Via Natural or Artificial Opening Endoscopic (ICD-10-PCS; 2017-11-13)
DX: M46.22 Osteomyelitis of vertebra, cervical region (principal); D69.3 Immune thrombocytopenic purpura; E87.5 Hyperkalemia; E11.9 Type 2 diabetes mellitus without complications; I10 Essential (primary) hypertension; M50.322 Other cervical disc degeneration at C5-C6 level; E78.5 Hyperlipidemia, unspecified; N40.0 Benign prostatic hyperplasia without lower urinary tract symptoms; F32.9 Major depressive disorder, single episode, unspecified; F41.9 Anxiety disorder, unspecified; Z90.81 Acquired absence of spleen; K59.00 Constipation, unspecified; Z91.81 History of falling; Z79.84 Long term (current) use of oral hypoglycemic drugs; Z90.49 Acquired absence of other specified parts of digestive tract
CPT/HCPCS: 1NP; 72142; 87075; 36415; 36592; 70450; 72156; 80307; 81003; 82436; 87040; 93005; 93010; 93306; 97116-GO; 97161-GP; A9579; J0696; J1815; J2001; J3370; J7042

== ENCOUNTER 2018-01-01 09:15 | Inpatient (IN) | payer OTHER ==
[~2018-01-01] VITALS: Ht 182.9 cm; Wt 86.3 kg
[~2018-01-01 09:15] MED LIST changes: +MELOXICAM15 M1 PO; +MILK OF MA400 MG/52 PO; +MIRALAX119 GM PO; +PERCOCET 5-3251 EACH PO; +SENNA-TIME S T1 EACH PO
[2018-01-01 10:29] LABS: ABSOLUTE BASOPHIL COUNT 0 /CUMM (0.0-0.2); ABSOLUTE EOSINOPHIL COUNT 0.2 /CUMM (0.0-0.7); ABSOLUTE GRANULOCYTE CT 6.6 /CUMM (1.4-6.5); ABSOLUTE LYMPH COUNT 1.7 /CUMM (1.2-3.4); ABSOLUTE MONOCYTE COUNT 0.4 /CUMM (0.10-0.60); BASOPHIL % 0.2 % (0.0-2.0); EOSINOPHIL % 2.3 % (0-5); GRANULOCYTE % 73.6 % (42.2-75.2); HEMATOCRIT 43.8 % (42-52); MEAN CORPUSCULAR HGB 31.6 PG (27.0-31.0); MEAN CORPUSCULAR HGB CONC 33.2 G/DL (33.0-37.0); MEAN CORPUSCULAR VOLUME 95.3 FL (80.0-94.0); MEAN PLATELET VOLUME 8.4 FL (7.4-10.4); PLATELET COUNT 277 /CUMM (130-400); RBC DISTRIBUTION WIDTH 13.9 % (11.5-14.5); RED BLOOD CELL CT 4.59 /CUMM (4.70-6.10)
--- NOTE | 2018-01-01 10:49 | ED GENERAL ADULT ---
History of Present Illness General Chief Complaint: General Adult Stated Complaint: PT STATES "DR. CHACKO SENT ME FOR ADMISSION" Source: patient, family, old records, PCP Exam Limitations: no limitations Vital Signs & Intake/Output Vital Signs & Intake/Output Vital Signs Date Time Temp Pulse Resp B/P B/P Pulse O2 O2 Flow FiO2 Mean Ox Delivery Rate 01/01 1114 98 Room Air 01/01 1108 98.0 80 18 115/60 99 Room Air 01/01 0918 97.0 73 20 116/74 97 Room Air Allergies Coded Allergies: No Known Allergies (09/26/17) Reconcile Medications Atorvastatin Calcium 20 MG TABLET 1 TAB PO DAILY HLD (Reported) Finasteride 5 MG TABLET 1 TAB PO DAILY BPH (Reported) Meloxicam 7.5 MG TABLET 1 TAB PO DAILY PRN PAIN (Reported) Metformin HCl 500 MG TABLET 1 TAB PO DAILY PRE dm (Reported) Paroxetine HCl 37.5 MG TAB.ER.24H 1 TAB PO DAILY DEPRESSION (Reported) Ramipril 2.5 MG CAPSULE 1 CAP PO DAILY HTN (Reported) Triage Note: PT SENT TO ED BY DR GUTIERREZ FOR ADMISSION PT WITH WORSENING FLUID COLLECTION IN EPIDURAL/CERVIAL SPACE. PT HAD MRI 12/26. C/O NECK PAIN SINCE FALLING IN AUGUST 2016. Triage Nurses Notes Reviewed? yes HPI: Patient was seen here at the end of October for possible osteomyelitis with a fluid collection around his cervical spine. Patient had INR drainage at that time. Patient's blood work has been improving as an outpatient and he had a follow-up MRI performed earlier this week. The repeat MRI shows recurrence of the fluid collection and this time it is worse than it was last time as well as still the possible osteomyelitis changes to his cervical spine. Patient denies any fevers or chills. Patient just complains of neck stiffness. There is no weakness or numbness. There is no bowel or bladder. Patient was sent in by his primary care physician for admission to the hospital for further evaluation and treatment. Past History Travel History Traveled to [place] past 21 day No Medical History Any Pertinent Medical History? 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 No Review of Systems Review of Systems Constitutional: Reports: no symptoms. EENTM: Reports: no symptoms. Respiratory: Reports: no symptoms. Cardiovascular: Reports: no symptoms. GI: Reports: no symptoms. Genitourinary: Reports: no symptoms. Musculoskeletal: Reports: see HPI, neck pain (STIFFNESS, NO PAIN). Skin: Reports: no symptoms. Neurological/Psychological: Reports: no symptoms. Hematologic/Endocrine: Reports: no symptoms. Immunologic/Allergic: Reports: no symptoms. All Other Systems: Reviewed and Negative Physical Exam Physical Exam General Appearance: well developed/nourished, alert, awake, anxious, mild distress Head: atraumatic, normal appearance Eyes: Bilateral: PERRL, EOMI. Ears, Nose, Throat: normal pharynx, normal ENT inspection, hearing grossly normal Neck: limited range of motion, no midline tenderness Respiratory: normal breath sounds, chest non-tender, no respiratory distress, lungs clear Cardiovascular: regular rate/rhythm, normal peripheral pulses Gastrointestinal: normal bowel sounds, soft, non-tender, no organomegaly Back: normal inspection, normal range of motion Extremities: normal inspection, normal capillary refill, normal range of motion, no edema Neurologic/Psych: no motor/sensory deficits, awake, alert, oriented x 3, normal gait, normal mood/affect Skin: intact, normal color, warm/dry Lymphatic: no anterior cervical carolyn Core Measures ACS in differential dx? No CVA/TIA Diagnosis: No Sepsis Present: No Sepsis Focused Exam Completed? No Progress Differential Diagnoses I considered the following diagnoses in my evaluation of the patient: [Fluid collection, possible infection, possible osteomyelitis, malignancy] Plan of Care: Orders Procedure Date/time Status Nothing by Mouth 01/01 D Active Nothing by Mouth 01/01 B Complete LACTIC ACID 01/01 1224 Active XRY-FLUOROSCOPY,INDEPEND PROC 01/01 1123 Active ED Holding Orders 01/01 1117 Active Admit to inpatient 01/01 1117 Active Add-on Test (ER Only) 01/01 1117 Active Vital Signs 01/01 1117 Active Code Status 01/01 1117 Active PARTIAL THROMBOPLASTIN TIME 01/01 1018 Active PROTHROMBIN TIME 01/01 1018 Active BLOOD CULTURE 01/02 924 Active LACTIC ACID 01/02 924 Complete WESTERGREN SED RATE 01/02 924 Active C-REACTIVE PROTEIN 01/02 924 Complete COMPREHENSIVE METABOLIC PANEL 01/02 924 Complete CBC WITHOUT DIFFERENTIAL 01/02 924 Active Laboratory Tests 01/01/18 1018: Anion Gap 7, Estimated GFR > 60, BUN/Creatinine Ratio 16.4, Glucose 109 H, Lactic Acid 1.2, Calcium 9.6, Total Bilirubin 0.4, AST 23, ALT 26, Alkaline Phosphatase 109, C-Reactive Prot, Quant < 0.5, Total Protein 7.2, Albumin 4.2, Globulin 3.0, Albumin/Globulin Ratio 1.4, PT Pending, INR Pending, APTT Pending, CBC w Diff NO MAN DIFF REQ, RBC 4.59 L, MCV 95.3 H, MCH 31.6 H, MCHC 33.2, RDW 13.9, MPV 8.4, Gran % 73.6, Lymphocytes % 19.2 L, Monocytes % 4.7, Eosinophils % 2.3, Basophils % 0.2, Absolute Granulocytes 6.6 H, Absolute Lymphocytes 1.7, Absolute Monocytes 0.4, Absolute Eosinophils 0.2, Absolute Basophils 0, ESR Westergren Pending Microbiology 01/01 1018 BLOOD: Blood Culture - RECD 01/02 924 BLOOD: Blood Culture - ORD Initial ED EKG: PATIENT HAD AN ekg 1 MONTH AGO Comments: Discussed with Dr. ESQUEDA WHO will see him here in the emergency room and follow him as an inpatient. Departure Departure Disposition: STILL A PATIENT Condition: Stable Clinical Impression Primary Impression: Osteomyelitis Referrals: Patricia BACK,Amilcar Romero (PCP/Family) Departure Forms: Customer Survey General Discharge Information Admission Note Spoke With: Mark BACK,Emma Romero Documentation of Exam: Documentation of any treatments & extenuating circumstances including Concerns Regarding Discharge (functional status, medication knowledge or non-compliance, living conditions, etc.) that warrant an admission rather than observation: [ Patient to be admitted to general medicine, patient will require our drainage of fluid collection around the cervical spine, follow-up cultures, neurosurgical consultation, ID consultation] Critical Care Note Critical Care Note Critical Care Time: non-applicable
[2018-01-01] MEDS ORDERED: MELOXICAM7.5 M1 PO (10:50)
[2018-01-01 11:34] LABS: PT 10.3 SEC (9.4-12.5); PTT 34 SEC (25-37)
--- NOTE | 2018-01-01 12:07 | History & Physical ---
MauricioDutchchristopher 01/01/18 1207: General Information and HPI MD Statement: I have seen and personally examined SHILOH HERNANDEZ and documented this H&P. The patient is a 77 year old M who presented with a patient stated chief complaint of pain in his neck area, and follow up by his PCP. Source of Information: patient, family, old records Exam Limitations: no limitations History of Present Illness: Mr Hernandez is a 77 year old man w/ a PMHx of HTN, type 2 diabetes, ITP s/p splenectomy, C6 spinal surgery() who was had multiple mechanical falls 09/05 -10/[address] scan head findings s/o hemorrhage but had head laceration and loss of front teeth,, and eventually underwent dental procedure, who was admitted to 11/12-11/17/2017 for persistent neck pain, and fever likely secondary to C5-C6, C6-C7 Osteomyelitis/discitis w/ negative cultures including AFB+fungal cultures on drainage and was treated conservatively w/ no abx with recommendation for a follow up MRI that revealed progression of osteomyelitis in C4-C7 area done on 12/26/17. He returened to the ER after he was adivsed by his PCP to be admitted to the hospital. He reported continued pain, which is worsening in his neck area w/ no radiation to the arma and no associated neurolgical symptoms. No paresthesias, or loss of motor function. No ataxia, no bladder or bowel incontinecne. No chest pain, palpitations. No fever, no AMS. 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 Ambulation: independent IADLs Independent: shopping, housework, finances, food prep, telephone, transportation , medication admin. Review of Systems Review of Systems Constitutional: Denies: chills, fever, malaise. EENTM: Denies: blurred vision, double vision. Cardiovascular: Denies: chest pain, orthopena. Respiratory: Denies: cough, short of breath. GI: Denies: abdominal pain. Genitourinary: Denies: discharge. Musculoskeletal: Denies: back pain. Skin: Denies: change in skin color. Neurological/Psychological: Denies: cognitive dysfunction. Exam & Diagnostic Data Last 24 Hrs of Vital Signs/I&O Vital Signs Date Time Temp Pulse Resp B/P B/P Pulse O2 O2 Flow FiO2 Mean Ox Delivery Rate 01/01 1114 98 Room Air 01/01 1108 98.0 80 18 115/60 99 Room Air 01/01 0918 97.0 73 20 116/74 97 Room Air Intake & Output 01/01 1600 01/01 0800 01/01 0000 Intake Total 0 Output Total Balance 0 Intake, Oral 0 Patient 195 lb Weight Weight Reported by Patient Measurement Method Physical Exam General Appearance Alert, Oriented X3, Cooperative, No Acute Distress Skin No Rashes, No Breakdown, scar on the neck area Skin Temp/Moisture Exam: Warm/Dry Sepsis Skin Exam (color): Normal for Ethnicity, Cyanotic, Flushed HEENT Atraumatic, PERRLA, EOMI Neck Supple, No JVD, No thryomegaly, +2 Carotid Pulse wo Bruit Lymphatic Axillary nl, Cervical nl Cardiovascular Regular Rate, Normal S1, Normal S2, No Murmurs, Gallops, Rubs Lungs Clear to Auscultation, Normal Air Movement Abdomen Normal Bowel Sounds, Soft, No Tenderness, No Hepatospenomegaly Neurological Normal Speech, Strength at 5/5 X4 Ext, Normal Tone, Sensation Intact, Cranial Nerves 3-12 NL Extremities No Cyanosis, No Edema, Normal Pulses, No Tenderness/Swelling Vascular Pulses Symmetrical Body Front and Back (Adult) 1) tenderness mild, surgical scar Last 24 Hrs of Labs/Stevie: Laboratory Tests 01/01/18 1018: Anion Gap 7, Estimated GFR > 60, BUN/Creatinine Ratio 16.4, Glucose 109 H, Lactic Acid 1.2, Calcium 9.6, Total Bilirubin 0.4, AST 23, ALT 26, Alkaline Phosphatase 109, C-Reactive Prot, Quant < 0.5, Total Protein 7.2, Albumin 4.2, Globulin 3.0, Albumin/Globulin Ratio 1.4, PT 10.3, INR 0.95, APTT 34, CBC w Diff NO MAN DIFF REQ, RBC 4.59 L, MCV 95.3 H, MCH 31.6 H, MCHC 33.2, RDW 13.9, MPV 8.4, Gran % 73.6, Lymphocytes % 19.2 L, Monocytes % 4.7, Eosinophils % 2.3, Basophils % 0.2, Absolute Granulocytes 6.6 H, Absolute Lymphocytes 1.7, Absolute Monocytes 0.4, Absolute Eosinophils 0.2, Absolute Basophils 0, ESR Westergren 7 Microbiology 01/01 1209 HD AND NCK: Fungal Culture - ORD 01/01 1143 BODY FLUID: Body Fluid Culture - COLB 01/01 1143 BODY FLUID: Gram Stain - COLB 01/01 1135 BLOOD: Blood Culture - RECD 01/01 1018 BLOOD: Blood Culture - RECD Assessment/Plan Assessment: Mr Hernandez is a 77 year old man w/ a PMHx of HTN, type 2 diabetes, ITP s/p splenectomy, C6 spinal surgery() who was had multiple mechanical falls 09/05 -10/[address] scan head findings s/o hemorrhage but had head laceration and loss of front teeth,, and eventually underwent dental procedure, who was admitted to 11/12-11/17/2017 for persistent neck pain, and fever likely secondary to C5-C6, C6-C7 Osteomyelitis/discitis w/ negative cultures including AFB+fungal cultures on drainage and was treated conservatively w/ no abx with recommendation for a follow up MRI that revealed progression of osteomyelitis in C4-C7 area done on 12/26/17, he is admitted to the hospital for evaluation of neck pain and worsening radiological findings likely secondary to osteomyelitis. At the time of admission-temperature 98.0, pulse rate 80, respiration 18, blood pressure 115/60, pulse ox 99% on room air. Pertinent lab findings WBC 9.0, hemoglobin 14.5, platelets 277. Sodium 136, potassium 5.3(recheck in the am), bicarbonate 28 BUN 18, creatinine 1.1. Lactic acid 1.2 C-reactive protein 0.5 INR 0.95. ESR 55 (10/2017)-->28 (12/13/2017-->7(01/01/2018) Blood cultures, body fluid cultures from neck/disc aspiration pending AFB, fungal cultures from body fluid from neck/this pending MRI cervical spine 12/26/2017 - Progressive osteomyelitis discitis at C4-C5 and similar pattern osteomyelitis discitis at C5-C6 and C6-C7. Similar volume enhancing epidural phlegmon, prevertebral phlegmon, and phlegmon extending into the neural foramen at the involved levels. Opposing endplate erosive changes have progressed and there has been progressive disc volume loss at C4-C5 and progres sive vertebral body height loss at C5. There is no cord compression. No discrete peripherally enhancing fluid collections to suggest focal abscess. Stable reversal of the cervical lordosis. Stable appearing cervical spondylosis. Etiology in this case of progression of neck mass/accumulation is likely secondary to osteomyelitis or discitis until proven otherwise. Despite being off antibiotics, ESR has been trending down. Last cultures were negative, but given continued symptoms and increasing radiological findings it would be prudent to reevaluate with aspiration and cultures. Management have been made by infectious disease business objects consultant-Dannie Yates MD, with interventional radiology. Problem list: #1 C4-C7 probable osteomyelitis/discitis #2 history of diabetes Plan: #1 admit the patient to general medicine service. #2 CT-guided biopsy, aspiration, body fluid cultures for fungi and AFB stain ordered. Discussed with IR. #3 nothing by mouth pending this procedure. #4 follow-up culture results. #5 the patient tablets any systemic signs of infection, would start antibiotics after discussing with the infectious disease business objects consultant. #6 pain management. DVT prophylaxis-subcutaneous heparin started in the a.m. Nothing by mouth for now. As Ranked By This Provider Problem List: 1. Discitis 2. Osteomyelitis Core Measures/Misc (02/04) Acute Coronary Syndrome ACS Diagnosis: No Congestive Heart Failure Congestive Heart Failure Diagnosis No Cerebrovascular Accident CVA/TIA Diagnosis: No VTE (View Protocol) VTE Risk Factors Acute Medical Illness No Mechanical VTE Prophylaxis d/t N/A MechProphylax Ordered No VTE Pharm Prophylaxis d/t NA PharmProphylax ordered Sepsis (View protocol) Sepsis Present: No If YES complete Sepsis Event Note If YES complete Sepsis Event Note Manny Chandra MD 01/01/18 1408: General Information and HPI Allergies/Medications Home Med list Atorvastatin Calcium 20 MG TABLET 1 TAB PO DAILY HLD (Reported) Finasteride 5 MG TABLET 1 TAB PO DAILY BPH (Reported) Meloxicam 7.5 MG TABLET 1 TAB PO DAILY PRN PAIN (Reported) Metformin HCl 500 MG TABLET 1 TAB PO DAILY PRE dm (Reported) Paroxetine HCl 37.5 MG TAB.ER.24H 1 TAB PO DAILY DEPRESSION (Reported) Ramipril 2.5 MG CAPSULE 1 CAP PO DAILY HTN (Reported) Tramadol HCl 50 MG TABLET 1 TAB PO BID NECK PAIN Please do not drive or use heavy machinery while taking this medication. Core Measures/Misc (02/04) Sepsis (View protocol) If YES complete Sepsis Event Note If YES complete Sepsis Event Note Attending MD Review Statement Attending Statement Attending MD Statement: examined this patient, discuss w/resident/PA/PROFESSIONAL PROGRAMMER ANALYST, agreed w/resident/PA/PROFESSIONAL PROGRAMMER ANALYST, discussed with family, reviewed EMR data (avail), reviewed images, amended to note Attending Assessment/Plan: The patient is a 77 yo male with h/o HTN, DM2, ITP (s/p splenectomy), prior cervical surgery () and h/o mechanical falls (10/05) who had undergone a dental procedure and subsequently admitted to [facility] (11/05) for neck pain and had C5-6/6-7 discitis. Cultures were negative and he was treated w/o antibiotics. Follow-up MRI shows progression of osteomyelitis in C4-7 area () and he returned to the hospital at request of his PCP (Dr. Gomez). He has reported some increase in neck pain with no radiation down arms/etc. Denies fever, chills, or other systemic symptoms. MRI Report: IMPRESSION: - Progressive osteomyelitis discitis at C4-C5 and similar pattern osteomyelitis discitis at C5-C6 and C6-C7. Similar volume enhancing epidural phlegmon, prevertebral phlegmon, and phlegmon extending into the neural foramen at the involved levels. Opposing endplate erosive changes have progressed and there has been progressive disc volume loss at C4-C5 and progressive vertebral body height loss at C5. There is no cord compression. No discrete peripherally enhancing fluid collections to suggest focal abscess. Physical Exam: VS: T 98.0, P 80, R 18, BP 115/60, PO 98% RA HEENT: eyes- PERRLA, EOMI ryan- moist mucosa w/o lesions Neck: + mild posterior cervical tenderness w/o spasm- FROM with mild pain on lateral rotation Chest: clear Cor: RRR nl S1, S2 w/o murm Abd: BS+, soft, NT Ext: no edema Neuro: alert & oriented x 3, non-focal exam Labs/Tests- as above Impression/Plan: #Cervical Discitis/Osteomyelitis- MRI report as above. Concern regarding potential progression of an infection as per ID (Dr. Yates). Prior cultures were negative. Plan: IR to do aspiration today from ED (arranged by Dr. Yates) and will check cultures/etc. Antibiotics as per ID. Neurosurgical evaluation (?). #DM2- on Metformin at home. Plan: Will follow glucoscans and sliding scale insulin as per protocol. #Hyperlipidemia- on Atorvastatin. Plan: Continue Atorvastatin. #Essential HTN- on Ramipril. Plan: Continue Ramipril. #BPH- on Finasteride. Plan: Continue Finasteride.
--- NOTE | 2018-01-01 12:14 | Cons- Infect Disease ---
General Information and HPI Consulting Request Date of Consult: 01/01/18 Requested By: Brian Go MD Reason for Consult: Rule out cervical discitis/osteomyelitis Source of Information: patient, family, old records History of Present Illness: This is a 77-year-old man with a history of hypertension, prediabetes, ITP, status post splenectomy, BPH, status post C6 disc repair 38 years prior to admission, status post a fall 4 months prior to admission, resulting in a nasal laceration and loss of several of his front teeth, seen in the ER 2 days later with right rib, left elbow and neck pain, with a CT of the head, cervical spine and chest negative and found, after another fall several weeks later, to have a minimally displaced oblique fracture of the right distal fibula, which was managed conservatively, hospitalized 2 months prior to admission with persistent posterior neck pain and several weeks of fevers after a CT of the cervical spine revealed discitis/osteomyelitis C5 through C7, with a paravertebral and, possibly, epidural, phlegmon or abscess, confirmed on MRI, status post CT-guided aspiration of C5-C6 and C6-C7, with routine, AFB and fungal cultures negative, discharged off antibiotics with an ESR of 55, with overall improvement in his neck pain and with a decrease in his ESR to 28 after 1 month, admitted today with increasing neck pain over the last several days, with no associated fevers and chills, and with a follow-up MRI 6 days prior to admission revealing progressive osteomyelitis/discitis at C4 through C7, with similar volume enhancing epidural phlegmon, prevertebral phlegmon and phlegmon extending into the neural foramen at the involved levels, with progression of the opposing endplate erosive changes, with no cord compression or discrete peripherally enhancing fluid collection. On admission he was afebrile. Laboratory data reveals a white blood cell count of 9000, ESR 7, BUN/creatinine 18 and 1.1, with normal liver enzymes, coags normal. At present he does report some discomfort in the back of his neck but notes no radiation down the arms, weakness of the upper or lower extremities, or change in his bowels or urinary habits. Allergies/Medications Allergies: Coded Allergies: No Known Allergies (09/26/17) Home Med List: Atorvastatin Calcium 20 MG TABLET 1 TAB PO DAILY HLD (Reported) Finasteride 5 MG TABLET 1 TAB PO DAILY BPH (Reported) Meloxicam 7.5 MG TABLET 1 TAB PO DAILY PRN PAIN (Reported) Metformin HCl 500 MG TABLET 1 TAB PO DAILY PRE dm (Reported) Paroxetine HCl 37.5 MG TAB.ER.24H 1 TAB PO DAILY DEPRESSION (Reported) Ramipril 2.5 MG CAPSULE 1 CAP PO DAILY HTN (Reported) Past History Travel History Traveled to [place] past 21 day No Medical History Neurological: NONE EENT: NONE Cardiovascular: hypertension, hyperlipidemia Respiratory: NONE Gastrointestinal: NONE Hepatic: NONE Renal: benign prost hyperplasia Musculoskeletal: NONE Psychiatric: depression, insomnia Endocrine: diabetes Blood Disorders: ITP Cancer(s): NONE [employer]/Reproductive: NONE History of MRSA: No History of VRE: No History of CDIFF: No Surgical History Surgical History: appendectomy, splenectomy d/t ITP in 2006 cervical neck surgery for herniated disc Psychosocial History Services at Home: None ETOH Use: denies use Illicit Drug Use: denies illicit drug use Functional Ability ADLs Independent: dressing, eating, toileting, bathing. Ambulation: independent IADLs Independent: shopping, housework, finances, food prep, telephone, transportation , medication admin. Review of Systems Review of Systems All Other Systems: Reviewed and Negative Exam & Diagnostic Data Last 24 Hrs of Vital Signs/I&O Vital Signs Date Time Temp Pulse Resp B/P B/P Pulse O2 O2 Flow FiO2 Mean Ox Delivery Rate 01/01 1114 98 Room Air 01/01 1108 98.0 80 18 115/60 99 Room Air 01/01 0918 97.0 73 20 116/74 97 Room Air Intake & Output 01/01 1600 01/01 0800 01/01 0000 Intake Total 0 Output Total Balance 0 Intake, Oral 0 Patient 195 lb Weight Weight Reported by Patient Measurement Method Physical Exam Other Physical Findings: He is awake and alert in no acute distress. He is afebrile. Skin reveals no rash. HEENT exam is negative. Neck is supple with no adenopathy, minimally tender on palpation over the cervical spine. Lungs are clear. Heart regular rhythm with no murmur. Abdomen is soft, nontender with positive bowel sounds. Back no CVA tenderness. Extremities no cyanosis, clubbing or edema. Neuro is without focality. Last 24 Hours of Lab Results: Laboratory Tests 01/01 1018 Chemistry Sodium (137 - 145 mmol/L) 136 L Potassium (3.5 - 5.1 mmol/L) 5.3 H Chloride (98 - 107 mmol/L) 100 Carbon Dioxide (22 - 30 mmol/L) 28 Anion Gap (5 - 16) 7 BUN (9 - 20 mg/dL) 18 Creatinine (0.7 - 1.2 mg/dL) 1.1 Estimated GFR (>60 ml/min) > 60 BUN/Creatinine Ratio (7 - 25 %) 16.4 Glucose (65 - 99 mg/dL) 109 H Lactic Acid (0.7 - 2.1 mmol/L) 1.2 Calcium (8.4 - 10.2 mg/dL) 9.6 Total Bilirubin (0.2 - 1.3 mg/dL) 0.4 AST (17 - 59 U/L) 23 ALT (21 - 72 U/L) 26 Alkaline Phosphatase (< 127 U/L) 109 C-Reactive Prot, Quant (<1.0 mg/dL) < 0.5 Total Protein (6.3 - 8.2 g/dL) 7.2 Albumin (3.5 - 5.0 g/dL) 4.2 Globulin (1.9 - 4.2 gm/dL) 3.0 Albumin/Globulin Ratio (1.1 - 2.2 %) 1.4 Coagulation PT (9.4 - 12.5 SEC) 10.3 INR (0.90 - 1.17) 0.95 APTT (25 - 37 SEC) 34 Hematology CBC w Diff NO MAN DIFF REQ WBC (4.8 - 10.8 /CUMM) 9.0 RBC (4.70 - 6.10 /CUMM) 4.59 L Hgb (14.0 - 18.0 G/DL) 14.5 Hct (42 - 52 %) 43.8 MCV (80.0 - 94.0 FL) 95.3 H MCH (27.0 - 31.0 PG) 31.6 H MCHC (33.0 - 37.0 G/DL) 33.2 RDW (11.5 - 14.5 %) 13.9 Plt Count (130 - 400 /CUMM) 277 MPV (7.4 - 10.4 FL) 8.4 Gran % (42.2 - 75.2 %) 73.6 Lymphocytes % (20.5 - 51.1 %) 19.2 L Monocytes % (1.7 - 9.3 %) 4.7 Eosinophils % (0 - 5 %) 2.3 Basophils % (0.0 - 2.0 %) 0.2 Absolute Granulocytes (1.4 - 6.5 /CUMM) 6.6 H Absolute Lymphocytes (1.2 - 3.4 /CUMM) 1.7 Absolute Monocytes (0.10 - 0.60 /CUMM) 0.4 Absolute Eosinophils (0.0 - 0.7 /CUMM) 0.2 Absolute Basophils (0.0 - 0.2 /CUMM) 0 ESR Westergren (0 - 10 MM) 7 Last 24 Hours of Stevie Results: Blood cultures January 01 pending Assessment/Plan Assessment/Plan Impression: This is a 77-year-old man with a history of prediabetes, ITP, status post splenectomy, status post C6 disc repair 38 years prior to admission, status post a fall 4 months prior to admission, resulting in a nasal laceration and loss of several of his front teeth, with the development of posterior neck pain and evidence on CT and MRI of discitis/osteomyelitis from C5 through C7, status post CT-guided aspiration 6 weeks prior to admission, with routine, AFB and fungal cultures negative, admitted today with increasing neck pain over the last several days and with evidence on MRI of progressive osteomyelitis/discitis at C4 through C7, with temperatures and white blood cell count normal and with normalization of his ESR. The etiology of his cervical discitis/osteomyelitis is unclear. Certainly infection must be considered, with the initial negative aspiration possibly secondary to sampling error, though he remains afebrile with a normal white blood cell count and with his ESR now normal, suggesting resolution of the process. The MRI, however, was reviewed with Radiology and clearly shows progression of the discitis/osteomyelitis and erosion of the opposing endplates, though it is possible that the x-ray findings are lagging behind the clinical picture and, until several days prior to admission, his pain was improving. A repeat attempt at aspiration, nevertheless, would be reasonable and this has been discussed with IR, who plans to do this later today. As he is stable he can be followed off antibiotics pending the results of this procedure. If the culture is again negative options include open biopsy, for example by Neurosurgery, continued monitoring of his clinical status off antibiotics or empiric antibiotics and this can be discussed further after the results of the procedure. Suggestion: 1. Await CT-guided aspiration of the cervical disc by IR (send the specimen for routine, AFB and fungal cultures) 2. Follow off antibiotics pending above Consult Acknowledgment - Thank you for your consult request.
--- NOTE | 2018-01-01 14:30 | Admission Certification ---
Admission Certification Certification Statement - As attending physician, I certify that at the time of - admission, based on clinical presentation, severity of - symptoms, need for further diagnostic testing and - therapeutic interventions, and risk of adverse outcomes - without in-hospital treatment, in my clinical assessment, - this patient requires an acute hospital stay for a minimum - of two nights or longer. I have also considered psychsocial - factors such as support system, advanced age, financial - issues, cognitive issues, and failed out-patient treatments, - past re-admission history, safety of patient, and lack of - compliance as applicable. Specific rationale supporting this admission is: The patient presents with worsening neck pain and MRI done showing progressive cervical discitis and osteomyelitis. Needs admission for aspiration/culture of cervical area (to be done by IR) and ID/?Neurosurgery evaluation- antibiotics.
--- NOTE | 2018-01-01 16:31 | CT SCAN REPORT ---
PROCEDURE: CT-GUIDED CERVICAL SPINE/DISC SPACE BIOPSY CLINICAL INFORMATION: Progression of osteomyelitis/discitis. COMPARISON: Previous CT scans and MRIs. CONSENT: Informed consent was obtained from the patient prior to the procedure. During this process, the procedure and potential alternatives were explained, along with the intended outcome and benefits. The risks of the procedure including the possibility of an unsuccessful procedure, as well as the risks of not doing the procedure were discussed. The patient was given the opportunity to ask questions regarding the procedure and appeared competent to make decisions. A signed consent form documenting this discussion was placed in the medical record. A time out procedure was performed. ACCESS: Left neck CONTRAST: None CONSCIOUS SEDATION: The patient received intravenous conscious sedation under my direct supervision. A registered nurse monitored the patient and the patient's vital signs throughout the procedure. The total sedation time was 10 minutes. A total of 1 mg of Versed and 50 mcg fentanyl was given for good effect. MEDICATIONS: 5 mL 1% lidocaine GUIDANCE: CT COMPLICATIONS: None FLUOROSCOPY TIME: 6.4 seconds DLP: 141.04 mGy-cm TECHNIQUE/FINDINGS: The patient was placed on the procedure table in the supine position and a preliminary scan of the neck was performed. This demonstrates the destructive changes present at the C4-C5 and C5-C6 disc spaces along with increased soft tissue swelling anteriorly. A site at the C5-C6 level was chosen for aspiration and the neck was then prepped and draped. All elements of maximal sterile barrier technique were followed including use of cap, mask, sterile gown, sterile gloves, a sterile full body drape and hand hygiene. Also followed was skin preparation with 2% chlorhexidine for cutaneous antisepsis. After instillation of 1% lidocaine for local anesthesia, a 20-gauge Belia needle was advanced into the phlegmon anterior to the C5-C6 area and multiple samples were obtained from the bone as well as the soft tissues. This was placed in a sterile container for Gram stain, culture and sensitivity. A small amount of the material was submitted for cytology. The patient tolerated the procedure well. A repeat CT scan after the biopsy showed no evidence of hemorrhage. IMPRESSION: Successful aspiration of C5-C6 area/discitis/phlegmon.
[2018-01-01 16:53] VITALS: BP 112/72
[2018-01-01 21:19] VITALS: BP 118/66
[2018-01-02 06:36] VITALS: BP 124/66
--- NOTE | 2018-01-02 06:52 | PN- Housestaff ---
Dwayne Addison 01/02/18 0651: Subjective Follow-up For: Possible osteomyelitis Abnormal cervical MRI findings Hypertension Hyperlipidemia Pre-diabetes mellitus Benign prostatic hyperplasia ITP S/P splenectomy Anxiety/depression C6 disc repair in Subjective: I visited with the patient this morning, he was lying back in his bed, in no acute distress, alert and oriented 3. He mentioned that he has neck pain 2 out of 10 which is worsened when he rotates his head. He had no complaints of fever, chills, sweating, dizziness, lightheadedness, chest pain, abdominal pain, constipation, diarrhea, or dysuria. Review of Systems Constitutional: Reports: see HPI. Objective Last 24 Hrs of Vital Signs/I&O Vital Signs Date Time Temp Pulse Resp B/P B/P Pulse O2 O2 Flow FiO2 Mean Ox Delivery Rate 01/02 0838 97.5 52 20 124/66 01/02 0636 97.5 52 20 12466 94 Room Air 01/01 2119 97.5 56 20 118/66 93 01/01 1653 97.6 55 18 112/72 96 Intake & Output 01/02 1600 01/02 0800 01/02 0000 Intake Total 250 310 Output Total Balance 250 310 Intake, IV 10 10 Intake, Oral 240 300 Number 0 Bowel Movements Patient 190 lb Weight Weight Bed scale Measurement Method Physical Exam General Appearance: Alert, Oriented X3, Cooperative, No Acute Distress Skin: No Rashes HEENT: old scar at back of his neck with mild tenderness Neck: Supple, No JVD, No LAD Cardiovascular: Regular Rate, Normal S1, Normal S2 Lungs: Clear to Auscultation, Normal Air Movement Abdomen: Normal Bowel Sounds, Soft, No Tenderness, No Hepatospenomegaly Neurological: Normal Speech, Strength at 5/5 X4 Ext, Normal Tone, Sensation Intact Extremities: No Clubbing, No Cyanosis, No Edema, Normal Pulses, No Tenderness/ Swelling Vascular: Normal Pulses, Pulses Symmetrical Assessment/Plan Assessment: Mr Hernandez is a 77 year old man w/ a PMHx of HTN, type 2 diabetes, ITP s/p splenectomy, C6 spinal surgery() who was had multiple mechanical falls 09/05 -10/[address] scan head findings s/o hemorrhage but had head laceration and loss of front teeth,, and eventually underwent dental procedure, who was admitted to 11/12-11/17/2017 for persistent neck pain, and fever likely secondary to C5-C6, C6-C7 Osteomyelitis/discitis w/ negative cultures including AFB+fungal cultures on drainage and was treated conservatively w/ no abx with recommendation for a follow up MRI that revealed progression of osteomyelitis in C4-C7 area done on 12/26/17, he is admitted to the hospital for evaluation of neck pain and worsening radiological findings likely secondary to osteomyelitis. In this hospital admission, the patient was afebrile with ESR of 7, biopsy was taken from the cervical spine by IR, Gram stain was negative, sample was sent for culture, waiting for results of the culture. We talked to Dr. Yates about his case, he believes he can discharge the patient off antibiotics, and follow-up as outpatient with the results of the culture. Mr. Hernandez needs to follow-up with Dr. Yates for the results of the biopsy culture, and the appropriate plan for his treatment based on the results of the biopsy. #1 C4-C7 probable osteomyelitis/discitis #2 history of diabetes Problem List: 1. Osteomyelitis 2. HTN (hypertension) 3. Hyperlipidemia 4. BPH (benign prostatic hyperplasia) 5. Anxiety and depression Pain Ratin Pain Location: Neck Pain Goal: decrease Pain Plan: Percocet Tramadol Tomorrow's Labs & Rationales: Not applicable Manny Chandra MD 01/02/181: Attending MD Review Statement Attending Statement Attending MD Statement: examined this patient, discuss w/resident/PA/[facility], agreed w/resident/PA/[facility], discussed with family, reviewed EMR data (avail), discussed with nursing, discussed with case mgmt, reviewed images, amended to note Attending Assessment/Plan: The patient was seen and discussed with house staff and ID (Dr. Yates). As ESR was normal (7), WBC normal and no organism seen on aspiration, will discharge to home today off of antibiotics. Dr. Yates will be checking cultures and if positive he will arrange for PICC line and home IV antibiotics. If any fever or worsening of symptoms, the patient will return to the hospital.
[2018-01-02 07:44] LABS: ABSOLUTE BASOPHIL COUNT 0 /CUMM (0.0-0.2); ABSOLUTE EOSINOPHIL COUNT 0.3 /CUMM (0.0-0.7); ABSOLUTE GRANULOCYTE CT 6.1 /CUMM (1.4-6.5); ABSOLUTE LYMPH COUNT 2.4 /CUMM (1.2-3.4); ABSOLUTE MONOCYTE COUNT 0.7 /CUMM (0.10-0.60); BASOPHIL % 0.3 % (0.0-2.0); EOSINOPHIL % 3.2 % (0-5); GRANULOCYTE % 63.5 % (42.2-75.2); HEMATOCRIT 41.8 % (42-52); MEAN CORPUSCULAR HGB 32.1 PG (27.0-31.0); MEAN CORPUSCULAR VOLUME 94.6 FL (80.0-94.0); PLATELET COUNT 260 /CUMM (130-400); RBC DISTRIBUTION WIDTH 14.2 % (11.5-14.5); RED BLOOD CELL CT 4.42 /CUMM (4.70-6.10); WHITE BLOOD CELL COUNT 9.6 /CUMM (4.8-10.8)
[2018-01-02 08:38] VITALS: BP 124/66
--- NOTE | 2018-01-02 11:59 | Patient Discharge Instructions ---
Discharge Instructions General Discharge Information You were seen/treated for: Possible osteomyelitis Past medical history of hypertension, hyperlipidemia, prediabetes mellitus, benign prostatic hyperplasia, ITP, previous splenectomy You had these procedures: Biopsy taken from site of possible osteomyelitis in your cervical vertebra Special Instructions: Please follow up with your pcp within [address] Yates (Infectious Disease) will follow up with you and your pcp in regards to your biopsy results. Acute Coronary Syndrome Inclusion Criteria At DC or during hospital stay patient has or had the following: ACS DIAGNOSIS No Discharge Core Measures Meds if any: Prescribed or Continued at Discharge Meds if any: NOT Prescribed or Continued at Discharge Congestive Heart Failure Inclusion Criteria At DC or during hospital stay patient has or had the following: CHF DIAGNOSIS No Discharge Core Measures Meds if any: Prescribed or Continued at Discharge Meds if any: NOT Prescribed or Continued at Discharge Cerebrovascular accident Inclusion Criteria At DC or during hospital stay patient has or had the following: CVA/TIA Diagnosis No Discharge Core Measures Meds if any: Prescribed or Continued at Discharge Meds if any: NOT Prescribed or Continued at Discharge Venous thromboembolism Inclusion Criteria VTE Diagnosis No VTE Type NONE VTE Confirmed by (Test) NONE Discharge Core Measures - Per Current guidelines, there needs to be overlap - treatment for the first 5 days of Warfarin therapy. - If discharged on Warfarin prior to 5 days of - overlap therapy, the patient will need to be - assessed for post discharge needs including - *Post discharge parental anticoagulation - *Warfarin and/or parental anticoagulation education - *Follow up date to check INR post discharge At least 5 days overlap therapy as Inpatient No Meds if any: Prescribed or Continued at Discharge Note: Overlap Therapy is Warfarin and Anticoagulant Meds if any: NOT Prescribed or Continued at Discharge
[2018-01-02] MEDS ORDERED: TRAMADOL HCL50 M1 PO ×2 (12:10→12:20)
--- NOTE | 2018-01-02 12:11 | PN- Infect Dx ---
Subjective Subjective: Afebrile. He feels well, status post treatment with Percocet 8 hours ago and Ultram this morning. Objective Last 24 Hrs of Vital Signs/I&O Vital Signs Date Time Temp Pulse Resp B/P B/P Pulse O2 O2 Flow FiO2 Mean Ox Delivery Rate 01/02 0838 97.5 52 20 124/66 01/02 0636 97.5 52 20 124/66 94 Room Air 01/01 2119 97.5 56 20 118/66 93 01/01 1653 97.6 55 18 112/72 96 01/01 1309 97.6 55 18 107/54 96 Room Air Intake & Output 01/02 1600 01/02 0800 01/02 0000 Intake Total 250 310 Output Total Balance 250 310 Intake, IV 10 10 Intake, Oral 240 300 Number 0 Bowel Movements Patient 190 lb Weight Weight Bed scale Measurement Method Physical Exam Other Physical Findings: He appears comfortable in no acute distress Exam is without change Results Last 24 Hours of Lab Results: Laboratory Tests 01/02 01/01 01/01 0652 1532 1224 Chemistry Sodium (137 - 145 mmol/L) 136 L Potassium (3.5 - 5.1 mmol/L) 5.3 H Chloride (98 - 107 mmol/L) 105 Carbon Dioxide (22 - 30 mmol/L) 26 Anion Gap (5 - 16) 6 BUN (9 - 20 mg/dL) 19 Creatinine (0.7 - 1.2 mg/dL) 0.9 Estimated GFR (>60 ml/min) > 60 BUN/Creatinine Ratio (7 - 25 %) 21.1 Lactic Acid Cancelled Hematology CBC w Diff NO MAN DIFF REQ WBC (4.8 - 10.8 /CUMM) 9.6 RBC (4.70 - 6.10 /CUMM) 4.42 L Hgb (14.0 - 18.0 G/DL) 14.2 Hct (42 - 52 %) 41.8 L MCV (80.0 - 94.0 FL) 94.6 H MCH (27.0 - 31.0 PG) 32.1 H MCHC (33.0 - 37.0 G/DL) 34.0 RDW (11.5 - 14.5 %) 14.2 Plt Count (130 - 400 /CUMM) 260 MPV (7.4 - 10.4 FL) 9.0 Gran % (42.2 - 75.2 %) 63.5 Lymphocytes % (20.5 - 51.1 %) 25.4 Monocytes % (1.7 - 9.3 %) 7.6 Eosinophils % (0 - 5 %) 3.2 Basophils % (0.0 - 2.0 %) 0.3 Absolute Granulocytes (1.4 - 6.5 /CUMM) 6.1 Absolute Lymphocytes (1.2 - 3.4 /CUMM) 2.4 Absolute Monocytes (0.10 - 0.60 /CUMM) 0.7 H Absolute Eosinophils (0.0 - 0.7 /CUMM) 0.3 Absolute Basophils (0.0 - 0.2 /CUMM) 0 Other Body Source Fluid WBC Cancelled Fld Total RBCs Counted Cancelled Last 24 Hours of Stevie Results: Cervical disc space aspiration January 01 negative, with the gram stain revealing rare white blood cells and no organisms Assessment/Plan ID Impression: Stable, with his temperatures and white blood cell count remaining normal, off antibiotics status post cervical disc aspiration yesterday for discitis/ osteomyelitis seen on the MRI, which has progressed from the previous MRI, done on his recent hospitalization 6 weeks prior to admission, though his ESR has normalized. Options at this point, as discussed, include following him off antibiotics, with a repeat MRI in several weeks, or empiric therapy with broad- spectrum antibiotics. As he reports overall clinical improvement over the past 6 weeks and his ESR has decreased am inclined to favor the former. Suggestion: 1. Follow-up final culture from the recent disc space aspiration 2. Continue to follow off antibiotics 3. If he is to be discharged will need a follow-up MRI and follow-up appointment with me in several weeks
--- NOTE | 2018-01-02 16:38 | Discharge Summary ---
Visit Information Visit Dates Admission Date: 01/01/18 Discharge Date: 01/02/18 Hospital Course Course Attending Physician: Manny Chandra MD Primary Care Physician: Patricia BACK,Amilcar Romero Consulting Request: Consulting Specialty: Infectious Disease Consulting Physician: Dannie Yates MD Reason for Consult: Possible Osteomyelitis on MRI Hospital Course: Mr Hernandez is a 77 year old man w/ a PMHx of HTN, type 2 diabetes, ITP s/p splenectomy, C6 spinal surgery() who was had multiple mechanical falls 09/05 -10/[address] scan head findings s/o hemorrhage but had head laceration and loss of front teeth,, and eventually underwent dental procedure, who was admitted to 11/12-11/17/2017 for persistent neck pain, and fever likely secondary to C5-C6, C6-C7 Osteomyelitis/discitis w/ negative cultures including AFB+fungal cultures on drainage and was treated conservatively w/ no abx with recommendation for a follow up MRI that revealed progression of osteomyelitis in C4-C7 area done on 12/26/17, he is admitted to the hospital for evaluation of neck pain and worsening radiological findings likely secondary to osteomyelitis. In this hospital admission, the patient was afebrile with ESR of 7, biopsy was taken from the cervical spine by IR, Gram stain was negative, sample was sent for culture, waiting for results of the culture. We talked to Dr. Yates about his case, he believes he can discharge the patient off antibiotics, and follow-up as outpatient with the results of the culture. Mr. Hernandez needs to follow-up with Dr. Yates for the results of the biopsy culture, and the appropriate plan for his treatment based on the results of the biopsy. 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 consult for the results of the culture of the biopsy specimen from your cervical spine. Please follow-up with your PCP Please call your PCP if you have fever, chills, sweating, or severe neck pain Medications at Discharge Discharge Medications: Continue taking these medications: Finasteride (Finasteride) 5 MG TABLET 1 Tablet ORAL DAILY Qty = 90 Comments: Last Taken: 01/02/18 Time: 08 Paroxetine HCl (Paroxetine HCl) 37.5 MG TAB.ER.24H 1 Tablet ORAL DAILY Qty = 90 Comments: Last Taken: 01/02/18 Time: 45 Atorvastatin Calcium (Atorvastatin Calcium) 20 MG TABLET 1 Tablet ORAL DAILY Qty = 90 Comments: NOT TAKEN Metformin HCl (Metformin HCl) 500 MG TABLET 1 Tablet ORAL DAILY Qty = 90 Comments: NOT TAKEN Ramipril (Ramipril) 2.5 MG CAPSULE 1 Capsule ORAL DAILY Qty = 90 Comments: NOT GIVEN Meloxicam (Meloxicam) 7.5 MG TABLET 1 Tablet ORAL DAILY as needed for PAIN Comments: NOT GIVEN Start taking the following new medications: Tramadol HCl (Tramadol HCl) 50 MG TABLET 1 Tablet ORAL TWICE DAILY Qty = 6 No Refills Instructions: Please do not drive or use heavy machinery while taking this medication. Comments: Last Taken: 01/02/18 Time: 0745 Copies To: Patricia BACK,Amilcar Fong MD Review Statement Documenting Attending: Manny Chandra MD Other Findings: The patient was seen and discussed with ID (Dr. Yates). As ESR was normal (7) and no organisms seen on gram stain of aspirate, will discharge to home today off of antibiotics. Dr. Yates will monitor culture results and if positive he will arrange PICC line placement and OP IV antibiotics. He also wishes to repeat the MRI as OP.
== END 2018-01-02 13:10 | DRG 478 ==
LOC: ERH 09:15 → ERHI 11:17 → 2NB 11:17 → ENRESERV 15:13 → ENTRNSPT 16:34 → EDTRNSPT 16:38 → EDTRNSPTSTS 16:38 → 2NB 16:48 → CMPTRNSPT 16:59 → 2NB 01-02 13:10
PROVIDERS: Internal Medicine Endocrinology, Diabetes & Metabolism; Physician Assistant Medical
PROC: 0P9 Upper Bones, Drainage (ICD-10-PCS; principal; 2018-01-01)
DX: M46.22 Osteomyelitis of vertebra, cervical region (principal); L02.11 Cutaneous abscess of neck; M46.42 Discitis, unspecified, cervical region; E11.69 Type 2 diabetes mellitus with other specified complication; Z79.84 Long term (current) use of oral hypoglycemic drugs; E78.5 Hyperlipidemia, unspecified; I10 Essential (primary) hypertension; N40.0 Benign prostatic hyperplasia without lower urinary tract symptoms; Z90.81 Acquired absence of spleen
CPT/HCPCS: 2NSBP; 87070; 87075; 36592; 77012; 82436; 87040; 88305; J1644; J2001